=== PATIENT | female | born 1945 | race Caucasian/White ===

== ENCOUNTER → 2016-08-24 | Outpatient (CLI) | payer BC ==
[~2016-08-24] MED LIST: CALC500C70 PO; CDN15 PO; FRS/40 PO; MULT-513 PO; OMEP40CA PO; SPIR50TA3 PO
[2016-08-24 15:38] LABS: URINE APPEARANCE CLEAR (CLEAR); URINE BILIRUBIN NEG (NEG); URINE COLOR YELLOW; URINE NITRITE NEG (NEG); URINE PH 5.5 (4.5-7.5); URINE SPECIFIC GRAVITY 1.011 (1.000-1.030); UROBILINOGEN NEG (NEG)
[2016-08-24 15:39] LABS: MANUAL MICROSCOPIC REQUIRED? NO; REVIEW REQ? NO
== END | disposition home or self-care (01) ==
LOC: C.LAB1850 14:45
PROVIDERS: ATTEND Internal Medicine
DX: R30.0 Dysuria (principal)

== ENCOUNTER → 2016-09-30 | Outpatient (CLI) | payer BC ==
[~2016-09-30] MED LIST changes: +OPTIRAY 320 IV PRN
--- NOTE | 2016-09-30 09:24 | DIAGNOSTIC IMAGING REPORT ---
CT SCAN OF THE CHEST WITH IV CONTRAST CLINICAL HISTORY: Cholangiocarcinoma. COMPARISON STUDY: Chest CT scans dated 06/28/2016 and 12/18/2015. TECHNIQUE: Following the IV administration of 117 cc of Optiray 320, CT scan of the thorax was performed from the thoracic inlet to the upper abdomen. Images are reviewed in the axial, sagittal, and coronal planes. The patient had a mild contrast reaction and was treated in CT. The patient felt better and subsequently went to the cancer center. FINDINGS: Thyroid: Imaged portions of the thyroid gland are normal in size and attenuation. Thoracic aorta: The thoracic aorta is normal in caliber and demonstrates standard 3-vessel arch anatomy. No dissection is seen. A left subclavian central venous infusion port is in place. Pulmonary vasculature: The pulmonary trunk is normal in caliber. There are no filling defects identified in the central pulmonary vessels to indicate pulmonary embolus. Note that this examination was not protocoled for evaluation of the pulmonary arteries. Heart: The heart is normal in size and configuration, and without pericardial effusion. The coronary arteries are calcified. Lungs and pleural spaces there is no airspace consolidation or pleural effusion. The trachea and central airways are clear. Findings are consistent with multifocal pulmonary metastatic disease with greater than 20 lesions present. These nodules appear to have modestly increased in size and number from 06/28/2016. The largest lesions are seen in the right lower lobe on image #129 measuring 10 mm (previously measured 6 mm), and at the right lung base on image #181 measuring 8 mm (previously measuring 6 mm). Mediastinum: There is no mediastinal lymphadenopathy. Taniya: Clear. Axillae: There is no axillary lymphadenopathy. Upper abdomen: Evaluation of the upper abdomen is significantly degraded by motion artifact. The spleen is enlarged, measuring 14.6 cm in length. Intrahepatic or ductal dilatation is noted in the left lobe which demonstrates heterogeneous enhancement. See report of abdominal CT performed concurrently for detailed intra-abdominal findings. Skeletal structures: The skeletal structures are osteopenic. No lytic or blastic bony lesions are seen. IMPRESSION: 1. The patient experienced a mild contrast reaction during the procedure. Premedication will be required for future examinations 2. There is multifocal metastatic pulmonary disease, with greater than 20 lesions identified. There has been modest progression in the size and number of lesions from the 06/28/2016 examination. 3. No airspace consolidation or pleural effusion is seen. 4. No mediastinal, hilar, or axillary lymphadenopathy is seen. 5. Splenomegaly. 6. Intrahepatic biliary ductal dilatation and heterogeneous enhancement is noted in the left hepatic lobe. See report of abdominal CT performed concurrently for detailed intra-abdominal findings. Electronically signed by: Evaristo Kay M.D. 09/30/2016 9:23 AM Dictated Date/Time: 09/30/2016 9:09 AM
--- NOTE | 2016-09-30 09:26 | DIAGNOSTIC IMAGING REPORT ---
ABDOMEN AND PELVIS CT WITH IV AND ORAL CONTRAST CT DOSE: 646.04 mGy.cm HISTORY: There is no CHOLANGIOCARCINOMA TECHNIQUE: Multiaxial CT images of the abdomen and pelvis were performed following the use of intravenous and oral contrast. COMPARISON STUDY: 06/02/2016 FINDINGS: Mildly progressive basilar pulmonary nodularity. There is been a mild increase in size as well as number of parenchymal nodules. Several new nodules measuring up to 3 mm are present. Several pre-existing nodules have increased 1 to 2 mm. Liver continues to demonstrate a component of mild cirrhotic change. Biliary ductal distention of the left hepatic lobe is similar. Gallbladder is somewhat contracted. There again appears be a small gallstone the region of the gallbladder neck. Spleen is mildly enlarged. This is stable. Kidneys enhance appropriately. Bowel pattern is nonobstructive. Fibroid-type uterus is again noted. IMPRESSION: 1. Slightly progressive basilar pulmonary nodularity.. 2. Stable hepatic cirrhotic change is stable distention of the left hepatic lobe biliary ductal system. 3. Gallstone the region of the gallbladder neck unchanged 4. No new or interval process within the abdominal or pelvic regions Electronically signed by: Keo Bruce M.D. 09/30/2016 9:25 AM Dictated Date/Time: 09/30/2016 9:10 AM
== END | disposition home or self-care (01) ==
LOC: C.CTS 08:29
PROVIDERS: ATTEND Internal Medicine Hematology & Oncology
DX: C22.1 Intrahepatic bile duct carcinoma (principal); R16.1 Splenomegaly, not elsewhere classified; K74.60 Unspecified cirrhosis of liver; C78.00 Secondary malignant neoplasm of unspecified lung

== ENCOUNTER → 2016-11-23 | Outpatient (CLI) | payer BC ==
[~2016-11-23] MED LIST changes: +AMOX1TAB43 PO; +CLC100 PO; +CPR500 PO; +CRG/20 PO; +MRLP17X PO; -OPTIRAY 320 IV PRN; +OXYC-609 PO; +POLY1POW2 PO; +POLY335019 PO; +PRLSR20 PO; +ULT50X PO
--- NOTE | 2016-11-23 08:39 | DIAGNOSTIC IMAGING REPORT ---
CT OF THE ABDOMEN WITH ORAL CONTRAST CT DOSE: 205.21 mGy.cm CLINICAL HISTORY: Increasing abdominal pain. Cholangiocarcinoma. TECHNIQUE: Axial images of the abdomen were obtained without IV contrast. Oral contrast was ministered. COMPARISON STUDY: CT of the abdomen and pelvis September 30, 2016. FINDINGS: Visualized portions of the lower chest demonstrate slight increase in size of multiple pulmonary nodules since exam of September 30, 2016. An index right lower lobe nodule shown on image 43 of 301 measures 9 mm on this exam. It previously measured 8 mm. An index left lower lobe nodule shown on image 5 measures 7 mm. It previously measured 6 mm. Evaluation of the abdomen and pelvis is suboptimal given the lack of IV contrast. Marked left hepatic lobe biliary ductal dilatation is unchanged. There is left hepatic lobe atrophy. Abrupt cut off of the left hepatic duct is again noted. The liver is cirrhotic. Splenomegaly is unchanged. There is trace abdominal ascites. Small collaterals are noted. There is no hydronephrosis. A punctate right renal calculus is noted. Gallstones within the gallbladder noted to the gallbladder is nondistended. No suspicious osseous lesions are present. Caliber of visualized small and large bowel are normal. Sensitivity for detection of hepatic lesions is diminished on this unenhanced study. IMPRESSION: 1. No significant change in left hepatic lobe biliary ductal dilatation with abrupt cut off of the left hepatic duct due to known cholangiocarcinoma. 2. Cirrhosis with manifestations of portal hypertension including trace ascites, splenomegaly and varices formation. 3. Cholelithiasis with gallbladder wall thickening. 4. Slight increase in size of multiple pulmonary nodules since CT of September 30, 2016 which favors progression of metastatic disease. 5. Suboptimal evaluation of the abdomen given the lack of IV contrast. Electronically signed by: Panda Peter M.D. 11/23/2016 8:38 AM Dictated Date/Time: 11/23/2016 8:25 AM
== END | disposition home or self-care (01) ==
LOC: C.CTS 07:39
PROVIDERS: ATTEND Internal Medicine
DX: K80.20 Calculus of gallbladder without cholecystitis without obstruction (principal); K76.6 Portal hypertension; K74.69 Other cirrhosis of liver; C22.1 Intrahepatic bile duct carcinoma

== ENCOUNTER → 2017-01-25 | Outpatient (CLI) | payer BC ==
[~2017-01-25] MED LIST changes: -AMOX1TAB43 PO; -CLC100 PO; -CPR500 PO; -CRG/20 PO; -MRLP17X PO; +MethylPREDNISolone HOME PACK 16 MG TAB PO SCH; +OPTIRAY 320 IV PRN; -OXYC-609 PO; -POLY1POW2 PO; -POLY335019 PO; -PRLSR20 PO; -ULT50X PO
--- NOTE | 2017-01-25 14:26 | DIAGNOSTIC IMAGING REPORT ---
(CHEST) THORAX WITH HISTORY:71 yearsFemaleCHOLANGIO CARCINOMA metastatic disease follow-up. COMPARISON: CT abdomen and pelvis of same day, CT chest 09/30/2016. TECHNIQUE: Multiple axial CT images of the chest were obtained following the intravenous administration of 94 mL Optiray 320. FINDINGS: No dominant thyroid nodule is seen. There are a few scattered prominent pretracheal lymph nodes seen which appear unchanged. No new adenopathy identified. The heart is normal in size without pericardial effusion. Coronary arterial calcifications are noted. Left subclavian catheter terminates in the proximal right atrium. There is mild mixed plaquing of the thoracic aorta. There is no pneumothorax or pleural effusion. Multiple scattered pulmonary metastasis are again seen a multilobar distribution bilaterally with predilection for the lower lobes. Several of these nodules are slightly larger from the comparison study dated 09/30/2016. For example index nodule of the superior segment right lower lobe on image 25 of the axial series measures 10 x 9 mm, previously 8 x 8 mm. Index nodule of the lateral basal segment right lower lobe on image 35 of the axial series measures 9 x 8 mm, previously 7 x 6 mm. Index nodule of the left lower lobe seen on image 29 now measures 6 x 5 mm, previously 5 x 4 mm. Central airways are patent. No definite pleural metastasis identified. Intrahepatic biliary ductal dilatation with heterogeneous enhancement and capsular contraction of the left hepatic lobe is again seen. There is circumferential wall thickening of the gallbladder with a moderate amount of perihepatic ascites. Spleen is again enlarged, 14.5 cm. There is moderate pancreatic atrophy. Soft tissues are unremarkable. No suspicious lytic or blastic bony foci identified. IMPRESSION: 1. Multifocal multilobar distribution of pulmonary metastasis redemonstrated with several of the lesions noticeably increased in size from the comparison study dated 09/30/2016 compatible with progression of disease. 2. No new adenopathy identified. 3. Unchanged splenomegaly. 4. Please see abdomen and pelvis study of same day for discussion of the abdominal findings. The above report was generated using voice recognition software. It may contain grammatical, syntax or spelling errors. Electronically signed by: Cuong Garcia M.D. 01/25/2017 2:24 PM Dictated Date/Time: 01/25/2017 2:15 PM
--- NOTE | 2017-01-25 14:33 | DIAGNOSTIC IMAGING REPORT ---
CT SCAN OF THE ABDOMEN AND PELVIS WITH IV CONTRAST CLINICAL HISTORY: Cholangiocarcinoma. COMPARISON STUDY: Prior abdominal CT scans, most recently dated 11/23/2016. TECHNIQUE: Following the IV administration of 94 cc of Optiray 320, CT scan of the abdomen and pelvis is performed from the lung bases to the proximal femora. Images are reviewed in the axial, sagittal, and coronal planes. The patient was premedicated for a reported history of contrast allergy. IV contrast was administered without complication. Automated dose control exposure was utilized. FINDINGS: Lung bases: The tip of a central venous infusion port is noted at the cavoatrial junction. The heart is normal in size and without pericardial effusion. There are coronary artery calcifications. A small hiatal hernia is noted. There is no airspace consolidation or pleural effusion. Pulmonary metastases are again seen at both lung bases. These increased in both size and number from 11/23/2016. The largest lesion is seen in the right lower lobe on image #29 and measures 1.1 cm (previously measured 0.9 cm) there is Liver: The contrast-enhanced liver is cirrhotic in morphology and heterogeneous in attenuation. There is nodularity of the hepatic surface contour. There has been no significant change in the appearance of left hepatic lobe. Ductal dilatation with broad cutoff due to the patient's known history of cholangiocarcinoma. The mass lesion itself was not well delayed needed. There is no right-sided intrahepatic biliary ductal dilatation. The hepatic veins and portal veins are patent. There are paraesophageal and perigastric varices. Gallbladder: Small calcified gallstones are noted. There is nonspecific gallbladder wall thickening, likely related to cirrhosis. Spleen: The spleen is enlarged measuring over 15 cm in length. Pancreas: Unremarkable. Adrenal glands: Unremarkable. Kidneys: The contrast enhanced kidneys are normal in size and without hydronephrosis. The kidneys enhance symmetrically. Abdominal vasculature: The abdominal aorta is normal in course and caliber noting mild to moderate atherosclerotic calcification. Bowel: The small bowel and colon are normal in course and caliber. There is moderate colonic fecal retention. The appendix is well-visualized and normal. Peritoneum: There is trace perihepatic ascites. No intraperitoneal free air is seen. There is a fat-containing umbilical hernia. A midline surgical scar is noted. Numerous subtle peritoneal implants are suggested. A lesion in the central mesentery is seen on image #152 and measures 10 mm. Additional medical claims representative lesions are seen on images #167, #204, #230, #264, Lymphadenopathy: Retroperitoneal lymphadenopathy appears modestly worsened from 11/23/2016. Aortocaval node on image #149 measures 1.1 cm in short axis (producing measuring 0.8 cm) enlarged lymph nodes in the bryson hepatis and gastrohepatic region are similar in appearance to previous. A gastrohepatic node on image #89 measures 1.0 cm in short axis. A portacaval node on image #99 measures 0.9 cm in short axis. Pelvic viscera: The bladder is distended and grossly unremarkable. The uterus is enlarged and infiltrated by numerous fibroids. There is an enlarging low-attenuation lesion along the right aspect of the uterine body seen on image #343. This measures up to 5.0 cm. Skeletal structures: The skeletal structures are osteopenic. There is mild to moderate lumbosacral spondylosis. No lytic or blastic lesions are seen. IMPRESSION: 1. No significant change in the appearance of dilated intrahepatic ducts in the left lobe consistent with the reported history of cholangiocarcinoma when compared to 11/23/2016. 2. Cirrhotic liver morphology with evidence of portal hypertension including trace ascites, splenomegaly, paraesophageal varices, and perisplenic varices. 3. Progression of pulmonary metastatic disease at the lung bases as compared to 11/23/2016. 4. Slight increase in retroperitoneal lymphadenopathy from previous, also likely representing metastatic disease. 5. There are numerous subtle foci of irregular nodularity seen scattered throughout the peritoneum. The appearance is concerning for peritoneal implants and carcinomatosis. 6. Cholelithiasis. Gallbladder wall thickening is nonspecific and likely related to cirrhosis. 7. There is an enlarged fibroid uterus. An enlarging low-attenuation structure seen along the right aspect of the uterus may represent a degenerating fibroid. 8. Additional findings as above. Electronically signed by: Evaristo Kay M.D. 01/25/2017 2:32 PM Dictated Date/Time: 01/25/2017 2:15 PM
== END | disposition home or self-care (01) ==
LOC: C.CTS 13:20
PROVIDERS: ATTEND Internal Medicine Hematology & Oncology
DX: C22.1 Intrahepatic bile duct carcinoma (principal); C78.00 Secondary malignant neoplasm of unspecified lung; K80.20 Calculus of gallbladder without cholecystitis without obstruction; N85.2 Hypertrophy of uterus; R16.0 Hepatomegaly, not elsewhere classified; B18.2 Chronic viral hepatitis C

== ENCOUNTER → 2017-03-28 | Outpatient (CLI) | payer BC ==
[~2017-03-28] MED LIST changes: -MethylPREDNISolone HOME PACK 16 MG TAB PO SCH; -OPTIRAY 320 IV PRN
--- NOTE | 2017-03-28 12:36 | DIAGNOSTIC IMAGING REPORT ---
CHEST 2 VIEWS ROUTINE CLINICAL HISTORY: 71 years-old Female presenting with dyspnea on exertion. TECHNIQUE: PA and lateral views of the chest were obtained. COMPARISON: 02/03/2016. FINDINGS: Left subclavian Mediport terminates in the region of the cavoatrial junction. Cardiomediastinal silhouette normal. Lungs and pleural spaces clear. Osseous structures normal. Upper abdomen normal. IMPRESSION: 1. No acute cardiopulmonary disease. Electronically signed by: Laurent Thornton M.D. 03/28/2017 12:35 PM Dictated Date/Time: 03/28/2017 12:34 PM
[2017-03-28 13:44] LABS: HEMATOCRIT 36.8 % (37-47); MEAN CELL VOLUME 102.8 fL (80-100); MEAN CORPUSCULAR HEMOGLOBIN 34.6 pg (25-34); MEAN CORPUSCULAR HGB CONC 33.7 g/dl (32-36); PLATELET COUNT 36 K/uL (130-400); RED BLOOD COUNT 3.58 M/uL (4.2-5.4); WHITE BLOOD COUNT 6.67 K/uL (4.8-10.8)
[2017-03-28 13:45] LABS: BASO % 0.4 %; BASO ABS # 0.03 K/uL (0-0.2); COMPLETE YES; EOS % 3.3 %; LYMPH % 16.8 %; LYMPH ABS # 1.12 K/uL (1.2-3.4); MONO % 8.5 %; PLT ESTIMATE DECREASED
[2017-03-28 13:52] LABS: ALT/SGPT 143 U/L (12-78); BLOOD UREA NITROGEN 18 mg/dl (7-18); BUN/CREATININE RATIO 18.9 (10-20); CALCIUM 8.8 mg/dl (8.5-10.1); CARBON DIOXIDE 30 mmol/L (21-32); CHLORIDE 100 mmol/L (98-107); CREATININE 0.94 mg/dl (0.60-1.20); GLUCOSE 242 mg/dl (70-99); POTASSIUM 4.5 mmol/L (3.5-5.1); SODIUM 134 mmol/L (136-145)
[2017-03-28 13:56] LABS: ALB/GLOB RATIO 0.5 (0.9-2); ALKALINE PHOSPHATASE 180 U/L (45-117); AST/SGOT 189 U/L (15-37)
== END | disposition home or self-care (01) ==
LOC: C.RAD1850 11:49
PROVIDERS: ATTEND Internal Medicine
DX: R06.09 Other forms of dyspnea (principal)

== ENCOUNTER → 2017-04-22 | Outpatient (CLI) | payer BC ==
--- NOTE | 2017-04-22 16:44 | DIAGNOSTIC IMAGING REPORT ---
(CHEST) THORAX WITHOUT CLINICAL HISTORY: 71 years-old Female presenting with cholangiocarcinoma: Follow. TECHNIQUE: Multidetector CT imaging of the chest was performed without the use of intravenous contrast. IV contrast: None. A dose lowering technique was used consistent with the principles of ALARA (as low as reasonably achievable). COMPARISON: 01/25/2017. CT DOSE (mGy.cm): The estimated cumulative dose is 521.[address] abdomen and pelvis. FINDINGS: [employer] topogram: Left subclavian Mediport in place. On soft tissue windows, left subclavian Mediport terminates in the superior cavoatrial junction. Normal thyroid. Few prominent subcentimeter mediastinal lymph nodes are unchanged from prior, the largest in the precarinal region measuring 9 mm. Evaluation of the markie limited without intravenous contrast. Atherosclerosis of the descending aorta. Normal heart size. Coronary artery calcification. No pericardial or pleural effusion. Diffusely heterogeneous appearance of the left hepatic lobe with marked biliary ductal dilatation, capsular retraction, and a micronodular contour of the liver, unchanged. Small amount of perihepatic ascites unchanged. Cholelithiasis suggested. Decompressed gallbladder. Prominent spleen. Postsurgical changes of the ventral abdominal wall. On lung windows, multifocal solid pulmonary nodules scattered throughout all 5 lobes, the vast majority of which were present on the prior exam although a few are new from prior. The vast majority have also minimally increased in size by 1 to 2 mm. Several lesions have been measured on the images to demonstrate this. Airways patent. On bone windows, degenerative changes of the thoracic spine. IMPRESSION: 1. Slight interval increase in size (1 to 2 mm) of the vast majority of the solid bilateral pulmonary nodules. A few lesions are new from prior. 2. No lymphadenopathy. 3. Probable splenomegaly. Please see separately dictated CT of abdomen pelvis. Electronically signed by: Laurent Thornton M.D. 04/22/2017 4:43 PM Dictated Date/Time: 04/22/2017 4:33 PM
--- NOTE | 2017-04-22 16:51 | DIAGNOSTIC IMAGING REPORT ---
ABDOMEN AND PELVIS CT WITHOUT CONTRAST CT DOSE: 521.11 mGy.cm HISTORY: Cholangiocarcinoma. TECHNIQUE: Multiaxial CT images of the abdomen and pelvis were performed without contrast. A dose lowering technique was utilized adhering to the principles of ALARA. COMPARISON STUDY: Abdomen and pelvis CT 01/25/2017. FINDINGS: Multiple bilateral pulmonary nodules majority of which of increase in size. No pneumoperitoneum. No pneumatosis. No suspicious lytic or blastic osseous lesions. Dilated left intrahepatic bile ducts remain unchanged. This is consistent with the patient's history of cholangiocarcinoma. Of note, evaluation for liver mass is suboptimal due to the lack of intravenous contrast. Punctate gallstone. Small amount perihepatic fluid, unchanged. Nodular contour to the liver consistent with cirrhosis. The spleen remains mildly enlarged. Adrenal glands and unenhanced kidneys are unremarkable. Normal pancreas. Mild periportal lymphadenopathy persists. Abdominal varicosities are again noted. Multiple calcified uterine fibroids. Normal bladder. No bowel wall thickening or obstruction. Single mildly enlarged lymph node adjacent to the right gonadal vein on image 53. This also remains unchanged. Mild fat stranding surrounding the second and third portion of the duodenum with mild fluid within the anterior pararenal space. This is slightly progressed. This could represent a developing acute pancreatitis. Subtle nodularity along the peritoneum persists. IMPRESSION: 1. Increase in size of the pulmonary nodules consistent with progression of metastatic disease. 2. Dilated intrahepatic bile ducts prominent within the left hepatic lobe are consistent with the patient's history of cholangiocarcinoma. This remains unchanged. 3. Cirrhotic liver with splenomegaly and upper abdominal varices. 4. Cholelithiasis. 5. Subtle foci of irregular nodularity seen scattered throughout the peritoneum. This raises the possibility of peritoneal carcinomatosis and is also unchanged. 6. Mild fat stranding surrounding the second and third portion of the duodenum with mild fluid within the anterior pararenal space. This is slightly progressed and could represent a developing acute pancreatitis. Recommend correlation with pancreatic and lines.. 7. Mild lymphadenopathy remains unchanged as described above. Electronically signed by: Ross Kruger M.D. 04/22/2017 4:50 PM Dictated Date/Time: 04/22/2017 4:41 PM
== END | disposition home or self-care (01) ==
LOC: C.CTS 15:57
PROVIDERS: ATTEND Nurse Practitioner Family
DX: C22.1 Intrahepatic bile duct carcinoma (principal); R91.8 Other nonspecific abnormal finding of lung field; K74.60 Unspecified cirrhosis of liver; R16.1 Splenomegaly, not elsewhere classified; K80.20 Calculus of gallbladder without cholecystitis without obstruction

== ENCOUNTER 2017-05-16 14:31 | Observation (INO) | payer BC ==
[~2017-05-16] VITALS: Ht 157.5 cm; Wt 81.2 kg
[2017-05-16] MEDS ORDERED: ONDANSETRON INJ 2 MG/ML 2 ML VIAL IV STA (15:07)
[2017-05-16] MEDS ORDERED: SODIUM CHLORIDE 0.9% 1000ML 1,000 ML IV STA (15:07)
[2017-05-16] MEDS ORDERED: MoRPHine SULFATE 4 MG/ML 1 ML CARP\\VIAL IV PRN (15:15)
--- NOTE | 2017-05-16 15:19 | EMERGENCY ROOM VISIT NOTE ---
History Report prepared by Christian: Delmar Caraballo Under the Supervision of: Dr. Nick Guillen D.O. First contact with patient: 14:58 Chief Complaint: SHORTNESS OF BREATH Stated Complaint: PAIN,SHORT OF BREATH,CONSTIPATED Nursing Triage Summary: triage note: pt ambulatory to triage. pt reports " justyn sent me here." pt reports shortness of breath, constipation, left abd pressure. pt reports having aterial spleenic embolization at [facility] [place] . History of Present Illness The patient is a 72 year old female who presents to the Emergency Room with complaints of constant shortness of breath starting four days ago. The patient states that four days ago she had an arterial splenic embolization and a platelet transfusion, and she states that her symptoms started afterwards. Additionally, the patient notes that she has a history of cholangiocarcinoma and cirrhosis. The patient is also complaining of abdominal pain, constipation, and weakness. She denies any cough, nausea, vomiting, fevers, chills, worse leg swelling, and any recent medication changes. The patient states that she was going to have surgery for her cholangiocarcinoma, however they could not due to her cirrhosis. Source of History: patient Onset: four days ago Position: other (global) Quality: other (shortness of breath) Timing: constant Associated Symptoms: + abdominal pain, + weakness, No fevers, No chills, No cough, No nausea, No vomiting Review of Systems See HPI for pertinent positives & negatives. A total of 10 systems reviewed and were otherwise negative. Past Medical & Surgical Medical Problems: (1) Abdominal pain (2) Ascending cholangitis (3) Hepatitis C (4) Jaundice Family History FHx: cancer Social History Smoking Status: Never Smoker Marital Status: Housing Status: lives with family Occupation Status: employed Current/Historical Medications Scheduled Calcium/Vitamin D (Os-Alexis 500 Plus D), 1 TAB PO BID Furosemide (Lasix), 40 MG PO QAM Multivitamins/Minerals (Mvi With Minerals), 1 TAB PO QAM Nadolol (Corgard), 20 MG PO QPM Omeprazole (Prilosec), 20 MG PO QAM Spironolactone (Aldactone), 50 MG PO BID Scheduled PRN Codeine Sulfate (Codeine), 15 MG PO Q4H PRN for Pain Oxycodone HCl (Oxycodone HCl), 5 MG PO Q4 PRN for Pain Polyethylene (Miralax), 17 GM PO DAILY PRN for Constipation Allergies Coded Allergies: Iodinated Diagnostic Agents (Unverified Allergy, Mild, SNEEZING, ITCHY NOSE, 05/16/17) Physical Exam Vital Signs Date Time Temp Pulse Resp B/P (MAP) Pulse Ox O2 Delivery O2 Flow Rate FiO2 05/16/17 18:06 89 112/53 93 Room Air 05/16/17 18:01 89 19 05/16/17 17:35 106/65 05/16/17 17:31 89 24 05/16/17 16:31 88 25 05/16/17 16:14 88 05/16/17 14:36 36.9 87 22 129/70 96 Room Air Physical Exam GENERAL: Patient is awake, alert, somewhat anxious appearing and uncomfortable EYES: The conjunctivae are clear. The pupils are round and reactive. EARS, NOSE, MOUTH AND THROAT: The nose is without any evidence of any deformity. Mucous membranes are moist tongue is midline NECK: The neck is nontender and supple. RESPIRATORY: Lung sounds diminished at both bases and rales at both bases. CARDIOVASCULAR: Regular rate and rhythm noted there no murmurs rubs or gallops normal S1 normal S2 GASTROINTESTINAL: The abdomen is moderately distended and there is diffuse tenderness. No guarding or rigidity. MUSCULOSKELETAL/EXTREMITIES: There is no evidence of gross deformity full range of motion is noted in the hips and shoulders SKIN: Pedal edema bilaterally. There is no obvious evidence of any rash. There are no petechiae, pallor or cyanosis noted. NEUROLOGIC: Patient is awake alert and oriented x3 Medical Decision & Procedures ER Provider Diagnostic Interpretation: Radiology results as stated below per my review and radiologist interpretation: ABDOMEN 2VIEW W/PA CHEST RTN CLINICAL HISTORY: ABDOMINAL PAIN/GI pain COMPARISON STUDY: 03/28/2017 FINDINGS: Central catheter in the right atrium. A basilar atelectatic change. Small fibrocalcific nodule lateral aspect right upper lung unchanged. Bowel pattern is nonobstructive. Several air-filled loops of small bowel present suggesting a mild nonobstructive ileus. There are degenerative changes of the osseous structures throughout. IMPRESSION: 1. Mild bibasilar atelectatic change. 2. Mild generalized nonobstructive ileus. The above report was generated using voice recognition software. It may contain grammatical, syntax or spelling errors. Electronically signed by: Keo Bruce M.D. 05/16/2017 5:09 PM Dictated Date/Time: 05/16/2017 5:08 PM Laboratory Results 05/16/17 16:00 Red Blood Count 3.33, Mean Corpuscular Volume 101.2, Mean Corpuscular Hemoglobin 34.2, Mean Corpuscular Hemoglobin Concent 33.8, Mean Platelet Volume 11.6, Neutrophils (%) (Auto) 63.5, Lymphocytes (%) (Auto) 13.3, Monocytes (%) ( Auto) 21.8, Eosinophils (%) (Auto) 0.5, Basophils (%) (Auto) 0.1, Neutrophils # (Auto) 4.79, Lymphocytes # (Auto) 1.00, Monocytes # (Auto) 1.64, Eosinophils # ( Auto) 0.04, Basophils # (Auto) 0.01 Test 05/16/17 16:00 05/16/17 18:13 White Blood Count 7.54 K/uL (4.8-10.8) Red Blood Count 3.33 M/uL (4.2-5.4) Hemoglobin 11.4 g/dL (12.0-16.0) Hematocrit 33.7 % (37-47) Mean Corpuscular Volume 101.2 fL (80-100) Mean Corpuscular Hemoglobin 34.2 pg (25-34) Mean Corpuscular Hemoglobin Concent 33.8 g/dl (32-36) Platelet Count 28 K/uL (130-400) Mean Platelet Volume 11.6 fL (7.4-10.4) Neutrophils (%) (Auto) 63.5 % Lymphocytes (%) (Auto) 13.3 % Monocytes (%) (Auto) 21.8 % Eosinophils (%) (Auto) 0.5 % Basophils (%) (Auto) 0.1 % Neutrophils # (Auto) 4.79 K/uL (1.4-6.5) Lymphocytes # (Auto) 1.00 K/uL (1.2-3.4) Monocytes # (Auto) 1.64 K/uL (0.11-0.59) Eosinophils # (Auto) 0.04 K/uL (0-0.5) Basophils # (Auto) 0.01 K/uL (0-0.2) RDW Standard Deviation 53.5 fL (36.4-46.3) RDW Coefficient of Variation 14.5 % (11.5-14.5) Immature Granulocyte % (Auto) 0.8 % Immature Granulocyte # (Auto) 0.06 K/uL (0.00-0.02) Toxic Vacuolation 1+ Platelet Estimate SIGNIFIC DECREASED Total Bilirubin 2.2 mg/dl (0.2-1) Alanine Aminotransferase (ALT/SGPT) 144 U/L (12-78) Alkaline Phosphatase 140 U/L (45-117) Creatine Kinase MB 1.1 ng/ml (0.5-3.6) Creatine Kinase MB Ratio (0-3.0) Troponin I < 0.015 ng/ml (0-0.045) Total Protein 6.1 gm/dl (6.4-8.2) Albumin 2.0 gm/dl (3.4-5.0) Lipase 92 U/L (73-393) Prothrombin Time 13.5 SECONDS (9.0-12.0) Prothromb Time International Ratio 1.3 (0.9-1.1) Activated Partial Thromboplast Time 31.3 SECONDS (21.0-31.0) Partial Thromboplastin Ratio 1.2 Direct Bilirubin 1.0 mg/dl (0-0.2) Aspartate Amino Transf (AST/SGOT) 166 U/L (15-37) Total Creatine Kinase 142 U/L (26-192) Laboratory results per my review. Medications Administered Medications (Trade) Dose Ordered Sig/Tigist Route Start Time Stop Time Status Last Admin Dose Admin Sodium Chloride 1,000 ml @ 125 mls/hr Q8H STAT IV 05/16/17 15:07 05/16/17 20:38 DC 05/16/17 16:26 125 MLS/HR Morphine Sulfate (MoRPHine SULFATE INJ) 4 mg Q15M PRN IV 05/16/17 15:15 05/16/17 20:38 DC 05/16/17 16:27 4 MG Ondansetron HCl (Zofran Inj) 4 mg NOW STAT IV 05/16/17 15:07 05/16/17 15:08 DC 05/16/17 16:26 4 MG ECG Indication: abdominal pain, SOB/dyspnea Rate (beats per minute): 90 Rhythm: normal sinus Findings: no ectopy, other (Poor R wave progression. Low voltage throughout) Comparison ECG Date: no prior available ED Course 1458: The patient was evaluated in room B5. A complete history and physical examination were performed. 1507: Zofran 4mg IV, NSS 1,000 ml @ 125 mls/hr IV 1515: Morphine Sulfate 4mg IV 1611: I reevaluated the patient, and she was doing okay 1718: Soaps Suds Enema NM 1724: I discussed the patient's case with Dr. Yee. The patient will be evaluated for further management. Medical Decision Differential diagnosis: Etiologies such as appendicitis, diverticulitis, PUD, biliary pathology, UTI, pancreatitis, obstruction, mesenteric ischemia, aortic pathology, infections, inflammatory bowel disease, renal colic, as well as others were entertained. Nursing notes reviewed. The patient is a 72-year-old male who sent to the emergency department by her primary care physician for admission for pain control and for severe constipation. The patient has a history of cholangiocarcinoma and had a recent procedure at [facility]. The patient was having significant pain and constipation ever since this procedure. She was evaluated by her primary care physician and sent to the emergency department for further evaluation as well as admission for pain control. The patient was treated with IV fluids IV pain medicine and IV antiemetics. I discussed her case with the on-call [facility] hospitalist group. Her x-rays did not show a definite obstruction so soapsuds enema was also ordered. Medication Reconcilliation Current Medication List: was personally reviewed by me Blood Pressure Screening Patient's blood pressure: Normal blood pressure Consults Time Called: 1722 Consulting Physician: Dr. Yee Returned Call: [phone] I discussed the patient's case with Dr. Yee. The patient will be evaluated for further management. Impression Primary Impression: Abdominal pain Additional Impressions: Constipation Hyponatremia Scribe Attestation The scribe's documentation has been prepared under my direction and personally reviewed by me in its entirety. I confirm that the note above accurately reflects all work, treatment, procedures, and medical decision making performed by me. Departure Information Dispostion Being Evaluated By Hospitalist Prescriptions Polyethylene (Miralax) 17 Gm Pow 17 GM PO DAILY Y for Constipation for 30 Days, #30 DOSE Use if no bowel movement in 2 days Prov: Penelope Rajput PA-C 05/17/17 Referrals Sheng Lopez M.D. (PCP) Patient Instructions My [facility] Problem Qualifiers Primary Impression: Abdominal pain Abdominal location: generalized Qualified Codes: R10.84 - Generalized abdominal pain Additional Impressions: Constipation Constipation type: unspecified constipation type Qualified Codes: K59.00 - Constipation, unspecified
[2017-05-16] MEDS ORDERED: CRG/20 PO (15:26)
[2017-05-16] MEDS ORDERED: PRLSR20 PO (15:26)
[2017-05-16] MEDS ORDERED: OXYC-609 PO (15:27)
[2017-05-16 16:57] LABS: ALKALINE PHOSPHATASE 140 U/L (45-117); ALT/SGPT 144 U/L (12-78); BLOOD UREA NITROGEN 20 mg/dl (7-18); BUN/CREATININE RATIO 22.4 (10-20); CALCIUM 8.4 mg/dl (8.5-10.1); CARBON DIOXIDE 22 mmol/L (21-32); CHLORIDE 100 mmol/L (98-107); CREATININE 0.87 mg/dl (0.60-1.20); GLUCOSE 253 mg/dl (70-99); SODIUM 130 mmol/L (136-145)
[2017-05-16 17:01] LABS: HEMATOCRIT 33.7 % (37-47); MEAN CELL VOLUME 101.2 fL (80-100); MEAN CORPUSCULAR HEMOGLOBIN 34.2 pg (25-34); MEAN CORPUSCULAR HGB CONC 33.8 g/dl (32-36); MEAN PLATELET VOLUME 11.6 fL (7.4-10.4); PLATELET COUNT 28 K/uL (130-400); RED BLOOD COUNT 3.33 M/uL (4.2-5.4); WHITE BLOOD COUNT 7.54 K/uL (4.8-10.8)
[2017-05-16 17:02] LABS: BASO % 0.1 %; BASO ABS # 0.01 K/uL (0-0.2); COMPLETE YES; EOS % 0.5 %; IG% 0.8 %; LYMPH % 13.3 %; MONO % 21.8 %; NEUT % 63.5 %; PLT ESTIMATE SIGNIFIC DECREASED
[2017-05-16 17:03] LABS: VACUOLIZATION 1+
--- NOTE | 2017-05-16 17:11 | DIAGNOSTIC IMAGING REPORT ---
ABDOMEN 2VIEW W/PA CHEST RTN CLINICAL HISTORY: ABDOMINAL PAIN/GI pain COMPARISON STUDY: 03/28/2017 FINDINGS: Central catheter in the right atrium. A basilar atelectatic change. Small fibrocalcific nodule lateral aspect right upper lung unchanged. Bowel pattern is nonobstructive. Several air-filled loops of small bowel present suggesting a mild nonobstructive ileus. There are degenerative changes of the osseous structures throughout. IMPRESSION: 1. Mild bibasilar atelectatic change. 2. Mild generalized nonobstructive ileus. The above report was generated using voice recognition software. It may contain grammatical, syntax or spelling errors. Electronically signed by: Keo Bruce M.D. 05/16/2017 5:09 PM Dictated Date/Time: 05/16/2017 5:08 PM
[2017-05-16] MEDS ORDERED: SOAP SUDS ENEMA PR STA (17:18)
[2017-05-16 18:40] LABS: INR 1.3 (0.9-1.1); PARTIAL THROMBOPLASTIN RATIO 1.2; PROTHROMBIN TIME (PATIENT) 13.5 SECONDS (9.0-12.0)
[2017-05-16 18:41] LABS: POTASSIUM 4.7 mmol/L (3.5-5.1)
[2017-05-16] MEDS ORDERED: MAGNESIUM HYDROXIDE SUSP 30 ML UDC PO PRN (19:00)
[2017-05-16] MEDS ORDERED: POLYETHYLENE (MIRALAX) 17 GM PACK PO PRN (19:00)
[2017-05-16] MEDS ORDERED: ONDANSETRON INJ 2 MG/ML 2 ML VIAL IV PRN (19:00)
[2017-05-16] MEDS ORDERED: ACETAMINOPHEN 325 MG TAB PO PRN (19:00)
[2017-05-16] MEDS ORDERED: ALUMINUM/MAGNESIUM/SIMETH (MAALOX MAX) 30 ML UDC PO PRN (19:00)
[2017-05-16 20:12] VITALS: O2SAT 94; Ht 157.5 cm; Wt 81.2 kg
[2017-05-16 20:42] LABS: URINE APPEARANCE CLEAR (CLEAR); URINE BILIRUBIN NEG (NEG); URINE COLOR DK YELLOW; URINE NITRITE NEG (NEG); URINE PH 5.5 (4.5-7.5); URINE SPECIFIC GRAVITY 1.021 (1.000-1.030); UROBILINOGEN NEG (NEG)
[2017-05-16 20:43] LABS: MANUAL MICROSCOPIC REQUIRED? NO; REVIEW REQ? NO
[2017-05-16] MEDS ORDERED: IV FLUIDS COMPLETED PRN (21:00)
[2017-05-16] MEDS ORDERED: NADOLOL 40 MG TAB PO SCH (21:00)
[2017-05-16] MEDS: POLYETHYLENE (MIRALAX) 17 GM PACK PO SCH (21:00)
[2017-05-16 21:06] VITALS: BP 97/62; PULSE 81; TEMP 37.1; O2SAT 94
[2017-05-16] MEDS ORDERED: SOD PHOSPHATE/SOD BIPHOSPHATE ENEMA 132 ML BTL PR PRN (22:00)
[2017-05-16] MEDS ORDERED: POLYETHYLENE (MIRALAX) 17 GM PACK PO STA (22:03)
--- NOTE | 2017-05-16 22:10 | History and Physical ---
History & Physical Date & Time of Service: May 16, 2017 at 22:10 Chief Complaint: Abdominal Pain Primary Care Physician: Sheng Lopez M.D. Past Medical/Surgical History Medical Problems: (1) Hepatitis C Status: Chronic Family History FHx: cancer Social History Smoking Status: Never Smoker Marital Status: Occupational Status: employed Immunizations History of Influenza Vaccine: Yes Influenza Vaccine Date: May 05, 2015 History of Tetanus Vaccine?: Unknown History of Pneumococcal: Unknown History of Hepatitis B Vaccine: Unknown Multi-Drug Resistant Organisms History of MDRO: No Allergies Coded Allergies: Iodinated Diagnostic Agents (Unverified Allergy, Mild, SNEEZING, ITCHY NOSE, 05/16/17) Home Medications Scheduled Calcium/Vitamin D (Os-Alexis 500 Plus D), 1 TAB PO BID Furosemide (Lasix), 40 MG PO QAM Multivitamins/Minerals (Mvi With Minerals), 1 TAB PO QAM Nadolol (Corgard), 20 MG PO QPM Omeprazole (Prilosec), 20 MG PO QAM Spironolactone (Aldactone), 50 MG PO BID Scheduled PRN Codeine Sulfate (Codeine), 15 MG PO Q4H PRN for Pain Oxycodone HCl (Oxycodone HCl), 5 MG PO Q4 PRN for Pain Physical Exam Vital Signs Date Time Temp Pulse Resp B/P (MAP) Pulse Ox O2 Delivery O2 Flow Rate FiO2 05/16/17 21:06 37.1 81 20 97/62 (74) 94 Room Air 05/16/17 20:12 94 Room Air 05/16/17 20:10 85 100/66 92 05/16/17 18:06 89 112/53 93 Room Air 05/16/17 18:01 89 19 05/16/17 17:35 106/65 05/16/17 17:31 89 24 05/16/17 16:31 88 25 05/16/17 16:14 88 05/16/17 14:36 36.9 87 22 129/70 96 Room Air Diagnostics Laboratory Results Results Past 24 Hours Test 05/16/17 16:00 05/16/17 18:13 05/16/17 20:14 Range/Units White Blood Count 7.54 4.8-10.8 K/uL Red Blood Count 3.33 4.2-5.4 M/uL Hemoglobin 11.4 12.0-16.0 g/dL Hematocrit 33.7 37-47 % Mean Corpuscular Volume 101.2 80-100 fL Mean Corpuscular Hemoglobin 34.2 25-34 pg Mean Corpuscular Hemoglobin Concent 33.8 32-36 g/dl Platelet Count 28 130-400 K/uL Mean Platelet Volume 11.6 7.4-10.4 fL Neutrophils (%) (Auto) 63.5 % Lymphocytes (%) (Auto) 13.3 % Monocytes (%) (Auto) 21.8 % Eosinophils (%) (Auto) 0.5 % Basophils (%) (Auto) 0.1 % Neutrophils # (Auto) 4.79 1.4-6.5 K/uL Lymphocytes # (Auto) 1.00 1.2-3.4 K/uL Monocytes # (Auto) 1.64 0.11-0.59 K/uL Eosinophils # (Auto) 0.04 0-0.5 K/uL Basophils # (Auto) 0.01 0-0.2 K/uL RDW Standard Deviation 53.5 36.4-46.3 fL RDW Coefficient of Variation 14.5 11.5-14.5 % Immature Granulocyte % (Auto) 0.8 % Immature Granulocyte # (Auto) 0.06 0.00-0.02 K/uL Toxic Vacuolation 1+ Platelet Estimate SIGNIFIC DECREASED Sodium Level 130 136-145 mmol/L Potassium Level 4.7 3.5-5.1 mmol/L Chloride Level 100 98-107 mmol/L Carbon Dioxide Level 22 21-32 mmol/L Anion Gap 8.0 3-11 mmol/L Blood Urea Nitrogen 20 7-18 mg/dl Creatinine 0.87 0.60-1.20 mg/dl Est Creatinine Clear Calc Drug Dose 59.4 ml/min Estimated GFR () 78.2 Estimated GFR (Non- 67.5 BUN/Creatinine Ratio 22.4 10-20 Random Glucose 253 70-99 mg/dl Calcium Level 8.4 8.5-10.1 mg/dl Total Bilirubin 2.2 0.2-1 mg/dl Direct Bilirubin 1.0 0-0.2 mg/dl Aspartate Amino Transf (AST/SGOT) 166 15-37 U/L Alanine Aminotransferase (ALT/SGPT) 144 12-78 U/L Alkaline Phosphatase 140 45-117 U/L Total Creatine Kinase 142 26-192 U/L Creatine Kinase MB 1.1 0.5-3.6 ng/ml Creatine Kinase MB Ratio 0-3.0 Troponin I < 0.015 0-0.045 ng/ml Total Protein 6.1 6.4-8.2 gm/dl Albumin 2.0 3.4-5.0 gm/dl Lipase 92 73-393 U/L Prothrombin Time 13.5 9.0-12.0 SECONDS Prothromb Time International Ratio 1.3 0.9-1.1 Activated Partial Thromboplast Time 31.3 21.0-31.0 SECONDS Partial Thromboplastin Ratio 1.2 Urine Color DK YELLOW Urine Appearance CLEAR CLEAR Urine pH 5.5 4.5-7.5 Urine Specific Auberry 1.021 1.000-1.030 Urine Protein NEG NEG Urine Glucose (UA) NEG NEG Urine Ketones NEG NEG Urine Occult Blood NEG NEG Urine Nitrite NEG NEG Urine Bilirubin NEG NEG Urine Urobilinogen NEG NEG Urine Leukocyte Esterase NEG NEG Impression Assessment and Plan obs #[id number] Advanced Directives Existing Living Will: Yes Existing Power of Senior Compliance Officer: Yes VTE Prophylaxis VTE Risk Assessment Done? Y/N: Yes Risk Level: Moderate
[2017-05-16] MEDS: SPIRONOLACTONE 25 MG TAB PO SCH (22:18)
[2017-05-16 22:27] VITALS: BP 97/62; PULSE 93
--- NOTE | 2017-05-16 22:48 | HISTORY & PHYSICAL EXAMINATION ---
DATE OF ADMISSION: 05/16/2017 CHIEF COMPLAINT: Abdominal pain. SECONDARY COMPLAINT: Shortness of breath. HISTORY OF PRESENT ILLNESS: The patient is a very pleasant 72-year-old female who was sent over directly from her PCP, although sent to the ER for complaint of abdominal pain. She notes that she had a splenic artery embolization about 5 days ago at [facility], it was a same-day procedure, things apparently went well. She did take oxycodone on and has been constipated really since last Tuesday she thinks is about when her last bowel movement was. She has taken some [id number] stool softeners but it has not helped. She has not taken the oxycodone since last , has not had much pain. She does note she has had some shortness of breath since the procedure. No fevers, chills or sweats. A little bit of a cough that is nonproductive. It definitely hurts in her belly to cough. She is breathing shallower than normal. She does not, however, have any chest pain or pleuritic type chest pain. The pain is all in her abdomen. She is moving flatus, just has not had stool for at least 5 days. Her PCP saw her in the office and sent her over here for further evaluation and treatment. REVIEW OF SYSTEMS: Negative except for as above. 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 PAST SURGICAL HISTORY: Most recently splenic artery embolization last week at [facility] as an attempt to raise her platelet count and . MEDICATIONS: Include calcium, Lasix, omeprazole, spironolactone, oxycodone, nadolol and multivitamin. Her med rec was reviewed and appears correct. FAMILY HISTORY: Her sister had breast cancer. Although it is not a medical history, her son is getting this fall and is a physician who is finishing up time as a flight surgeon with the [employer] and is going to be doing residency. SOCIAL HISTORY: She was never a smoker, used to be a social drinker but has not at all in 25 years. PHYSICAL EXAMINATION: VITAL SIGNS: Temp 36.9, pulse 87, respiratory rate 22, blood pressure 129/70, 96% on room air. GENERAL: She is awake, alert, oriented x3, pleasant but appears fatigued and mildly uncomfortable. She is breathing a little bit heavily. HEENT: Normocephalic, atraumatic. Mucous membranes are moist. CARDIOVASCULAR: Regular. No rubs, murmurs or gallops. LUNGS: Clear, somewhat shallow, diminished air entry at the bases with rales noted. Good effort. No accessory muscle use. ABDOMEN: Soft but moderately distended. Diffuse tenderness, worse on the left side, but no guarding, rebound or rigidity. EXTREMITIES: Show no cyanosis or clubbing. She has maybe trace edema, it is equal bilaterally. No erythema. No cords. SKIN: Shows no rashes, no pallor or icterus. NEUROLOGIC: Shows cranial nerves II-XII to be grossly intact. Gross motor and sensory are intact. MUSCULOSKELETAL: Shows no gross lesions. MENTAL STATE: Good recent and remote recall. Normal mood and affect. Good judgment and insight. LABORATORIES AND DIAGNOSTICS: Her CBC shows a white count of 7.54, hemoglobin 11.4 with an MCV of 101 and platelet count of 28 which is similar to where she has been running. Complete metabolic panel with sodium 130, potassium 4.7, chloride 100, CO2 of 22, BUN 20, creatinine 0.87, calcium 8.4, glucose 253. Total bilirubin of 2.2 with a direct of 1.0, ALT 144, alkaline phosphatase 140, these two appear to be fairly similar to her prior ranges. CK total of 142 with an MB of 1.1, troponin of less than 0.015. Total protein 6.1, albumin 2, lipase 92. Urinalysis is dark yellow, specific gravity 1.021. PT of 13.5, PTT of 31.3. Chest and abdomen x-rays show central catheter in the right atrium, basilar atelectatic changes, fibrocalcific nodule on the lateral aspect of the right upper lung, unchanged, bowel pattern nonobstructive, air-fluid loops of small-bowel present suggesting mild nonobstructive ileus, degenerative changes throughout, and to my review, there is also a significant amount of stool. EKG is sinus without ischemic changes. ASSESSMENT AND PLAN: 1. Abdominal pain. This appears to be due to acute and fairly severe constipation. She has been given an enema in the ER. We will continue to treat with MiraLax to try to continue to clear her stool. She does not examine like she requires disimpaction at this point in time. Obviously, we will need to continue to follow, and likely after discharge, continue her on a bowel regimen. 2. Shortness of breath. She has a mild degree of relative hypoxia with pulse ox in the mid to low 90s on room air. She does appear to have shallow breathing, the atelectasis noted on chest x-ray and the rales that seem consistent with atelectasis on exam. I discussed with her once her stool is cleared and her abdomen is down, if she is still feeling as short of breath, obviously then we will need to work it up further including possibly a chest CT, but at this point in time the two likely relate together and she does appear stable. So we will follow her breathing after she has cleared her rather significant fecal retention. 3. Hyponatremia, probably relates to poor p.o. intake. We will follow up in the a.m. after p.o. intake. She has also been given some saline in the ER. 4. Thrombocytopenia. This is chronic. Splenic artery embolization was done to try to reduce splenic sequestration of her platelets. Hopefully, it is simply too soon to see any significant results from that. 5. Cholangiocarcinoma. Ongoing outpatient management. 6. Cirrhosis. Ongoing management with her home meds. 7. Deep venous thrombosis prophylaxis. Pharmacologic is contraindicated due to her thrombocytopenia. Mechanical prophylaxis is of dubious benefit and possible harm including skin breakdown. 8. Macrocytic anemia. Outpatient followup.
[2017-05-17 00:11] VITALS: BP 121/80; PULSE 88; TEMP 37.5; O2SAT 92
[2017-05-17 06:16] LABS: BUN/CREATININE RATIO 22.7 (10-20); CALCIUM 7.9 mg/dl (8.5-10.1); CREATININE 0.73 mg/dl (0.60-1.20); POTASSIUM 4.5 mmol/L (3.5-5.1)
[2017-05-17 07:30] VITALS: BP 106/68; PULSE 88; TEMP 37.4; O2SAT 92
[2017-05-17] MEDS ORDERED: CALCIUM 600MG + VIT D 400 IU TAB PO SCH (08:00)
[2017-05-17] MEDS: POLYETHYLENE (MIRALAX) 17 GM PACK PO SCH (08:03)
[2017-05-17] MEDS: SPIRONOLACTONE 25 MG TAB PO SCH (08:04)
[2017-05-17] MEDS ORDERED: CEROVITE ADV FORMULA TAB PO SCH (09:00)
[2017-05-17] MEDS ORDERED: PANTOprazole SOD 40 MG TAB PO SCH (09:00)
[2017-05-17] MEDS ORDERED: FUROSEMIDE 40 MG TAB PO SCH (09:00)
--- NOTE | 2017-05-17 11:19 | Hospitalist Progress Note ---
Hospitalist Progress Note Date of Service May 17, 2017. Subjective Pt evaluation today including: conversation w/ patient, physical exam, chart review, lab review, review of studies Pain: Abd pain LLQ Voiding: no voiding problems The patient was seen and examined this morning. Pt reports feeling uncomfortable in the left lower abdomen, she has not had a BM in 6 days now. A soap suds enema was completed last night, and she had drank some juice with miralax last evening and this morning. She is agreeable to a milk of molasses enema this morning. She denies any fever, sweats or chills. ROS: 6 point ROS reviewed and otherwise negative. Objective Vital Signs Date Time Temp Pulse Resp B/P (MAP) Pulse Ox O2 Delivery O2 Flow Rate FiO2 05/17/17 08:15 Room Air 05/17/17 07:30 37.4 88 20 106/68 (81) 92 Room Air 05/17/17 04:00 Room Air 05/17/17 00:11 37.5 88 20 121/80 (94) 92 Room Air 05/17/17 00:00 Room Air 05/16/17 22:27 93 97/62 (74) 05/16/17 21:06 37.1 81 20 97/62 (74) 94 Room Air 05/16/17 20:12 94 Room Air 05/16/17 20:10 85 100/66 92 05/16/17 18:06 89 112/53 93 Room Air 05/16/17 18:01 89 19 05/16/17 17:35 106/65 05/16/17 17:31 89 24 05/16/17 16:31 88 25 05/16/17 16:14 88 05/16/17 14:36 36.9 87 22 129/70 96 Room Air Physical Exam General Appearance: WD/WN, no apparent distress Eyes: PERRL, EOMI ENT: hearing grossly normal, pharynx normal Neck: supple, no JVD Respiratory/Chest: lungs clear, normal breath sounds, no respiratory distress, no accessory muscle use Cardiovascular: regular rate, rhythm, no JVD, no murmur Abdomen: normal bowel sounds, + distended, + tenderness (in LLQ with palpation) Extremities: non-tender, no calf tenderness, + pedal edema (2+ pitting, worse on the RLE compared to the LLE.) Neurologic/Psychiatric: alert, normal mood/affect, oriented x 3 Skin: normal color, warm/dry Laboratory Results Last 24 Hours Test 05/16/17 16:00 05/16/17 18:13 05/16/17 20:14 05/17/17 05:22 White Blood Count 7.54 K/uL Red Blood Count 3.33 M/uL Hemoglobin 11.4 g/dL Hematocrit 33.7 % Mean Corpuscular Volume 101.2 fL Mean Corpuscular Hemoglobin 34.2 pg Mean Corpuscular Hemoglobin Concent 33.8 g/dl Platelet Count 28 K/uL Mean Platelet Volume 11.6 fL Neutrophils (%) (Auto) 63.5 % Lymphocytes (%) (Auto) 13.3 % Monocytes (%) (Auto) 21.8 % Eosinophils (%) (Auto) 0.5 % Basophils (%) (Auto) 0.1 % Neutrophils # (Auto) 4.79 K/uL Lymphocytes # (Auto) 1.00 K/uL Monocytes # (Auto) 1.64 K/uL Eosinophils # (Auto) 0.04 K/uL Basophils # (Auto) 0.01 K/uL RDW Standard Deviation 53.5 fL RDW Coefficient of Variation 14.5 % Immature Granulocyte % (Auto) 0.8 % Immature Granulocyte # (Auto) 0.06 K/uL Toxic Vacuolation 1+ Platelet Estimate SIGNIFIC DECREASED Sodium Level 130 mmol/L 134 mmol/L Potassium Level mmol/L 4.7 mmol/L 4.5 mmol/L Chloride Level 100 mmol/L 103 mmol/L Carbon Dioxide Level 22 mmol/L 26 mmol/L Anion Gap 8.0 mmol/L 5.0 mmol/L Blood Urea Nitrogen 20 mg/dl 17 mg/dl Creatinine 0.87 mg/dl 0.73 mg/dl Est Creatinine Clear Calc Drug Dose 59.4 ml/min 70.8 ml/min Estimated GFR () 78.2 96.7 Estimated GFR (Non- 67.5 83.4 BUN/Creatinine Ratio 22.4 22.7 Random Glucose 253 mg/dl 158 mg/dl Calcium Level 8.4 mg/dl 7.9 mg/dl Total Bilirubin 2.2 mg/dl Direct Bilirubin mg/dl 1.0 mg/dl Aspartate Amino Transf (AST/SGOT) U/L 166 U/L Alanine Aminotransferase (ALT/SGPT) 144 U/L Alkaline Phosphatase 140 U/L Total Creatine Kinase U/L 142 U/L Creatine Kinase MB 1.1 ng/ml Creatine Kinase MB Ratio Troponin I < 0.015 ng/ml Total Protein 6.1 gm/dl Albumin 2.0 gm/dl Lipase 92 U/L Prothrombin Time 13.5 SECONDS Prothromb Time International Ratio 1.3 Activated Partial Thromboplast Time 31.3 SECONDS Partial Thromboplastin Ratio 1.2 Urine Color DK YELLOW Urine Appearance CLEAR Urine pH 5.5 Urine Specific [place] 1.021 Urine Protein NEG Urine Glucose (UA) NEG Urine Ketones NEG Urine Occult Blood NEG Urine Nitrite NEG Urine Bilirubin NEG Urine Urobilinogen NEG Urine Leukocyte Esterase NEG Assessment and Plan 72 yo F with Hepatitis C 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 Murphy as an oupatient - S/p chemotherapy with gemcitabine and cisplatin from November - January 2016 but was discontinued due to myelodepression. - If thrombocytopenia improves then can reconsider chemotherapy - May benefit from palliative consultation in the near future Constipation: - largely the patients complaint at this time - Soap suds enema and miralax Po has not worked. - will try milk of molasses enema now- administer after lunch. - Encourage bowel regimen when she leaves the hospital. Shortness of breath. - mild degree of relative hypoxia with pulse ox in the mid to low 90s on room air at time of admission - sats are adequate on room air today. - CXR completed showing atelectasis, incentive spirometry ordered. Edema - cont lasix 40 mg PO daily, nadolol 20 mg QPM, spironolactone 50 mg BID Hyponatremia - relates to poor p.o. intake. - received saline in the ER. Thrombocytopenia. - this is chronic - Splenic artery embolization was done to try to reduce splenic sequestration of her platelets last week. Macrocytic anemia - Outpatient followup. Osteopenia - Cont calcium and Vit D supplementation DVT ppx: Pharmacologic is contraindicated due to her thrombocytopenia. Mechanical prophylaxis is of dubious benefit and possible harm including skin breakdown. CODE STATUS: FULL CODE Disposition: From home, lives with .
[2017-05-17 11:28] VITALS: BP 131/79; PULSE 114; TEMP 36.6; O2SAT 93
[2017-05-17] MEDS ORDERED: MILK AND MOLASSES ENEMA PR ONE (11:45)
[2017-05-17] MEDS ORDERED: MRLP17X PO (14:36)
--- NOTE | 2017-05-17 14:42 | Discharge Instructions ---
Discharge Instructions Date of Service May 17, 2017. Admission Reason for Admission: Abdominal Pain Discharge Discharge Diagnosis / Problem: Abdominal pain, constipation Discharge Goals Goal(s): Decrease discomfort, Improve function, Increase independence, Improve disease control Activity Recommendations Activity Limitations: resume your previous activity Lifting Limitations: no more than 25 pounds, gradually increase as tolerated Exercise/Sports Limitations: rest today, gradually increase as tolerated May Resume Sexual Activity: when tolerated Shower/Bathe: no limitations Driving or Machine Use: After being cleared by your PCP . Instructions / Follow-Up Instructions / Follow-Up You were admitted to [facility] with abdominal pain and diagnosed with constipation. During your stay here you were treated with supportive care and bowel regimen including a milk of molasses enema which moved your bowels. Medications: You should take miralax as needed to relieve constipation - use if you have not had a bowel movement within 2 days. You can also use a stool softener, like dulcolax tablets to help to soften your bowels. Both of these medications can be found over the counter. Appointments: Follow up with your Primary Care Provider within 1 week, Dr. Lopez. An appointment has been requested for you. Follow up with [facility] as already scheduled since your splenic artery thromboembolism. Current Hospital Diet Patient's current hospital diet: Regular Diet Discharge Diet Recommended Diet: Regular Diet Pending Studies Studies pending at discharge: no Medical Emergencies . Who to Call and When: Medical Emergencies: If at any time you feel your situation is an emergency, please call 911 immediately. . Non-Emergent Contact Non-Emergency issues call your: Primary Care Provider Call Non-Emergent contact if: you have a fever, your pain is not controlled, your pain is worsening, your pain is unusual for you, your pain is concerning you, you have any medication questions other concerns with your health. Call 911 or go directly to the Emergency Department if you experience any of the following: Chest pain, chest tightness, shortness of breath, abdominal pain , lightheadedness, dizziness, gastrointestinal bleeding, or have any other concerns regarding your health. . Past History Medical & Surgical History: (1) Abdominal pain (2) Constipation (3) Cholangiocarcinoma (4) Hepatitis C . "Provider Documentation" section prepared by Mily Rajput. . VTE Core Measure Inpt VTE Proph given/why not?: Contraindicated
--- NOTE | 2017-05-17 14:48 | Discharge Summary ---
Discharge Summary Date of Service May 17, 2017. 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 Macrocytic anemia Osteopenia Immunizations: Have You Had Influenza Vaccine: Yes Influenza Vaccine Date: May 05, 2015 History of Tetanus Vaccine?: Unknown History of Pneumococcal: Unknown History of Hepatitis B Vaccine: Unknown Procedures: ABDOMEN 2VIEW W/PA CHEST RTN 05/16/17 FINDINGS: Central catheter in the right atrium. A basilar atelectatic change. Small fibrocalcific nodule lateral aspect right upper lung unchanged. Bowel pattern is nonobstructive. Several air-filled loops of small bowel present suggesting a mild nonobstructive ileus. There are degenerative changes of the osseous structures throughout. IMPRESSION: 1. Mild bibasilar atelectatic change. 2. Mild generalized nonobstructive ileus. Medication Reconciliation New Medications: Polyethylene (Miralax) 17 Gm Pow 17 GM PO DAILY PRN for Constipation for 30 Days, #30 DOSE Use if no bowel movement in 2 days Continued Medications: Calcium/Vitamin D (Os-Alexis 500 Plus D) Tab 1 TAB PO BID, TAB Codeine Sulfate (Codeine) 15 Mg Tab 15 MG PO Q4H PRN for Pain, TAB Furosemide (Lasix) 40 Mg Tab 40 MG PO QAM, TAB Multivitamins/Minerals (Mvi With Minerals) Tab 1 TAB PO QAM, TAB Nadolol (Corgard) 20 Mg Tab 20 MG PO QPM Omeprazole (Prilosec) 20 Mg Capcr 20 MG PO QAM, CAP Oxycodone HCl (Oxycodone HCl) 5 Mg Tab 5 MG PO Q4 PRN for Pain Spironolactone (Aldactone) 50 Mg Tab 50 MG PO BID, TAB Discharge Exam Subjective Pt evaluation today including: conversation w/ patient, physical exam, chart review, lab review, review of studies Pain: Abd pain LLQ Voiding: no voiding problems The patient was seen and examined this morning. Pt reports feeling uncomfortable in the left lower abdomen, she has not had a BM in 6 days now. A soap suds enema was completed last night, and she had drank some juice with miralax last evening and this morning. She is agreeable to a milk of molasses enema this morning. She denies any fever, sweats or chills. ROS: 6 point ROS reviewed and otherwise negative. Objective Vital Signs Date Time Temp Pulse Resp B/P (MAP) Pulse Ox O2 Delivery O2 Flow Rate FiO2 05/17/17 08:15 Room Air 05/17/17 07:30 37.4 88 20 106/68 (81) 92 Room Air 05/17/17 04:00 Room Air 05/17/17 00:11 37.5 88 20 121/80 (94) 92 Room Air 05/17/17 00:00 Room Air 05/16/17 22:27 93 97/62 (74) 05/16/17 21:06 37.1 81 20 97/62 (74) 94 Room Air 05/16/17 20:12 94 Room Air 05/16/17 20:10 85 100/66 92 05/16/17 18:06 89 112/53 93 Room Air 05/16/17 18:01 89 19 05/16/17 17:35 106/65 05/16/17 17:31 89 24 05/16/17 16:31 88 25 05/16/17 16:14 88 05/16/17 14:36 36.9 87 22 129/70 96 Room Air Physical Exam General Appearance: WD/WN, no apparent distress Eyes: PERRL, EOMI ENT: hearing grossly normal, pharynx normal Neck: supple, no JVD Respiratory/Chest: lungs clear, normal breath sounds, no respiratory distress, no accessory muscle use Cardiovascular: regular rate, rhythm, no JVD, no murmur Abdomen: normal bowel sounds, + distended, + tenderness (in LLQ with palpation) Extremities: non-tender, no calf tenderness, + pedal edema (2+ pitting, worse on the RLE compared to the LLE.) Neurologic/Psychiatric: alert, normal mood/affect, oriented x 3 Skin: normal color, warm/dry Hospital Course H&P per Dr. Joselito DO. HISTORY OF PRESENT ILLNESS: The patient is a very pleasant 72-year-old female who was sent over directly from her PCP, although sent to the ER for complaint of abdominal pain. She notes that she had a splenic artery embolization about 5 days ago at [facility], it was a same-day procedure, things apparently went well. She did take oxycodone on and has been constipated really since last Tuesday she thinks is about when her last bowel movement was. She has taken some [id number] stool softeners but it has not helped. She has not taken the oxycodone since last , has not had much pain. She does note she has had some shortness of breath since the procedure. No fevers, chills or sweats. A little bit of a cough that is nonproductive. It definitely hurts in her belly to cough. She is breathing shallower than normal. She does not, however, have any chest pain or pleuritic type chest pain. The pain is all in her abdomen. She is moving flatus, just has not had stool for at least 5 days. Her PCP saw her in the office and sent her over here for further evaluation and treatment. PHYSICAL EXAMINATION: VITAL SIGNS: Temp 36.9, pulse 87, respiratory rate 22, blood pressure 129/70, 96% on room air. GENERAL: She is awake, alert, oriented x3, pleasant but appears fatigued and mildly uncomfortable. She is breathing a little bit heavily. HEENT: Normocephalic, atraumatic. Mucous membranes are moist. CARDIOVASCULAR: Regular. No rubs, murmurs or gallops. LUNGS: Clear, somewhat shallow, diminished air entry at the bases with rales noted. Good effort. No accessory muscle use. ABDOMEN: Soft but moderately distended. Diffuse tenderness, worse on the left side, but no guarding, rebound or rigidity. EXTREMITIES: Show no cyanosis or clubbing. She has maybe trace edema, it is equal bilaterally. No erythema. No cords. SKIN: Shows no rashes, no pallor or icterus. NEUROLOGIC: Shows cranial nerves II-XII to be grossly intact. Gross motor and sensory are intact. MUSCULOSKELETAL: Shows no gross lesions. MENTAL STATE: Good recent and remote recall. Normal mood and affect. Good judgment and insight. 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 Galeana as an outpatient - S/p chemotherapy with gemcitabine and cisplatin from November - January 2016 but was discontinued due to myelodepression. - If thrombocytopenia improves then can reconsider chemotherapy - May benefit from palliative consultation in the near future Constipation: - largely the patients complaint at this time- resolved with milk of molasses enema - pt symptoms of abdominal pain largely resolved. She reports mild left abd pain of a 1/10 at this time and would like to go home. - Should continue miralax as an outpatient if no BM in 2 days. Pt was also encouraged to use a stool softener if needed - both available over the counter. Shortness of breath. - mild degree of relative hypoxia with pulse ox in the mid to low 90s on room air at time of admission - sats are adequate on room air today. - CXR completed showing atelectasis, incentive spirometry ordered. Edema - cont lasix 40 mg PO daily, nadolol 20 mg QPM, spironolactone 50 mg BID Hyponatremia - relates to poor p.o. intake - received saline in the ER Thrombocytopenia - this is chronic - Splenic artery embolization was done to try to reduce splenic sequestration of her platelets last week. Macrocytic anemia - Outpatient followup Osteopenia - Cont calcium and Vit D supplementation DVT ppx: Pharmacologic is contraindicated due to her thrombocytopenia. Mechanical prophylaxis is of dubious benefit and possible harm including skin breakdown. CODE STATUS: FULL CODE Disposition: From home, lives with , discharge to home today. Total Time Spent: Greater than 30 minutes This includes examination of the patient, discharge planning, medication reconciliation, and communication with other providers. Discharge Instructions Please refer to the electronic Patient Visit Report (Discharge Instructions) for additional information. Follow-Up Follow up with your Primary Care Provider within 1 week, Dr. Lopez. Follow up with nadege s/p splenic artery thromboembolism as scheduled. Additional Copies To Sheng Lopez M.D.
[2017-05-17 14:52] VITALS: BP 131/79; PULSE 114; TEMP 36.6; O2SAT 93
[2017-05-20] MEDS ORDERED: POLY335019 PO (18:20)
[2017-05-23] MEDS ORDERED: ULT50X PO (09:49)
[2017-05-23] MEDS ORDERED: CPR500 PO (09:49)
[2017-05-23] MEDS ORDERED: CLC100 PO (09:49)
[2017-05-23] MEDS ORDERED: POLY1POW2 PO (09:49)
== END 2017-05-17 15:50 | disposition home or self-care (01) ==
LOC: C.EDB 14:32 → ENRESERV 18:58 → EDBEDREQSVC 18:59 → C.MED 19:02
PROVIDERS: ADMIT Family Medicine; ATTEND Internal Medicine
DX: R10.32 Left lower quadrant pain (principal); K59.00 Constipation, unspecified; R06.02 Shortness of breath; C22.1 Intrahepatic bile duct carcinoma; B19.20 Unspecified viral hepatitis C without hepatic coma; E87.1 Hypo-osmolality and hyponatremia; Z80.3 Family history of malignant neoplasm of breast; D69.6 Thrombocytopenia, unspecified; Z79.899 Other long term (current) drug therapy

== ENCOUNTER 2017-05-26 18:20 | Inpatient (IN) | payer BC, OTHER ==
[~2017-05-26] VITALS: Ht 157.5 cm; Wt 81.1 kg
[~2017-05-26 18:20] MED LIST changes: +CLC100 PO; +CPR500 PO; +CRG/20 PO; -OMEP40CA PO; +OXYC-609 PO; +POLY1POW2 PO; +PRLSR20 PO; +ULT50X PO
--- NOTE | 2017-05-26 19:51 | DIAGNOSTIC IMAGING REPORT ---
CHEST ONE VIEW PORTABLE CLINICAL HISTORY: 72 years-old Female presenting with ABDOMINAL PAIN/GI, bloating, shortness of breath. TECHNIQUE: Portable upright AP view of the chest was obtained. COMPARISON: 05/16/2017. FINDINGS: Left subclavian Mediport terminates in the superior cavoatrial junction. Low lung volumes with hypoventilatory changes as on prior exam. Vague bibasilar opacities, unchanged. No new focal infiltrate. No large pleural effusion or pneumothorax. Degenerative changes of the thoracic spine. Upper abdomen normal. IMPRESSION: 1. Low lung volumes with hypoventilatory changes and bibasilar atelectasis, unchanged. No new focal infiltrate. Electronically signed by: Laurent Thornton M.D. 05/26/2017 7:50 PM Dictated Date/Time: 05/26/2017 7:48 PM
[2017-05-26 20:04] LABS: HEMATOCRIT 32.8 % (37-47); MEAN CELL VOLUME 101.9 fL (80-100); MEAN CORPUSCULAR HEMOGLOBIN 34.5 pg (25-34); MEAN CORPUSCULAR HGB CONC 33.8 g/dl (32-36); MEAN PLATELET VOLUME 9.8 fL (7.4-10.4); PLATELET COUNT 132 K/uL (130-400); RED BLOOD COUNT 3.22 M/uL (4.2-5.4); WHITE BLOOD COUNT 13.58 K/uL (4.8-10.8)
[2017-05-26 20:14] LABS: INR 1.3 (0.9-1.1); PARTIAL THROMBOPLASTIN RATIO 1.2; PROTHROMBIN TIME (PATIENT) 14.6 SECONDS (9.0-12.0)
[2017-05-26 20:19] VITALS: Ht 157.5 cm; Wt 81.1 kg
[2017-05-26 20:29] LABS: BASO ABS # 0.12 K/uL (0-0.2); BASOPHIL % 0.9 %; COMPLETE YES; LYMPH ABS # 0.48 K/uL (1.2-3.4); LYMPHOCYTE % 3.5 %; MYELOCYTE % 1.8 %; NEUTROPHILS % 81.4 %
[2017-05-26 20:32] LABS: BUN/CREATININE RATIO 24.2 (10-20); CALCIUM 8.3 mg/dl (8.5-10.1); CREATININE 0.79 mg/dl (0.60-1.20); POTASSIUM 4.5 mmol/L (3.5-5.1)
--- NOTE | 2017-05-26 20:38 | EMERGENCY ROOM VISIT NOTE ---
History Report prepared by Christian: Nicholas Lagos Under the Supervision of: Dr. Shaheen Choudhury D.O. First contact with patient: 18:55 Chief Complaint: SHORTNESS OF BREATH Stated Complaint: BLOATING, SHORTNESS OF BREATH History of Present Illness The patient is a 72 year old female who presents to the Emergency Room with complaints of shortness of breath that began 2 weeks ago. She follows up with Dr. Lopez who referred her to the ER for her persistent and worsening symptoms. She has a history of abdominal ascites, cholangiole carcinoma, and cirrhosis. She has had increased abdominal bloating, shortness of breath, abdominal discomfort, and leg swelling as well. She denies any fevers or other abnormal symptoms. She states that the redness on her old abdominal incision is not new. Source of History: patient Onset: 2 weeks ago Position: other (Respiratory system) Symptom Intensity: moderate Quality: other (Shortness of breath) Timing: worsening Associated Symptoms: + abdominal pain (discomfort), No fevers Note: She is experiencing abdominal distention and leg swelling. She denies any other abnormal symptoms. Review of Systems See HPI for pertinent positives & negatives. A total of 10 systems reviewed and were otherwise negative. Past Medical & Surgical Medical Problems: (1) Abdominal pain (2) Ascending cholangitis (3) Hepatitis C (4) Jaundice Family History FHx: cancer Social History Smoking Status: Former Smoker Drug Use: none Marital Status: Housing Status: lives with family Occupation Status: employed Current/Historical Medications Scheduled Calcium/Vitamin D (Os-Alexis 500 Plus D), 1 TAB PO BID Docusate Sodium (Docusate Sodium), 100 MG PO BID Furosemide (Lasix), 40 MG PO QAM Multivitamins/Minerals (Mvi With Minerals), 1 TAB PO QAM Nadolol (Corgard), 20 MG PO QPM Omeprazole (Prilosec), 20 MG PO QAM Polyethylene Glycol 3350 (Bulk (Polyethylene Glycol 3350), 17 GM PO BID Spironolactone (Aldactone), 50 MG PO BID Scheduled PRN Codeine Sulfate (Codeine), 15 MG PO Q4H PRN for Pain Oxycodone HCl (Oxycodone HCl), 5 MG PO Q4 PRN for Pain Tramadol HCl (Tramadol HCl), 50 MG PO Q4H PRN for Pain Allergies Coded Allergies: Clam (Verified Allergy, Severe, ANAPHYLAXIS, 05/26/17) Iodinated Diagnostic Agents (Unverified Allergy, Mild, SNEEZING, ITCHY NOSE, 05/26/17) Physical Exam Vital Signs Date Time Temp Pulse Resp B/P (MAP) Pulse Ox O2 Delivery O2 Flow Rate FiO2 05/26/17 20:19 Room Air 05/26/17 19:50 92 05/26/17 19:49 96 Room Air 05/26/17 19:44 105/55 05/26/17 19:30 94 Room Air 05/26/17 18:32 37.2 98 23 102/68 95 Room Air Physical Exam CONSTITUTIONAL/VITAL SIGNS: Reviewed / noted above. GENERAL: Non-toxic in appearance. INTEGUMENTARY: Warm, dry, and [place]. HEAD: Normocephalic. EYES: without scleral icterus or trauma. ENT/OROPHARYNX: clear and moist. LYMPHADENOPATHY/NECK: Is supple without lymphadenopathy or meningismus. RESPIRATORY: Lungs clear and equal. CARDIOVASCULAR: Regular rate and rhythm. GI/ABDOMEN: Soft and nontender. Moderate abdominal distention. Mild erythema in the mid abdominal region that the patient reports as chronic and not new. No organomegaly or pulsatile mass. No rebound or guarding. Normal bowel sounds. EXTREMITIES: Warm and well perfused. BACK: No CVA tenderness. NEUROLOGICAL: Intact without focal deficits. PSYCHIATRIC: normal affect. MUSCULOSKELETAL: Normally developed with good muscle tone. Medical Decision & Procedures ER Provider Diagnostic Interpretation: Radiology results as stated below per my review and radiologist interpretation: CHEST ONE VIEW PORTABLE CLINICAL HISTORY: 72 years-old Female presenting with ABDOMINAL PAIN/GI, bloating, shortness of breath. TECHNIQUE: Portable upright AP view of the chest was obtained. COMPARISON: 05/16/2017. FINDINGS: Left subclavian Mediport terminates in the superior cavoatrial junction. Low lung volumes with hypoventilatory changes as on prior exam. Vague bibasilar opacities, unchanged. No new focal infiltrate. No large pleural effusion or pneumothorax. Degenerative changes of the thoracic spine. Upper abdomen normal. IMPRESSION: 1. Low lung volumes with hypoventilatory changes and bibasilar atelectasis, unchanged. No new focal infiltrate. Electronically signed by: Laurent Thornton M.D. 05/26/2017 7:50 PM Dictated Date/Time: 05/26/2017 7:48 PM Laboratory Results 05/26/17 19:50 Red Blood Count 3.22, Mean Corpuscular Volume 101.9, Mean Corpuscular Hemoglobin 34.5, Mean Corpuscular Hemoglobin Concent 33.8, Mean Platelet Volume 9.8 05/26/17 19:50 Test 05/26/17 19:50 White Blood Count 13.58 K/uL (4.8-10.8) Red Blood Count 3.22 M/uL (4.2-5.4) Hemoglobin 11.1 g/dL (12.0-16.0) Hematocrit 32.8 % (37-47) Mean Corpuscular Volume 101.9 fL (80-100) Mean Corpuscular Hemoglobin 34.5 pg (25-34) Mean Corpuscular Hemoglobin Concent 33.8 g/dl (32-36) Platelet Count 132 K/uL (130-400) Mean Platelet Volume 9.8 fL (7.4-10.4) RDW Standard Deviation 53.4 fL (36.4-46.3) RDW Coefficient of Variation 14.5 % (11.5-14.5) Neutrophils % (Manual) 81.4 % Lymphocytes % (Manual) 3.5 % Monocytes % (Manual) 12.4 % Basophils % (Manual) 0.9 % Myelocytes % 1.8 % Neutrophils # (Manual) 11.05 K/uL (1.4-6.5) Total Absolute Neutrophils 11.05 K/uL (1.4-6.5) Lymphocytes # (Manual) 0.48 K/uL (1.2-3.4) Total Absolute Lymphocytes 0.48 K/uL (1.2-3.4) Monocytes # (Manual) 1.68 K/uL (0.11-0.59) Basophils # (Manual) 0.12 K/uL (0-0.2) Myelocytes # 0.24 K/uL (0-0) Prothrombin Time 14.6 SECONDS (9.0-12.0) Prothromb Time International Ratio 1.3 (0.9-1.1) Activated Partial Thromboplast Time 32.4 SECONDS (21.0-31.0) Partial Thromboplastin Ratio 1.2 Anion Gap 5.0 mmol/L (3-11) Est Creatinine Clear Calc Drug Dose 66.3 ml/min Estimated GFR () 87.9 Estimated GFR (Non- 75.8 BUN/Creatinine Ratio 24.2 (10-20) Calcium Level 8.3 mg/dl (8.5-10.1) Total Bilirubin 1.8 mg/dl (0.2-1) Direct Bilirubin 1.1 mg/dl (0-0.2) Aspartate Amino Transf (AST/SGOT) 172 U/L (15-37) Alanine Aminotransferase (ALT/SGPT) 94 U/L (12-78) Alkaline Phosphatase 152 U/L (45-117) Total Protein 5.7 gm/dl (6.4-8.2) Albumin 1.8 gm/dl (3.4-5.0) Lipase 186 U/L (73-393) Laboratory results as stated above per my review. ED Course 1854: Previous medical records were reviewed. The patient was evaluated in room B9. A complete history and physical examination was performed. 1907: I performed a bedside ultrasound at this time. It showed abdominal ascites. 1924: On reevaluation, the patient is resting. I discussed the results and findings with her. She verbalized agreement of the treatment plan. I spoke with Dr. Ruvalcaba of the [facility]. The patient will be evaluated for further management and care. Medical Decision Differential considered: pancreatitis, hepatitis, or acute cholecystitis, AAA, UTI, pyelonephritis, kidney stones, appendicitis, diverticulitis, shingles, bowel obstruction mesenteric ischemia, intussusception, hernia, ovarian torsion , ruptured ovarian cyst. This is a 72-year-old female who presents to the ED with a chief complaint of bloating abdominal discomfort and shortness of breath for the past couple of weeks. The patient had a previous CT scan that showed a portal vein thrombosis. The patient is known to have ascites due to liver issues as well as some cancer issues. The patient was sent to the emergency department by Dr. Lopez for admission, for treatment for the portal vein thrombosis as well as for the patient's ascites. Laboratory studies reveal some abnormalities with regards to the liver function test. There is mild anemia. Chest x-ray did not show acute process. The patient was told the results. I spoke with the hospitalist as did Dr. Lopez. The patient will be seen and admitted. Medication Reconcilliation Current Medication List: was personally reviewed by me Blood Pressure Screening Patient's blood pressure: Normal blood pressure Blood pressure disposition: Did not require urgent referral Consults Time Called: 1919 Consulting Physician: Dr. Peg JIANG Returned Call: 1924 Discussed the patient's case. The patient will be evaluated for further treatment and disposition. Impression Primary Impression: Portal vein thrombosis Additional Impressions: Ascites Abdominal discomfort Scribe Attestation The scribe's documentation has been prepared under my direction and personally reviewed by me in its entirety. I confirm that the note above accurately reflects all work, treatment, procedures, and medical decision making performed by me. Departure Information Dispostion Being Evaluated By Hospitalist Referrals No Doctor, Assigned (PCP) Patient Instructions My [facility] Problem Qualifiers
[2017-05-26] MEDS ORDERED: ONDANSETRON INJ 2 MG/ML 2 ML VIAL IV PRN (20:45)
[2017-05-26] MEDS: POLYETHYLENE (MIRALAX) 17 GM PACK PO SCH (21:00)
[2017-05-26] MEDS ORDERED: PNEUMOCOCCAL POLYSACCHARIDES 25 MCG/0.5 ML VIAL/SYR IM. ONE (21:15)
[2017-05-26] MEDS ORDERED: IV FLUIDS COMPLETED PRN (21:15)
[2017-05-26] MEDS ORDERED: PNEUMOCOCCAL ADMINISTRATION CHARGE ONE (21:15)
--- NOTE | 2017-05-26 21:30 | History and Physical ---
History & Physical Date & Time of Service: May 26, 2017 at 21:30 Chief Complaint: Bloating, Shortness Of Breath Primary Care Physician: Sheng Lopez M.D. History of Present Illness Source: patient, clinic records, hospital records Mrs. Crespo is a 72 year old female with a metastatic cholangiocarcinoma, hepatitis C and liver cirrhosis who presents to the ER with worsening shortness of breath and abdominal distension. This has been a slow progression since he splenic embolization. She was seen by her PCP today and advised to come to the ER for consideration of therapeutic paracentesis. It was also noted on her recent CT A/P that she had a portal vein thrombosis however she had not been placed on anticoagulation. She has a history of chronic hepatitis C treated with interferon in the past. Diagnosed with cholangiocarcinoma in 2015 previously treated with chemotherapy ( November-January 2016) but discontinued due to pancytopenia. Treated with radiation (Feb -Apr 2016). Now has metastatic disease to lungs and peritoneum. She has known malignant ascites. She underwent splenic embolization on 05/12/17 at [facility] [place]. She was admitted to [facility] with abdominal pain twice recently (discharged on 05/17/17 and 05/20/17) on both occasions her pain improved with laxatives and enema. She was also diagnosed with a UTI treated with ciprofloxacin. CT A/P showed progressive pulmonary metastatic disease, cirrhotic liver with increasing ascites and upper abdominal varices, portal vein thrombus, splenomegaly with extensive splenic infarction, mild retroperitoneal adenopathy and slight peritoneal nodularity, cannot exclude peritoneal tumor implants. She denies any chest pain, constipation, diarrhea, nausea, vomiting, fevers or chills. Past Medical/Surgical History Cholangiocarcinoma Hep C GERD Liver cirrhosis Osteopenia Hypersplenism Family History FHx: cancer Social History Smoking Status: Former Smoker Drug Use: none Marital Status: Occupational Status: employed Immunizations History of Influenza Vaccine: Yes Influenza Vaccine Date: May 05, 2015 History of Tetanus Vaccine?: Yes History of Pneumococcal: Unknown History of Hepatitis B Vaccine: Unknown Multi-Drug Resistant Organisms History of MDRO: No Allergies Coded Allergies: Clam (Verified Allergy, Severe, ANAPHYLAXIS, 05/26/17) Iodinated Diagnostic Agents (Verified Allergy, Mild, SNEEZING, ITCHY NOSE , 05/26/17) Home Medications Scheduled Calcium/Vitamin D (Os-Alexis 500 Plus D), 1 TAB PO BID Docusate Sodium (Docusate Sodium), 100 MG PO BID Furosemide (Lasix), 40 MG PO QAM Multivitamins/Minerals (Mvi With Minerals), 1 TAB PO QAM Nadolol (Corgard), 20 MG PO QPM Omeprazole (Prilosec), 20 MG PO QAM Polyethylene Glycol 3350 (Bulk (Polyethylene Glycol 3350), 17 GM PO BID Spironolactone (Aldactone), 50 MG PO BID Scheduled PRN Codeine Sulfate (Codeine), 15 MG PO Q4H PRN for Pain Oxycodone HCl (Oxycodone HCl), 5 MG PO Q4 PRN for Pain Tramadol HCl (Tramadol HCl), 50 MG PO Q4H PRN for Pain Review of Systems Constitutional: No fever, No chills Eyes: No worsening of vision ENT: No hearing loss Respiratory: + shortness of breath, + dyspnea at rest, No cough, No sputum, No wheezing Cardiovascular: No chest pain Abdomen: + pain, No nausea, No vomiting, No diarrhea, No constipation, No GI bleeding Musculoskeletal: No joint pain, No muscle pain Genitourinary - Female: No dysuria, No urinary frequency, No urinary urgency, No urinary incontinence Neurologic: No memory loss, No numbness/tingling, No vertigo, No balance problems Endocrine: No fatigue Hematologic / Lymphatic: No abnormal bleeding/bruising Integumentary: No rash, No itch Physical Exam Vital Signs Date Time Temp Pulse Resp B/P (MAP) Pulse Ox O2 Delivery O2 Flow Rate FiO2 05/26/17 21:19 100 16 92 05/26/17 21:01 122/73 05/26/17 20:49 84 21 05/26/17 20:19 Room Air 05/26/17 20:19 108 22 05/26/17 20:17 103/59 05/26/17 19:50 92 05/26/17 19:49 96 Room Air 05/26/17 19:49 99 18 95 05/26/17 19:44 105/55 05/26/17 19:30 94 Room Air 05/26/17 18:32 37.2 98 23 102/68 95 Room Air General Appearance: WD/WN, + mild distress (respiratory) Eyes: normal inspection Neck: supple, no JVD, trachea midline Respiratory/Chest: no accessory muscle use, + respiratory distress (mild), + decreased breath sounds (bilateral bases) Cardiovascular: regular rate, rhythm, no murmur, normal peripheral pulses Abdomen/GI: normal bowel sounds, + tenderness (mild generalized, no rebound or guarding), + distended (firm) Extremities/Musculoskelatal: + pedal edema (3+ generalized anasarca) Neurologic/Psych: consulting property manager II-XII nml as tested (no facial droop), no motor/sensory deficits (grossly intact), alert, oriented x 3 Diagnostics Laboratory Results Results Past 24 Hours Test 05/26/17 19:50 Range/Units White Blood Count 13.58 4.8-10.8 K/uL Red Blood Count 3.22 4.2-5.4 M/uL Hemoglobin 11.1 12.0-16.0 g/dL Hematocrit 32.8 37-47 % Mean Corpuscular Volume 101.9 80-100 fL Mean Corpuscular Hemoglobin 34.5 25-34 pg Mean Corpuscular Hemoglobin Concent 33.8 32-36 g/dl Platelet Count 132 130-400 K/uL Mean Platelet Volume 9.8 7.4-10.4 fL RDW Standard Deviation 53.4 36.4-46.3 fL RDW Coefficient of Variation 14.5 11.5-14.5 % Neutrophils % (Manual) 81.4 % Lymphocytes % (Manual) 3.5 % Monocytes % (Manual) 12.4 % Basophils % (Manual) 0.9 % Myelocytes % 1.8 % Neutrophils # (Manual) 11.05 1.4-6.5 K/uL Total Absolute Neutrophils 11.05 1.4-6.5 K/uL Lymphocytes # (Manual) 0.48 1.2-3.4 K/uL Total Absolute Lymphocytes 0.48 1.2-3.4 K/uL Monocytes # (Manual) 1.68 0.11-0.59 K/uL Basophils # (Manual) 0.12 0-0.2 K/uL Myelocytes # 0.24 0-0 K/uL Prothrombin Time 14.6 9.0-12.0 SECONDS Prothromb Time International Ratio 1.3 0.9-1.1 Activated Partial Thromboplast Time 32.4 21.0-31.0 SECONDS Partial Thromboplastin Ratio 1.2 Sodium Level 131 136-145 mmol/L Potassium Level 4.5 3.5-5.1 mmol/L Chloride Level 99 98-107 mmol/L Carbon Dioxide Level 27 21-32 mmol/L Anion Gap 5.0 3-11 mmol/L Blood Urea Nitrogen 19 7-18 mg/dl Creatinine 0.79 0.60-1.20 mg/dl Est Creatinine Clear Calc Drug Dose 66.3 ml/min Estimated GFR () 87.9 Estimated GFR (Non- 75.8 BUN/Creatinine Ratio 24.2 10-20 Random Glucose 130 70-99 mg/dl Calcium Level 8.3 8.5-10.1 mg/dl Total Bilirubin 1.8 0.2-1 mg/dl Direct Bilirubin 1.1 0-0.2 mg/dl Aspartate Amino Transf (AST/SGOT) 172 15-37 U/L Alanine Aminotransferase (ALT/SGPT) 94 12-78 U/L Alkaline Phosphatase 152 45-117 U/L Total Protein 5.7 6.4-8.2 gm/dl Albumin 1.8 3.4-5.0 gm/dl Lipase 186 73-393 U/L Diagnostic Radiology CHEST ONE VIEW PORTABLE CLINICAL HISTORY: 72 years-old Female presenting with ABDOMINAL PAIN/GI, bloating, shortness of breath. TECHNIQUE: Portable upright AP view of the chest was obtained. COMPARISON: 05/16/2017. FINDINGS: Left subclavian Mediport terminates in the superior cavoatrial junction. Low lung volumes with hypoventilatory changes as on prior exam. Vague bibasilar opacities, unchanged. No new focal infiltrate. No large pleural effusion or pneumothorax. Degenerative changes of the thoracic spine. Upper abdomen normal. IMPRESSION: 1. Low lung volumes with hypoventilatory changes and bibasilar atelectasis, unchanged. No new focal infiltrate. Electronically signed by: Laurent Thornton M.D. 05/26/2017 7:50 PM Dictated Date/Time: 05/26/2017 7:48 PM Impression Assessment and Plan 72 year old female with cholangiocarcinoma presents with progressive shortness of breath and abdominal distension Malignant Ascites - US guided Therapeutic paracentesis in the morning, will also send for routine labs and cultures. Portal vein thrombosis - heparin IV overnight, switch to oral/SQ anticoagulation after paracentesis. GERD - pantoprazole 40mg PO daily. Liver cirrhosis - Lasix 40mg IV daily. Resident Physician Supervision Note: I was present with Dr. Guerrero during the history and exam. I discussed the case with the resident and agree with the findings and plan as documented in the note. Any exceptions or clarifications are listed here: 72 y/o F Hx cholangiocarcinoma, malignant ascites, portal thrombosis - presents at the behest of her primary MD for abdominal distention and resultant SOB and recent, as yet untreated portal vein thrombosis OE AAO x 3 S1.2 R CTAB Distended, NT, BS+ No CCE P: Pt placed on a Heparin GTT overnight - will be turned off AM for therapeutic paracentesis Will likely need long-term anticoagulation with Coumadin Long-term management to be discussed with primary Documented By: Rahul Ruvalcaba Level of Care Med/Surg Advanced Directives Existing Living Will: Yes Existing Power of Warehouse Traffic Supervisor: Yes Resuscitation Status DO NOT RESUSCITATE VTE Prophylaxis VTE Risk Assessment Done? Y/N: Yes Risk Level: High Given or contraindicated: Other Anticoagulation, T.E.D. Stockings, SCD's Additional Copies To Sheng Lopez M.D. Resident Tracking Resident Involvement: Resident Care Provided Care Provided: Adult Hospital Medicine
[2017-05-26] MEDS ORDERED: HEPARIN 25000 UNIT/500 ML D5W ONE (21:34)
[2017-05-26] MEDS ORDERED: HEPARIN 25000 UNIT/ D5W 500 ML (PHARMACY PREPARED) IV PRN ×2 (21:45)
[2017-05-26 21:50] VITALS: BP 127/73; PULSE 101; TEMP 36.8; O2SAT 93
[2017-05-26] MEDS: NADOLOL 40 MG TAB PO SCH (23:49)
[2017-05-26] MEDS: DOCUSATE SODIUM 100 MG CAP PO SCH (23:50)
[2017-05-26] MEDS: CALCIUM 600MG + VIT D 400 IU TAB PO SCH (23:50)
[2017-05-26] MEDS: SPIRONOLACTONE 100 MG TAB PO SCH (23:50)
[2017-05-27 03:06] LABS: PARTIAL THROMBOPLASTIN RATIO 6.8
[2017-05-27] MEDS: TRAMADOL HCL 50 MG TAB PO PRN (03:26)
[2017-05-27 04:14] VITALS: BP 99/66; PULSE 89; TEMP 37; O2SAT 91
[2017-05-27 04:32] LABS: BASO % 0.4 %; BASO ABS # 0.05 K/uL (0-0.2); COMPLETE YES; EOS % 1.3 %; HEMATOCRIT 31.6 % (37-47); IG% 1.6 %; LYMPH % 14.1 %; MEAN CORPUSCULAR HEMOGLOBIN 33.5 pg (25-34); MEAN CORPUSCULAR HGB CONC 33.2 g/dl (32-36); MEAN PLATELET VOLUME 9.4 fL (7.4-10.4); MONO % 20.3 %; NEUT % 62.3 %; PLATELET COUNT 144 K/uL (130-400); RED BLOOD COUNT 3.13 M/uL (4.2-5.4); WHITE BLOOD COUNT 12.73 K/uL (4.8-10.8)
[2017-05-27 04:51] LABS: INR 1.4 (0.9-1.1); PARTIAL THROMBOPLASTIN RATIO 2.7; PROTHROMBIN TIME (PATIENT) 14.9 SECONDS (9.0-12.0)
[2017-05-27 04:56] LABS: ALB/GLOB RATIO 0.5 (0.9-2); ALKALINE PHOSPHATASE 120 U/L (45-117); ALT/SGPT 90 U/L (12-78); BLOOD UREA NITROGEN 17 mg/dl (7-18); BUN/CREATININE RATIO 22.6 (10-20); CALCIUM 7.8 mg/dl (8.5-10.1); CARBON DIOXIDE 24 mmol/L (21-32); CHLORIDE 102 mmol/L (98-107); CREATININE 0.76 mg/dl (0.60-1.20); GLUCOSE 118 mg/dl (70-99); SODIUM 131 mmol/L (136-145)
[2017-05-27 05:04] LABS: URINE APPEARANCE CLEAR (CLEAR); URINE BILIRUBIN NEG (NEG); URINE COLOR DK YELLOW; URINE EPITHELIAL CELL AUTO 20-30 /lpf (0-5); URINE NITRITE NEG (NEG); URINE PH 5.5 (4.5-7.5); URINE SPECIFIC GRAVITY 1.016 (1.000-1.030); UROBILINOGEN NEG (NEG); ZZUR CULT IF INDIC CLEAN CATCH NO
[2017-05-27 05:10] LABS: MANUAL MICROSCOPIC REQUIRED? NO; REVIEW REQ? NO
[2017-05-27 06:17] LABS: POTASSIUM 4.6 mmol/L (3.5-5.1)
[2017-05-27 07:57] VITALS: BP 94/60; PULSE 89; TEMP 36.7; O2SAT 92
[2017-05-27 08:00] VITALS: O2SAT 92
[2017-05-27] MEDS: PANTOprazole SOD 40 MG TAB PO SCH (08:09)
[2017-05-27] MEDS: SPIRONOLACTONE 100 MG TAB PO SCH ×2 (08:09→17:01)
--- NOTE | 2017-05-27 08:12 | Family Medicine Progress Note ---
Progress Note Date of Service May 27, 2017. Subjective Pt evaluation today including: conversation w/ patient, physical exam, chart review, lab review, review of studies pt describes abdominal distension and discomfort, GERD and nausea. Constitutional: No fever, No chills, No sweats Respiratory: No cough, No sputum, No wheezing, No shortness of breath Cardiovascular: No chest pain, No orthopnea, No edema, No palpitations Abdomen: + pain, + nausea, No vomiting, No diarrhea Medications Current Inpatient Medications Medications (Trade) Dose Ordered Sig/Tigist Route Start Time Stop Time Status Last Admin Dose Admin Ondansetron HCl (Zofran Inj) 4 mg Q6H PRN IV 05/26/17 20:45 06/25/17 20:44 Calcium/Vitamin D (Caltrate Plus Tab) 1 tab BID PO 05/26/17 21:00 06/25/17 20:59 05/27/17 11:38 1 TAB Docusate Sodium (coLACE CAP) 100 mg BID PO 05/26/17 21:00 06/25/17 20:59 05/27/17 11:38 100 MG Furosemide (Lasix Tab) 40 mg QAM PO 05/27/17 08:00 06/26/17 08:59 05/27/17 08:13 40 MG Multivitamins/ Minerals (Multivitamin W/ Minerals Tab) 1 tab QAM PO 05/27/17 08:00 06/26/17 08:59 05/27/17 11:38 1 TAB Nadolol (Corgard Tab) 20 mg QPM PO 05/26/17 21:00 06/25/17 20:59 05/26/17 23:49 20 MG Tramadol HCl (Ultram Tab) 50 mg Q4H PRN PO 05/26/17 20:45 06/25/17 20:44 05/27/17 03:26 50 MG Pantoprazole Sodium (Protonix Tab) 40 mg QAM PO 05/27/17 08:00 06/26/17 08:59 05/27/17 08:09 40 MG Polyethylene (Miralax Powder Packet) 17 gm BID PO 05/26/17 21:00 06/25/17 20:59 05/27/17 11:38 17 GM Spironolactone (Aldactone Tab) 50 mg BID17 PO 05/26/17 21:00 06/25/17 20:59 05/27/17 17:01 50 MG Miscellaneous (Iv Fluids Completed) 1 ea PRN PRN N/A 05/26/17 21:15 05/26/18 21:14 Ceftriaxone Sodium 2000 mg/ Dextrose 70 ml @ 100 mls/hr DAILY@1800 IV 05/27/17 18:00 06/06/17 17:59 Heparin Sodium (Porcine) (Heparin 100 Unit/ml 5ml Flush) 5 ml PRN PRN IV 05/27/17 17:00 06/26/17 16:59 Objective Vital Signs Date Time Temp Pulse Resp B/P (MAP) Pulse Ox O2 Delivery O2 Flow Rate FiO2 05/27/17 16:07 36.8 86 18 108/71 (83) 92 Room Air 05/27/17 16:00 Room Air 05/27/17 11:51 36.6 83 18 93/53 (66) 94 Room Air 05/27/17 08:00 92 Room Air 05/27/17 07:57 36.7 89 18 94/60 (71) 92 Room Air 05/27/17 04:14 37.0 89 20 99/66 (77) 91 Room Air 05/27/17 00:00 Room Air 05/26/17 21:50 36.8 101 18 127/73 (91) 93 Room Air 05/26/17 21:36 97 18 120/75 93 Room Air 05/26/17 21:19 100 16 92 05/26/17 21:01 122/73 05/26/17 20:49 84 21 05/26/17 20:19 Room Air 05/26/17 20:19 108 22 05/26/17 20:17 103/59 05/26/17 19:50 92 05/26/17 19:49 96 Room Air 05/26/17 19:49 99 18 95 05/26/17 19:44 105/55 05/26/17 19:30 94 Room Air 05/26/17 18:32 37.2 98 23 102/68 95 Room Air Physical Exam General Appearance: WD/WN, no apparent distress Respiratory/Chest: chest non-tender, lungs clear, normal breath sounds, no respiratory distress, no accessory muscle use Cardiovascular: regular rate, rhythm, no edema, no gallop, no JVD, no murmur Abdomen: normal bowel sounds, + distended, + tenderness Neurologic/Psychiatric: alert, normal mood/affect, oriented x 3 Skin: normal color, warm/dry, no rash Laboratory Results 05/27/17 04:22 Red Blood Count 3.13, Mean Corpuscular Volume 101.0, Mean Corpuscular Hemoglobin 33.5, Mean Corpuscular Hemoglobin Concent 33.2, Mean Platelet Volume 9.4, Neutrophils (%) (Auto) 62.3, Lymphocytes (%) (Auto) 14.1, Monocytes (%) ( Auto) 20.3, Eosinophils (%) (Auto) 1.3, Basophils (%) (Auto) 0.4, Neutrophils # (Auto) 7.93, Lymphocytes # (Auto) 1.80, Monocytes # (Auto) 2.58, Eosinophils # ( Auto) 0.17, Basophils # (Auto) 0.05 05/27/17 04:22 05/27/17 05:49 Test 05/26/17 19:50 05/27/17 00:00 05/27/17 04:22 05/27/17 05:49 Neutrophils % (Manual) 81.4 % Lymphocytes % (Manual) 3.5 % Monocytes % (Manual) 12.4 % Basophils % (Manual) 0.9 % Myelocytes % 1.8 % Neutrophils # (Manual) 11.05 K/uL (1.4-6.5) Total Absolute Neutrophils 11.05 K/uL (1.4-6.5) Lymphocytes # (Manual) 0.48 K/uL (1.2-3.4) Total Absolute Lymphocytes 0.48 K/uL (1.2-3.4) Monocytes # (Manual) 1.68 K/uL (0.11-0.59) Basophils # (Manual) 0.12 K/uL (0-0.2) Myelocytes # 0.24 K/uL (0-0) Direct Bilirubin 1.1 mg/dl (0-0.2) Lipase 186 U/L (73-393) Urine Color DK YELLOW Urine Appearance CLEAR (CLEAR) Urine pH 5.5 (4.5-7.5) Urine Specific [place] 1.016 (1.000-1.030) Urine Protein NEG (NEG) Urine Glucose (UA) NEG (NEG) Urine Ketones NEG (NEG) Urine Occult Blood NEG (NEG) Urine Nitrite NEG (NEG) Urine Bilirubin NEG (NEG) Urine Urobilinogen NEG (NEG) Urine Leukocyte Esterase NEG (NEG) Urine WBC (Auto) 1-5 /hpf (0-5) Urine RBC (Auto) 0-4 /hpf (0-4) Urine Hyaline Casts (Auto) 1-5 /lpf (0-5) Urine Epithelial Cells (Auto) 20-30 /lpf (0-5) Urine Bacteria (Auto) NEG (NEG) Peritoneal Fluid Color STRAW Peritoneal Fluid Appearance CLOUDY Peritoneal Fluid WBC 1281 /uL (0-300) Peritoneal Fluid RBC 3000 /uL Peritoneal Fld Mononuclear WBCs (%) 36.4 % Peritoneal Fld Polynuclear WBCs (%) 63.6 % Peritoneal Fluid Total Protein 1.1 g/dl Peritoneal Fluid Albumin < 0.6 g/dl Peritoneal Fluid LDH 262 IU Peritoneal Fluid Glucose 126 mg/dl White Blood Count 12.73 K/uL (4.8-10.8) Red Blood Count 3.13 M/uL (4.2-5.4) Hemoglobin 10.5 g/dL (12.0-16.0) Hematocrit 31.6 % (37-47) Mean Corpuscular Volume 101.0 fL (80-100) Mean Corpuscular Hemoglobin 33.5 pg (25-34) Mean Corpuscular Hemoglobin Concent 33.2 g/dl (32-36) Platelet Count 144 K/uL (130-400) Mean Platelet Volume 9.4 fL (7.4-10.4) Neutrophils (%) (Auto) 62.3 % Lymphocytes (%) (Auto) 14.1 % Monocytes (%) (Auto) 20.3 % Eosinophils (%) (Auto) 1.3 % Basophils (%) (Auto) 0.4 % Neutrophils # (Auto) 7.93 K/uL (1.4-6.5) Lymphocytes # (Auto) 1.80 K/uL (1.2-3.4) Monocytes # (Auto) 2.58 K/uL (0.11-0.59) Eosinophils # (Auto) 0.17 K/uL (0-0.5) Basophils # (Auto) 0.05 K/uL (0-0.2) RDW Standard Deviation 53.3 fL (36.4-46.3) RDW Coefficient of Variation 14.6 % (11.5-14.5) Immature Granulocyte % (Auto) 1.6 % Immature Granulocyte # (Auto) 0.20 K/uL (0.00-0.02) Prothrombin Time 14.9 SECONDS (9.0-12.0) Prothromb Time International Ratio 1.4 (0.9-1.1) Anion Gap 5.0 mmol/L (3-11) Est Creatinine Clear Calc Drug Dose 68.9 ml/min Estimated GFR () 92.1 Estimated GFR (Non- 79.5 BUN/Creatinine Ratio 22.6 (10-20) Calcium Level 7.8 mg/dl (8.5-10.1) Total Bilirubin 2.3 mg/dl (0.2-1) Alanine Aminotransferase (ALT/SGPT) 90 U/L (12-78) Alkaline Phosphatase 120 U/L (45-117) Total Protein 5.4 gm/dl (6.4-8.2) Albumin 1.7 gm/dl (3.4-5.0) Globulin 3.7 gm/dl (2.5-4.0) Albumin/Globulin Ratio 0.5 (0.9-2) Aspartate Amino Transf (AST/SGOT) 165 U/L (15-37) Test 05/27/17 11:03 Activated Partial Thromboplast Time 36.4 SECONDS (21.0-31.0) Partial Thromboplastin Ratio 1.4 Assessment and Plan 72 year old female with cholangiocarcinoma presents with progressive shortness of breath and abdominal distension 05/27 Pt was taken for paracentesis, which yielded only 100 cc of fluid. Gram stain showed numerous WBC and patient was started on IV ceftriaxone. Had a discussion with the patient regarding inevitable course of her disease and plans for if symptomatic treatments fail. Pt dismissed the topic at this time because she says she is focused on making it to her sons wedding in 2 weeks. -IV ceftriaxone for 48 -Holding anticoagulation Malignant Ascites - US guided Therapeutic paracentesis in this morning, set for culture. - Paracentesis yield only 100 cc of fluid, patient still uncomfortable, abdomen distended - Fluid gram stain showed, many WBC, no organisms seen - Fluid culture is pending - Appreciating gastro recommendation; pt started on IV ceftriaxone for 48hrs. - worsening ascites could be 2/2 to portal vein thrombosis, SBP and or malignancy Portal vein thrombosis - Currently holding anticoagulation Chronic Hep C - Pt not a candidate for treatment GERD - pantoprazole 40mg PO daily. Liver cirrhosis 2/2 to metastatic disease - Lasix 40mg IV daily. Assessment/Plan Resident Physician Supervision Note: I was present with Dr. Barker during the history and exam. I discussed the case with the resident and agree with the findings and plan as documented in the note. Any exceptions or clarifications are listed here. 72 y/o female h/o metastatic cholangiocarcinoma w/ worsening SOB and abdominal distention concerning for malignant ascites s/p paracentesis. Presently, pt is disappointed only partial relief was found in fluid removal, though abd discomfort is mildly improved. She is considering restarting chemotherapy per Dr. 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 I reviewed palliative options with her without intent to execute them on present admission. Per Jessica, oncology is aware of pt. On examination, abd is distended w/ fluid wave and still diffusely TTP, S1/S2 nl RRR no MCG, CTAB. Ascites - blood noted on tap, numerous WBC - Ceftriaxone as noted. Holding heparin at this time, GI consultation placed. Gentle diuresis w/ lasix 40mg IV. Follow fluid labs/culture PVT - holding heparin 2/2 blood on tap, await GI recommendation Chronic hepatitis C GERD - continue PPI
[2017-05-27] MEDS: FUROSEMIDE 40 MG TAB PO SCH (08:13)
--- NOTE | 2017-05-27 11:13 | DIAGNOSTIC IMAGING REPORT ---
ULTRASOUND-GUIDED DIAGNOSTIC AND THERAPEUTIC PARACENTESIS: HISTORY: Ascites. Metastatic cholangiocarcinoma. Procedure: The procedure and its risks, benefits and alternatives were discussed with the patient and written informed consent was obtained. Preliminary ultrasound of the abdomen was performed to determine a safe needle entry site. The right upper quadrant was prepped and draped in the usual sterile fashion. 1% Lidocaine was used for local anesthesia. Only a small pocket of fluid was identified within the right upper quadrant. This was accessed by a 20-gauge spinal needle under ultrasound guidance. A total of 100 cc of ascites was removed. The patient tolerated the procedure well and there were no immediate complications. IMPRESSION: Ultrasound-guided therapeutic and diagnostic paracentesis with aspiration of 100 cc of ascites. No additional fluid was obtained due to the small pocket of fluid. The fluid was sent to the laboratory for further evaluation. Electronically signed by: Ross Kruger M.D. 05/27/2017 11:12 AM Dictated Date/Time: 05/27/2017 11:08 AM
[2017-05-27] MEDS: POLYETHYLENE (MIRALAX) 17 GM PACK PO SCH ×2 (11:38→20:00)
[2017-05-27] MEDS: CEROVITE ADV FORMULA TAB PO SCH (11:38)
[2017-05-27] MEDS: CALCIUM 600MG + VIT D 400 IU TAB PO SCH ×2 (11:38→20:27)
[2017-05-27] MEDS: DOCUSATE SODIUM 100 MG CAP PO SCH ×2 (11:38→20:27)
[2017-05-27 11:40] LABS: PARTIAL THROMBOPLASTIN RATIO 1.4
[2017-05-27 11:51] VITALS: BP 93/53; PULSE 83; TEMP 36.6; O2SAT 94
[2017-05-27 13:17] LABS: PERIT FL WBC 1281 /uL (0-300); PERITONEAL FLUID RBC 3000 /uL
[2017-05-27 16:07] VITALS: BP 108/71; PULSE 86; TEMP 36.8; O2SAT 92
--- NOTE | 2017-05-27 17:06 | Gastrointestinal Consultation ---
Gastrointestinal Consultation Date of Consultation: May 27, 2017 Attending Physician: DR Anurag Damico Consulting Physician: Dr Basilio Rodriguez Reason for Consultation: metastatic cholangiocarcinoma, ascites, portal vein thrombosis History of Present Illness Patient is a 72 year old female who presented with shortness of breath and increased abdominal girth. HPI Reviewed [facility] EMR as well as data in this EMR. Pt with cholangioarcinoma diagnosed 2016 s/p XRT,chemo. Has mets to liver and lung. Most recent intervention is splenic artery embolizatin 05/12/17 at [place]. She has hep C and cirrhosis and failed interferon treatment. DR Mendoza on 03/31/17 appt at [place] stated she is not a candidate for Hep C treatment with the cancer. She has had problems with constipation and admitted couple times to [facility] and responded to laxatives. She thinks since splenic artery embolization she has had shortness of breath and increased abd girth. Today she had paracentesis showing 1281 WBC with 63% neurtrophills or 807 neutrophils which is well over the 250 threshold which is cutoff for SBP. She had CT A/P 05/20/17 showing new PV thrombosis. She has known grade 2 varies document on an EGD 06/14/2016. Her weight has been increasing. No n/v, no fever, struggles with constiation, No bloody nor black stools. She has pain in LUQ she attributes to spleen manipulation and overall pressure pain in abdomen. Past Medical/Surgical History Medical Problems: (1) Abdominal discomfort Status: Acute (2) Ascites Status: Acute (3) Atelectasis of left lung Status: Acute (4) Constipation Status: Acute (5) Elevated troponin I level Status: Acute (6) Hyponatremia Status: Acute (7) Intractable abdominal pain Status: Acute (8) Portal vein thrombosis Status: Acute Family History FHx: cancer Social History Smoking Status: Former Smoker Drug Use: none Marital Status: Housing Status: lives with family Occupation Status: employed Allergies Coded Allergies: Clam (Verified Allergy, Severe, ANAPHYLAXIS, 05/26/17) Iodinated Diagnostic Agents (Verified Allergy, Mild, SNEEZING, ITCHY NOSE , 05/26/17) Current Medications Home Meds and Scripts Medications Dose Route/Sig Max Daily Dose Days Date Category Docusate Sodium 100 Mg Cap 100 Mg PO BID 30 05/23/17 Rx Tramadol HCl 50 Mg Tab 50 Mg PO Q4H PRN 3 05/23/17 Rx Polyethylene Glycol 3350 (Polyethylene Glycol 3350 (Bulk) 1 Pow Pow 17 Gm PO BID 30 05/23/17 Rx Oxycodone HCl 5 Mg Tab 5 Mg PO Q4 PRN 05/16/17 Reported Prilosec (Omeprazole) 20 Mg Capcr 20 Mg PO QAM 05/16/17 Reported Corgard (Nadolol) 20 Mg Tab 20 Mg PO QPM 05/16/17 Reported Codeine (Codeine Sulfate) 15 Mg Tab 15 Mg PO Q4H PRN 06/01/16 Reported Lasix (Furosemide) 40 Mg Tab 40 Mg PO QAM 06/01/16 Reported Aldactone (Spironolactone) 50 Mg Tab 50 Mg PO BID 06/01/16 Reported Mvi With Minerals (Multivitamins/Minerals) Tab 1 Tab PO QAM 09/21/15 Reported Os-Alexis 500 Plus D (Calcium/Vitamin D) Tab 1 Tab PO BID 09/21/15 Reported Review of Systems see HPI. Otherwise 10 ROS negative. Physical Exam Date Time Temp Pulse Resp B/P (MAP) Pulse Ox O2 Delivery O2 Flow Rate FiO2 05/27/17 16:07 36.8 86 18 108/71 (83) 92 Room Air 05/27/17 11:51 36.6 83 18 93/53 (66) 94 Room Air 05/27/17 08:00 92 Room Air 05/27/17 07:57 36.7 89 18 94/60 (71) 92 Room Air 05/27/17 04:14 37.0 89 20 99/66 (77) 91 Room Air 05/27/17 00:00 Room Air 05/26/17 21:50 36.8 101 18 127/73 (91) 93 Room Air 05/26/17 21:36 97 18 120/75 93 Room Air 05/26/17 21:19 100 16 92 05/26/17 21:01 122/73 05/26/17 20:49 84 21 05/26/17 20:19 Room Air 05/26/17 20:19 108 22 05/26/17 20:17 103/59 05/26/17 19:50 92 05/26/17 19:49 96 Room Air 05/26/17 19:49 99 18 95 05/26/17 19:44 105/55 05/26/17 19:30 94 Room Air 05/26/17 18:32 37.2 98 23 102/68 95 Room Air General Appearance: WD/WN, no apparent distress Eyes: normal inspection ENT: hearing grossly normal, pharynx normal Neck: supple, trachea midline Respiratory/Chest: lungs clear, no respiratory distress Cardiovascular: no murmur, + pertinent finding (lower extremity edema) Abdomen: normal bowel sounds, non tender, soft, no organomegaly, no pulsatile mass Extremities: non-tender, normal inspection 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, normal mood/affect, oriented x 3 Skin: normal color, warm/dry Laboratory Results Last 24 Hours Test 05/26/17 19:50 05/27/17 00:00 05/27/17 02:32 05/27/17 04:22 White Blood Count 13.58 K/uL 12.73 K/uL Red Blood Count 3.22 M/uL 3.13 M/uL Hemoglobin 11.1 g/dL 10.5 g/dL Hematocrit 32.8 % 31.6 % Mean Corpuscular Volume 101.9 fL 101.0 fL Mean Corpuscular Hemoglobin 34.5 pg 33.5 pg Mean Corpuscular Hemoglobin Concent 33.8 g/dl 33.2 g/dl Platelet Count 132 K/uL 144 K/uL Mean Platelet Volume 9.8 fL 9.4 fL RDW Standard Deviation 53.4 fL 53.3 fL RDW Coefficient of Variation 14.5 % 14.6 % Neutrophils % (Manual) 81.4 % Lymphocytes % (Manual) 3.5 % Monocytes % (Manual) 12.4 % Basophils % (Manual) 0.9 % Myelocytes % 1.8 % Neutrophils # (Manual) 11.05 K/uL Total Absolute Neutrophils 11.05 K/uL Lymphocytes # (Manual) 0.48 K/uL Total Absolute Lymphocytes 0.48 K/uL Monocytes # (Manual) 1.68 K/uL Basophils # (Manual) 0.12 K/uL Myelocytes # 0.24 K/uL Prothrombin Time 14.6 SECONDS 14.9 SECONDS Prothromb Time International Ratio 1.3 1.4 Activated Partial Thromboplast Time 32.4 SECONDS 176.7 SECONDS 71.4 SECONDS Partial Thromboplastin Ratio 1.2 6.8 2.7 Sodium Level 131 mmol/L 131 mmol/L Potassium Level 4.5 mmol/L mmol/L Chloride Level 99 mmol/L 102 mmol/L Carbon Dioxide Level 27 mmol/L 24 mmol/L Anion Gap 5.0 mmol/L 5.0 mmol/L Blood Urea Nitrogen 19 mg/dl 17 mg/dl Creatinine 0.79 mg/dl 0.76 mg/dl Est Creatinine Clear Calc Drug Dose 66.3 ml/min 68.9 ml/min Estimated GFR () 87.9 92.1 Estimated GFR (Non- 75.8 79.5 BUN/Creatinine Ratio 24.2 22.6 Random Glucose 130 mg/dl 118 mg/dl Calcium Level 8.3 mg/dl 7.8 mg/dl Total Bilirubin 1.8 mg/dl 2.3 mg/dl Direct Bilirubin 1.1 mg/dl Aspartate Amino Transf (AST/SGOT) 172 U/L U/L Alanine Aminotransferase (ALT/SGPT) 94 U/L 90 U/L Alkaline Phosphatase 152 U/L 120 U/L Total Protein 5.7 gm/dl 5.4 gm/dl Albumin 1.8 gm/dl 1.7 gm/dl Lipase 186 U/L Urine Color DK YELLOW Urine Appearance CLEAR Urine pH 5.5 Urine Specific [place] 1.016 Urine Protein NEG Urine Glucose (UA) NEG Urine Ketones NEG Urine Occult Blood NEG Urine Nitrite NEG Urine Bilirubin NEG Urine Urobilinogen NEG Urine Leukocyte Esterase NEG Urine WBC (Auto) 1-5 /hpf Urine RBC (Auto) 0-4 /hpf Urine Hyaline Casts (Auto) 1-5 /lpf Urine Epithelial Cells (Auto) 20-30 /lpf Urine Bacteria (Auto) NEG Peritoneal Fluid Color STRAW Peritoneal Fluid Appearance CLOUDY Peritoneal Fluid WBC 1281 /uL Peritoneal Fluid RBC 3000 /uL Peritoneal Fld Mononuclear WBCs (%) 36.4 % Peritoneal Fld Polynuclear WBCs (%) 63.6 % Peritoneal Fluid Total Protein 1.1 g/dl Peritoneal Fluid Albumin < 0.6 g/dl Peritoneal Fluid LDH 262 IU Peritoneal Fluid Glucose 126 mg/dl Neutrophils (%) (Auto) 62.3 % Lymphocytes (%) (Auto) 14.1 % Monocytes (%) (Auto) 20.3 % Eosinophils (%) (Auto) 1.3 % Basophils (%) (Auto) 0.4 % Neutrophils # (Auto) 7.93 K/uL Lymphocytes # (Auto) 1.80 K/uL Monocytes # (Auto) 2.58 K/uL Eosinophils # (Auto) 0.17 K/uL Basophils # (Auto) 0.05 K/uL Immature Granulocyte % (Auto) 1.6 % Immature Granulocyte # (Auto) 0.20 K/uL Globulin 3.7 gm/dl Albumin/Globulin Ratio 0.5 Test 05/27/17 05:49 05/27/17 11:03 Potassium Level 4.6 mmol/L Aspartate Amino Transf (AST/SGOT) 165 U/L Activated Partial Thromboplast Time 36.4 SECONDS Partial Thromboplastin Ratio 1.4 Impression SBP--ordered ceftriaxone daily which can be changed if necessary when culture back. Would treat at least 48 hours IV with total of 14 days of abx. PV thrombosis--could be additional source of worsening ascites. agree with anticoagulation--Lovenox or coumadin could be used usp but warned patient of bleeding risk as well given the varices ascites--worsening could be SBP, PV thrombosis, and tumor hep C not a candidate for treatment per hepatology at [place] elev LfTs---at baseline metastatic cholangiiocarcinoma--nothing acute to do
[2017-05-27] MEDS: CEFTRIAXONE SOD INJ 2,000 MG in DEXTROSE 5% 50ML 50 ML IV SCH (18:26)
[2017-05-27 19:51] VITALS: BP 100/65; PULSE 93; TEMP 36.9; O2SAT 94
[2017-05-27] MEDS: NADOLOL 40 MG TAB PO SCH (20:27)
[2017-05-28] VITALS (11 sets, daily range): BP systolic 83–112; BP diastolic 54–78; PULSE 84–99; TEMP 36.7–37.2; O2SAT 91–95
[2017-05-28 07:05] LABS: BASO % 0.3 %; BASO ABS # 0.04 K/uL (0-0.2); COMPLETE YES; EOS % 1.1 %; HEMATOCRIT 32.4 % (37-47); LYMPH % 9.5 %; MEAN CELL VOLUME 101.6 fL (80-100); MEAN CORPUSCULAR HEMOGLOBIN 33.9 pg (25-34); MEAN CORPUSCULAR HGB CONC 33.3 g/dl (32-36); MEAN PLATELET VOLUME 9.6 fL (7.4-10.4); MONO % 21.1 %; PLATELET COUNT 142 K/uL (130-400); RED BLOOD COUNT 3.19 M/uL (4.2-5.4); WHITE BLOOD COUNT 12.57 K/uL (4.8-10.8)
[2017-05-28 07:29] LABS: INR 1.3 (0.9-1.1); PARTIAL THROMBOPLASTIN RATIO 1.2; PROTHROMBIN TIME (PATIENT) 14.4 SECONDS (9.0-12.0)
[2017-05-28 07:42] LABS: BUN/CREATININE RATIO 20.9 (10-20); CALCIUM 7.7 mg/dl (8.5-10.1); CREATININE 0.81 mg/dl (0.60-1.20); POTASSIUM 4.6 mmol/L (3.5-5.1)
[2017-05-28 07:54] LABS: ALB/GLOB RATIO 0.4 (0.9-2)
[2017-05-28] MEDS: CEROVITE ADV FORMULA TAB PO SCH (08:00)
[2017-05-28] MEDS: PANTOprazole SOD 40 MG TAB PO SCH (08:00)
[2017-05-28] MEDS: DOCUSATE SODIUM 100 MG CAP PO SCH ×2 (08:00→19:49)
[2017-05-28] MEDS: FUROSEMIDE 40 MG TAB PO SCH (08:01)
[2017-05-28] MEDS: POLYETHYLENE (MIRALAX) 17 GM PACK PO SCH ×2 (08:08→19:51)
[2017-05-28] MEDS: SPIRONOLACTONE 100 MG TAB PO SCH ×2 (08:08→18:11)
[2017-05-28] MEDS: CALCIUM 600MG + VIT D 400 IU TAB PO SCH ×2 (08:09→19:49)
--- NOTE | 2017-05-28 08:27 | Family Medicine Progress Note ---
Progress Note Date of Service May 28, 2017. Subjective Pt evaluation today including: conversation w/ patient, physical exam, chart review, lab review Pain: Patient reports discomfort in abdomen Voiding: no voiding problems Patient is in good spirits, is eager to hear about plan for the next few days. She is eager to go home but is frustrated that she has had to return to the hospital so many times recently Constitutional: No fever, No chills, No sweats ENT: No nasal symptoms, No sore throat, No trouble swallowing Respiratory: + dyspnea on exertion, No cough, No sputum, No wheezing Cardiovascular: + edema, No chest pain, No orthopnea Abdomen: + see HPI, + pain, + nausea Medications Current Inpatient Medications Medications (Trade) Dose Ordered Sig/Tigist Route Start Time Stop Time Status Last Admin Dose Admin Ondansetron HCl (Zofran Inj) 4 mg Q6H PRN IV 05/26/17 20:45 06/25/17 20:44 Calcium/Vitamin D (Caltrate Plus Tab) 1 tab BID PO 05/26/17 21:00 06/25/17 20:59 05/28/17 19:49 1 TAB Docusate Sodium (coLACE CAP) 100 mg BID PO 05/26/17 21:00 06/25/17 20:59 05/28/17 19:49 100 MG Furosemide (Lasix Tab) 40 mg QAM PO 05/27/17 08:00 06/26/17 08:59 05/28/17 08:01 40 MG Multivitamins/ Minerals (Multivitamin W/ Minerals Tab) 1 tab QAM PO 05/27/17 08:00 06/26/17 08:59 05/28/17 08:00 1 TAB Nadolol (Corgard Tab) 20 mg QPM PO 05/26/17 21:00 06/25/17 20:59 05/28/17 19:50 20 MG Tramadol HCl (Ultram Tab) 50 mg Q4H PRN PO 05/26/17 20:45 06/25/17 20:44 05/28/17 19:49 50 MG Pantoprazole Sodium (Protonix Tab) 40 mg QAM PO 05/27/17 08:00 06/26/17 08:59 05/28/17 08:00 40 MG Polyethylene (Miralax Powder Packet) 17 gm BID PO 05/26/17 21:00 06/25/17 20:59 05/28/17 08:08 17 GM Spironolactone (Aldactone Tab) 50 mg BID17 PO 05/26/17 21:00 06/25/17 20:59 05/28/17 18:11 50 MG Miscellaneous (Iv Fluids Completed) 1 ea PRN PRN N/A 05/26/17 21:15 05/26/18 21:14 Ceftriaxone Sodium 2000 mg/ Dextrose 70 ml @ 100 mls/hr DAILY@1800 IV 05/27/17 18:00 06/06/17 17:59 05/28/17 18:18 100 MLS/HR Heparin Sodium (Porcine) (Heparin 100 Unit/ml 5ml Flush) 5 ml PRN PRN IV 05/27/17 17:00 06/26/17 16:59 05/27/17 18:59 5 ML Heparin Sodium/ Dextrose 500 ml @ 22 mls/hr [id number] PRN IV 05/28/17 15:15 06/27/17 15:14 05/28/17 15:59 22 MLS/HR Objective Vital Signs Date Time Temp Pulse Resp B/P (MAP) Pulse Ox O2 Delivery O2 Flow Rate FiO2 05/28/17 20:00 94 Room Air 05/28/17 19:15 37.1 96 18 107/75 (86) 91 Room Air 05/28/17 16:00 94 Room Air 05/28/17 15:43 36.7 98 16 112/78 (89) 95 Nasal Cannula 05/28/17 11:54 37.1 91 18 90/63 (72) 93 Room Air 05/28/17 08:00 94 Room Air 05/28/17 07:13 36.7 88 20 100/65 (77) 92 05/28/17 03:45 36.9 84 18 105/67 (80) 92 Room Air 05/28/17 00:22 37.2 99 18 93/58 (70) 92 Room Air 05/28/17 00:00 92 Room Air Physical Exam General Appearance: WD/WN, no apparent distress Eyes: normal inspection, PERRL, EOMI ENT: hearing grossly normal Respiratory/Chest: chest non-tender, lungs clear, normal breath sounds, no respiratory distress, no accessory muscle use Cardiovascular: regular rate, rhythm, no murmur, + pertinent finding ( peripheral edema) Abdomen: normal bowel sounds, + distended, + tenderness Extremities: non-tender, no calf tenderness, + pedal edema Neurologic/Psychiatric: ip attorney II-XII nml as tested, no motor/sensory deficits, alert, normal mood/affect, oriented x 3 Skin: normal color, no rash Laboratory Results Last Resulted 05/28/17 14:38 Red Blood Count 3.41, Mean Corpuscular Volume 102.6, Mean Corpuscular Hemoglobin 34.6, Mean Corpuscular Hemoglobin Concent 33.7, Mean Platelet Volume 9.5, Neutrophils (%) (Auto) 69.6, Lymphocytes (%) (Auto) 6.6, Monocytes (%) ( Auto) 21.7, Eosinophils (%) (Auto) 0.9, Basophils (%) (Auto) 0.3, Neutrophils # (Auto) 8.19, Lymphocytes # (Auto) 0.77, Monocytes # (Auto) 2.55, Eosinophils # ( Auto) 0.10, Basophils # (Auto) 0.03 Last Resulted 05/28/17 06:36 Past 24 Hours Test 05/28/17 06:36 05/28/17 14:38 Range/Units Prothromb Time International Ratio 1.3 H 1.3 H 0.9-1.1 Prothrombin Time 14.4 H 14.4 H 9.0-12.0 SECONDS Assessment and Plan 72 year old female with cholangiocarcinoma presents with progressive shortness of breath and abdominal distension 05/[address] Rodriguez, will treat for presumed SBP. EGD planned for Tuesday. Had a discussion with the patient regarding inevitable course of her disease and plans for if symptomatic treatments fail. Pt dismissed the topic at this time because she says she is focused on making it to her sons wedding in 2 weeks. -IV ceftriaxone continued per GI Rx of SBP -IV Heparin started Malignant Ascites - Awaiting paracentesis culture. - Paracentesis yield only 100 cc of fluid, patient still uncomfortable, abdomen distended - Fluid gram stain showed, many WBC, no organisms seen - worsening ascites could be 2/2 to portal vein thrombosis, SBP and or malignancy Portal vein thrombosis - Restarted IV heparin Chronic Hep C - Pt not a candidate for treatment GERD - pantoprazole 40mg PO daily. Liver cirrhosis 2/2 to metastatic disease - Lasix 40mg IV daily. Code: DNR DVT: IV Heparin Dispo: Remains on med/surg; will need to be admitted at least until EGD tuesday Assessment/Plan Resident Physician Supervision Note: I was present with Dr. Dover during the history and exam. I discussed the case with the resident and agree with the findings and plan as documented in the note. Any exceptions or clarifications are listed here. 72 y/o female h/o metastatic cholangiocarcinoma w/ worsening SOB and abdominal distention concerning for malignant ascites s/p paracentesis. Pt reports breathing and abdominal distention/discomfort roughly at baseline. We briefly discussed the overall course of her disease, I will ask Dr. Khan to reach out to Dr. Murphy on her behalf. Abd distended w/ fluid wave and still diffusely TTP but less so than previous, S1/S2 nl RRR no MCG, CTAB. Spontaneous bacterial peritonitis - numerous WBC - Ceftriaxone as noted. Initiate heparin today. Gentle diuresis w/ lasix 40mg IV. Follow fluid labs/ culture PVT - GI consulted, will need EGD on Tuesday for evaluation of varices to determine course of care and AC. 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
--- NOTE | 2017-05-28 13:18 | Gastroenterology Progress Note ---
Progress Note Date of Service: May 28, 2017 Subjective Pt evaluation today including: conversation w/ patient, physical exam, chart review, lab review, review of studies, review of inpatient medication list CC f/u SBP HPI Pt experiencing abdominal pressure as before. Continuing SOB with exertion , no change. Review of Systems Respiratory: + shortness of breath (with exertion no change) Cardiac: No chest pain Medications Current Inpatient Medications Medications (Trade) Dose Ordered Sig/Tigist Route Start Time Stop Time Status Last Admin Dose Admin Ondansetron HCl (Zofran Inj) 4 mg Q6H PRN IV 05/26/17 20:45 06/25/17 20:44 Calcium/Vitamin D (Caltrate Plus Tab) 1 tab BID PO 05/26/17 21:00 06/25/17 20:59 05/28/17 08:09 1 TAB Docusate Sodium (coLACE CAP) 100 mg BID PO 05/26/17 21:00 06/25/17 20:59 05/28/17 08:00 100 MG Furosemide (Lasix Tab) 40 mg QAM PO 05/27/17 08:00 06/26/17 08:59 05/28/17 08:01 40 MG Multivitamins/ Minerals (Multivitamin W/ Minerals Tab) 1 tab QAM PO 05/27/17 08:00 06/26/17 08:59 05/28/17 08:00 1 TAB Nadolol (Corgard Tab) 20 mg QPM PO 05/26/17 21:00 06/25/17 20:59 05/27/17 20:27 20 MG Tramadol HCl (Ultram Tab) 50 mg Q4H PRN PO 05/26/17 20:45 06/25/17 20:44 05/27/17 03:26 50 MG Pantoprazole Sodium (Protonix Tab) 40 mg QAM PO 05/27/17 08:00 06/26/17 08:59 05/28/17 08:00 40 MG Polyethylene (Miralax Powder Packet) 17 gm BID PO 05/26/17 21:00 06/25/17 20:59 05/28/17 08:08 17 GM Spironolactone (Aldactone Tab) 50 mg BID17 PO 05/26/17 21:00 06/25/17 20:59 05/28/17 08:08 50 MG Miscellaneous (Iv Fluids Completed) 1 ea PRN PRN N/A 05/26/17 21:15 05/26/18 21:14 Ceftriaxone Sodium 2000 mg/ Dextrose 70 ml @ 100 mls/hr DAILY@1800 IV 05/27/17 18:00 06/06/17 17:59 05/27/17 18:26 100 MLS/HR Heparin Sodium (Porcine) (Heparin 100 Unit/ml 5ml Flush) 5 ml PRN PRN IV 05/27/17 17:00 06/26/17 16:59 05/27/17 18:59 5 ML Objective Vital Signs Date Time Temp Pulse Resp B/P (MAP) Pulse Ox O2 Delivery O2 Flow Rate FiO2 05/28/17 11:54 37.1 91 18 90/63 (72) 93 Room Air 05/28/17 07:13 36.7 88 20 100/65 (77) 92 05/28/17 03:45 36.9 84 18 105/67 (80) 92 Room Air 05/28/17 00:22 37.2 99 18 93/58 (70) 92 Room Air 05/28/17 00:00 92 Room Air 05/27/17 19:51 36.9 93 20 100/65 (77) 94 Room Air 05/27/17 16:07 36.8 86 18 108/71 (83) 92 Room Air 05/27/17 16:00 Room Air Physical Exam General Appearance: WD/WN, no apparent distress Respiratory/Chest: lungs clear, normal breath sounds Cardiovascular: no murmur Abdomen: normal bowel sounds, soft, no organomegaly, + pertinent finding ( protuberant but soft, no guarding nor rebound) Neurologic/Psych: alert, oriented x 3 Laboratory Results Last 24 Hours Test 05/28/17 06:36 White Blood Count 12.57 K/uL Red Blood Count 3.19 M/uL Hemoglobin 10.8 g/dL Hematocrit 32.4 % Mean Corpuscular Volume 101.6 fL Mean Corpuscular Hemoglobin 33.9 pg Mean Corpuscular Hemoglobin Concent 33.3 g/dl Platelet Count 142 K/uL Mean Platelet Volume 9.6 fL Neutrophils (%) (Auto) 67.0 % Lymphocytes (%) (Auto) 9.5 % Monocytes (%) (Auto) 21.1 % Eosinophils (%) (Auto) 1.1 % Basophils (%) (Auto) 0.3 % Neutrophils # (Auto) 8.41 K/uL Lymphocytes # (Auto) 1.20 K/uL Monocytes # (Auto) 2.65 K/uL Eosinophils # (Auto) 0.14 K/uL Basophils # (Auto) 0.04 K/uL RDW Standard Deviation 54.3 fL RDW Coefficient of Variation 14.7 % Immature Granulocyte % (Auto) 1.0 % Immature Granulocyte # (Auto) 0.13 K/uL Prothrombin Time 14.4 SECONDS Prothromb Time International Ratio 1.3 Activated Partial Thromboplast Time 32.1 SECONDS Partial Thromboplastin Ratio 1.2 Sodium Level 132 mmol/L Potassium Level 4.6 mmol/L Chloride Level 102 mmol/L Carbon Dioxide Level 25 mmol/L Anion Gap 5.0 mmol/L Blood Urea Nitrogen 17 mg/dl Creatinine 0.81 mg/dl Est Creatinine Clear Calc Drug Dose 63.9 ml/min Estimated GFR () 85.3 Estimated GFR (Non- 73.6 BUN/Creatinine Ratio 20.9 Random Glucose 123 mg/dl Calcium Level 7.7 mg/dl Total Bilirubin 2.0 mg/dl Aspartate Amino Transf (AST/SGOT) 164 U/L Alanine Aminotransferase (ALT/SGPT) 83 U/L Alkaline Phosphatase 118 U/L Total Protein 5.2 gm/dl Albumin 1.6 gm/dl Globulin 3.6 gm/dl Albumin/Globulin Ratio 0.4 Assessment and Plan SBP--ordered ceftriaxone daily which can be changed if necessary when culture back. Would treat at least 48 hours IV with total of 14 days of abx. PV thrombosis--could be additional source of worsening ascites. 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 She Agrees to EGD tuesday. Could use IV heparin in the meantime. esophageal varices--EGD with possible banding tuesday. Proc and risks explained which include but not limited to medication reaction, bleeding, perforation, and aspiration. ascites--recent worsening could be SBP, PV thrombosis, and tumor hep C not a candidate for treatment per hepatology at [facility]---at baseline metastatic cholangiiocarcinoma--nothing acute to do
[2017-05-28 14:45] LABS: BASO % 0.3 %; BASO ABS # 0.03 K/uL (0-0.2); EOS % 0.9 %; IG% 0.9 %; LYMPH % 6.6 %; LYMPH ABS # 0.77 K/uL (1.2-3.4); MEAN CELL VOLUME 102.6 fL (80-100); MEAN CORPUSCULAR HEMOGLOBIN 34.6 pg (25-34); MEAN PLATELET VOLUME 9.5 fL (7.4-10.4); MONO % 21.7 %; NEUT % 69.6 %; PLATELET COUNT 157 K/uL (130-400); RED BLOOD COUNT 3.41 M/uL (4.2-5.4); WHITE BLOOD COUNT 11.75 K/uL (4.8-10.8)
[2017-05-28 14:53] LABS: COMPLETE YES; MEAN CORPUSCULAR HGB CONC 33.7 g/dl (32-36)
[2017-05-28 15:00] LABS: INR 1.3 (0.9-1.1); PARTIAL THROMBOPLASTIN RATIO 1.2; PROTHROMBIN TIME (PATIENT) 14.4 SECONDS (9.0-12.0)
[2017-05-28] MEDS ORDERED: HEPARIN 25,000 UNIT/500ML D5W 500 ML IV PRN (15:15)
[2017-05-28] MEDS: CEFTRIAXONE SOD INJ 2,000 MG in DEXTROSE 5% 50ML 50 ML IV SCH (18:18)
[2017-05-28] MEDS: TRAMADOL HCL 50 MG TAB PO PRN (19:49)
[2017-05-28] MEDS: NADOLOL 40 MG TAB PO SCH (19:50)
[2017-05-28 22:47] LABS: PARTIAL THROMBOPLASTIN RATIO 4.9
[2017-05-29] VITALS (12 sets, daily range): BP systolic 88–133; BP diastolic 55–85; PULSE 80–98; TEMP 36.7–37.3; O2SAT 90–96
[2017-05-29 05:48] LABS: MEAN CELL VOLUME 100.6 fL (80-100); MEAN CORPUSCULAR HEMOGLOBIN 34.3 pg (25-34); MEAN CORPUSCULAR HGB CONC 34.1 g/dl (32-36); MEAN PLATELET VOLUME 9.5 fL (7.4-10.4); PLATELET COUNT 146 K/uL (130-400); RED BLOOD COUNT 3.18 M/uL (4.2-5.4); WHITE BLOOD COUNT 13.23 K/uL (4.8-10.8)
[2017-05-29 06:15] LABS: PARTIAL THROMBOPLASTIN RATIO 5.6
[2017-05-29 08:09] LABS: PARTIAL THROMBOPLASTIN RATIO 3.1
[2017-05-29] MEDS: SPIRONOLACTONE 100 MG TAB PO SCH ×2 (08:20→17:23)
[2017-05-29] MEDS: PANTOprazole SOD 40 MG TAB PO SCH (08:21)
[2017-05-29] MEDS: POLYETHYLENE (MIRALAX) 17 GM PACK PO SCH ×2 (08:21→20:00)
[2017-05-29] MEDS: FUROSEMIDE 40 MG TAB PO SCH (08:21)
[2017-05-29] MEDS: CALCIUM 600MG + VIT D 400 IU TAB PO SCH ×2 (08:21→20:15)
[2017-05-29] MEDS: DOCUSATE SODIUM 100 MG CAP PO SCH ×2 (08:21→20:15)
[2017-05-29] MEDS: CEROVITE ADV FORMULA TAB PO SCH (08:21)
--- NOTE | 2017-05-29 13:00 | Gastroenterology Progress Note ---
Progress Note Date of Service: May 29, 2017 Subjective Pt evaluation today including: conversation w/ patient, physical exam, chart review, lab review, review of studies, review of inpatient medication list CC f/u ascites, SBP HPI Ongoing abdominal pressure possibly slightly better today. Review of Systems Respiratory: + shortness of breath (secondary to ascites) Cardiac: No chest pain Medications Current Inpatient Medications Medications (Trade) Dose Ordered Sig/Tigist Route Start Time Stop Time Status Last Admin Dose Admin Ondansetron HCl (Zofran Inj) 4 mg Q6H PRN IV 05/26/17 20:45 06/25/17 20:44 Calcium/Vitamin D (Caltrate Plus Tab) 1 tab BID PO 05/26/17 21:00 06/25/17 20:59 05/29/17 08:21 1 TAB Docusate Sodium (coLACE CAP) 100 mg BID PO 05/26/17 21:00 06/25/17 20:59 05/29/17 08:21 100 MG Furosemide (Lasix Tab) 40 mg QAM PO 05/27/17 08:00 06/26/17 08:59 05/29/17 08:21 40 MG Multivitamins/ Minerals (Multivitamin W/ Minerals Tab) 1 tab QAM PO 05/27/17 08:00 06/26/17 08:59 05/29/17 08:21 1 TAB Nadolol (Corgard Tab) 20 mg QPM PO 05/26/17 21:00 06/25/17 20:59 05/28/17 19:50 20 MG Tramadol HCl (Ultram Tab) 50 mg Q4H PRN PO 05/26/17 20:45 06/25/17 20:44 05/28/17 19:49 50 MG Pantoprazole Sodium (Protonix Tab) 40 mg QAM PO 05/27/17 08:00 06/26/17 08:59 05/29/17 08:21 40 MG Polyethylene (Miralax Powder Packet) 17 gm BID PO 05/26/17 21:00 06/25/17 20:59 05/29/17 08:21 17 GM Spironolactone (Aldactone Tab) 50 mg BID17 PO 05/26/17 21:00 06/25/17 20:59 05/29/17 08:20 50 MG Miscellaneous (Iv Fluids Completed) 1 ea PRN PRN N/A 05/26/17 21:15 05/26/18 21:14 Ceftriaxone Sodium 2000 mg/ Dextrose 70 ml @ 100 mls/hr DAILY@1800 IV 05/27/17 18:00 06/06/17 17:59 05/28/17 18:18 100 MLS/HR Heparin Sodium (Porcine) (Heparin 100 Unit/ml 5ml Flush) 5 ml PRN PRN IV 05/27/17 17:00 06/26/17 16:59 05/27/17 18:59 5 ML Heparin Sodium/ Dextrose 500 ml @ 18 mls/hr Q24H PRN IV 05/28/17 15:15 06/27/17 15:14 05/28/17 15:59 22 MLS/HR Objective Vital Signs Date Time Temp Pulse Resp B/P (MAP) Pulse Ox O2 Delivery O2 Flow Rate FiO2 05/29/17 11:18 36.7 87 16 98/65 (76) 93 Room Air 05/29/17 08:00 96 Room Air 05/29/17 07:44 36.7 80 16 133/85 (101) 90 05/29/17 04:19 36.7 82 20 88/59 (69) 92 Room Air 05/29/17 00:08 94 Room Air 05/29/17 00:00 87 89/55 (66) 05/28/17 23:05 36.9 85 20 83/54 (64) 91 Room Air 05/28/17 20:00 94 Room Air 05/28/17 19:15 37.1 96 18 107/75 (86) 91 Room Air 05/28/17 16:00 94 Room Air 05/28/17 15:43 36.7 98 16 112/78 (89) 95 Nasal Cannula Physical Exam General Appearance: WD/WN, no apparent distress Respiratory/Chest: lungs clear, no respiratory distress Cardiovascular: no murmur Abdomen: normal bowel sounds, no organomegaly, + pertinent finding ( protuberant but not tense, no guarding nor rebound, ) Laboratory Results Last 24 Hours Test 05/28/17 14:38 05/28/17 22:04 05/29/17 05:34 05/29/17 07:05 White Blood Count 11.75 K/uL 13.23 K/uL Red Blood Count 3.41 M/uL 3.18 M/uL Hemoglobin 11.8 g/dL 10.9 g/dL Hematocrit 35.0 % 32.0 % Mean Corpuscular Volume 102.6 fL 100.6 fL Mean Corpuscular Hemoglobin 34.6 pg 34.3 pg Mean Corpuscular Hemoglobin Concent 33.7 g/dl 34.1 g/dl Platelet Count 157 K/uL 146 K/uL Mean Platelet Volume 9.5 fL 9.5 fL Neutrophils (%) (Auto) 69.6 % Lymphocytes (%) (Auto) 6.6 % Monocytes (%) (Auto) 21.7 % Eosinophils (%) (Auto) 0.9 % Basophils (%) (Auto) 0.3 % Neutrophils # (Auto) 8.19 K/uL Lymphocytes # (Auto) 0.77 K/uL Monocytes # (Auto) 2.55 K/uL Eosinophils # (Auto) 0.10 K/uL Basophils # (Auto) 0.03 K/uL RDW Standard Deviation 54.3 fL 52.6 fL RDW Coefficient of Variation 14.5 % 14.5 % Immature Granulocyte % (Auto) 0.9 % Immature Granulocyte # (Auto) 0.11 K/uL Prothrombin Time 14.4 SECONDS Prothromb Time International Ratio 1.3 Activated Partial Thromboplast Time 31.0 SECONDS 128.0 SECONDS 145.2 SECONDS 80.1 SECONDS Partial Thromboplastin Ratio 1.2 4.9 5.6 3.1 Assessment and Plan SBP- ceftriaxone daily which can be changed if necessary when culture back-- culture neg so far, WBC worse today. No fever, If WBC continues to worsen and cx still neg would get ID consult elev WBC--as above. PV thrombosis--could be additional source of worsening ascites. agree with anticoagulation--Lovenox or coumadin could be used long-term but warned patient of bleeding risk as well given the varices, To guage the risk of continuous churn buttermaker anticoagulation I think patient should have and EGD to assess varices again since with this thombus they may be larger. She Agrees to EGD tuesday. Could use IV heparin in the meantime. esophageal varices--EGD with possible banding tuesday. Proc and risks explained which include but not limited to medication reaction, bleeding, perforation, and aspiration. ascites--recent worsening could be SBP, PV thrombosis, and tumor hep C not a candidate for treatment per hepatology at [facility]---at baseline metastatic cholangiiocarcinoma--nothing acute to do Pt asking about whether she should be tranaferred to [facility] or not. . I told her if she wants that then she should have primary team arrange. In the meantime will plan EGD tomorrow and other plans as above.
[2017-05-29 15:30] LABS: INR 1.3 (0.9-1.1); PARTIAL THROMBOPLASTIN RATIO 1.2
[2017-05-29] MEDS ORDERED: HEPARIN IV BOLUS 4,000 UNIT in SYRINGE 0 ML IV ONE (15:30)
--- NOTE | 2017-05-29 16:33 | DIAGNOSTIC IMAGING REPORT ---
CHEST 2 VIEWS ROUTINE HISTORY: 72 years-old Female Decreased breath sounds at bases with increased WBC leukocytosis with decreased breath sounds at the left lung base COMPARISON: Chest radiograph 05/26/2017, CT 05/20/2017 TECHNIQUE: PA and lateral views of the chest FINDINGS: Cardiac silhouette is mildly enlarged, unchanged. Left subclavian [id number] catheter is again seen with distal tip terminating in the region of the right atrium. No pneumothorax. Lungs are hypoinflated. Small left pleural effusion redemonstrated with hypoinflation and bronchovascular crowding. Subsegmental hazy bibasilar opacities suggest atelectasis. The bones of the chest are grossly intact. IMPRESSION: 1. Hypoinflated lungs with bronchovascular crowding. 2. Persistent small left pleural effusion with bibasilar opacities suggesting atelectasis. The above report was generated using voice recognition software. It may contain grammatical, syntax or spelling errors. Electronically signed by: Cuong Garcia M.D. 05/29/2017 4:32 PM Dictated Date/Time: 05/29/2017 4:30 PM
[2017-05-29] MEDS: CEFTRIAXONE SOD INJ 2,000 MG in DEXTROSE 5% 50ML 50 ML IV SCH (17:24)
[2017-05-29] MEDS: TRAMADOL HCL 50 MG TAB PO PRN (18:05)
--- NOTE | 2017-05-29 19:09 | Family Medicine Progress Note ---
Progress Note Date of Service May 29, 2017. Subjective Pt evaluation today including: conversation w/ patient, physical exam, chart review, lab review Pain: moderate discomfort compared to yesterday PO Intake: Tolerating PO diet well Voiding: no voiding problems Patient c/o increasing abdominal discomfort and restlessness. Some dyspnea on exertion, weakness also reported Constitutional: + weakness, No fever, No chills, No sweats, No weight loss, No problem reported Respiratory: + dyspnea on exertion Cardiovascular: + edema Abdomen: + pain, + nausea All Other Systems: Reviewed and Negative Medications Current Inpatient Medications Medications (Trade) Dose Ordered Sig/Tigist Route Start Time Stop Time Status Last Admin Dose Admin Ondansetron HCl (Zofran Inj) 4 mg Q6H PRN IV 05/26/17 20:45 06/25/17 20:44 Calcium/Vitamin D (Caltrate Plus Tab) 1 tab BID PO 05/26/17 21:00 06/25/17 20:59 05/29/17 20:15 1 TAB Docusate Sodium (coLACE CAP) 100 mg BID PO 05/26/17 21:00 06/25/17 20:59 05/29/17 20:15 100 MG Furosemide (Lasix Tab) 40 mg QAM PO 05/27/17 08:00 06/26/17 08:59 05/29/17 08:21 40 MG Multivitamins/ Minerals (Multivitamin W/ Minerals Tab) 1 tab QAM PO 05/27/17 08:00 06/26/17 08:59 05/29/17 08:21 1 TAB Nadolol (Corgard Tab) 20 mg QPM PO 05/26/17 21:00 06/25/17 20:59 05/29/17 20:16 20 MG Tramadol HCl (Ultram Tab) 50 mg Q4H PRN PO 05/26/17 20:45 06/25/17 20:44 05/29/17 18:05 50 MG Pantoprazole Sodium (Protonix Tab) 40 mg QAM PO 05/27/17 08:00 06/26/17 08:59 05/29/17 08:21 40 MG Polyethylene (Miralax Powder Packet) 17 gm BID PO 05/26/17 21:00 06/25/17 20:59 05/29/17 08:21 17 GM Spironolactone (Aldactone Tab) 50 mg BID17 PO 05/26/17 21:00 06/25/17 20:59 05/29/17 17:23 50 MG Miscellaneous (Iv Fluids Completed) 1 ea PRN PRN N/A 05/26/17 21:15 05/26/18 21:14 Ceftriaxone Sodium 2000 mg/ Dextrose 70 ml @ 100 mls/hr DAILY@1800 IV 05/27/17 18:00 06/06/17 17:59 05/29/17 17:24 100 MLS/HR Heparin Sodium (Porcine) (Heparin 100 Unit/ml 5ml Flush) 5 ml PRN PRN IV 05/27/17 17:00 06/26/17 16:59 05/27/17 18:59 5 ML Heparin Sodium/ Dextrose 500 ml @ 14 mls/hr Q24H PRN IV 05/28/17 15:15 06/27/17 15:14 05/28/17 15:59 22 MLS/HR Objective Vital Signs Date Time Temp Pulse Resp B/P (MAP) Pulse Ox O2 Delivery O2 Flow Rate FiO2 05/29/17 21:15 37.3 98 20 107/65 94 Room Air 05/29/17 20:28 94 Room Air 05/29/17 20:02 37.3 98 20 107/65 (79) 94 Room Air 05/29/17 16:00 96 Room Air 05/29/17 15:44 36.8 91 18 113/71 (85) 95 Room Air 05/29/17 11:18 36.7 87 16 98/65 (76) 93 Room Air 05/29/17 08:00 96 Room Air 05/29/17 07:44 36.7 80 16 133/85 (101) 90 05/29/17 04:19 36.7 82 20 88/59 (69) 92 Room Air 05/29/17 00:08 94 Room Air 05/29/17 00:00 87 89/55 (66) 05/28/17 23:05 36.9 85 20 83/54 (64) 91 Room Air Physical Exam General Appearance: WD/WN, no apparent distress Eyes: normal inspection, PERRL ENT: hearing grossly normal Neck: supple, no adenopathy Respiratory/Chest: chest non-tender, normal breath sounds, no respiratory distress, no accessory muscle use, + crackles Cardiovascular: regular rate, rhythm, no murmur Abdomen: normal bowel sounds, + distended, + tenderness Extremities: + pedal edema Neurologic/Psychiatric: talent advisor II-XII nml as tested, no motor/sensory deficits, alert, normal mood/affect, oriented x 3 Skin: + jaundice Laboratory Results 05/29/17 05:34 Test 05/29/17 05:34 05/29/17 15:08 05/29/17 22:27 Red Blood Count 3.18 M/uL (4.2-5.4) Mean Corpuscular Volume 100.6 fL (80-100) Mean Corpuscular Hemoglobin 34.3 pg (25-34) Mean Corpuscular Hemoglobin Concent 34.1 g/dl (32-36) RDW Standard Deviation 52.6 fL (36.4-46.3) RDW Coefficient of Variation 14.5 % (11.5-14.5) Mean Platelet Volume 9.5 fL (7.4-10.4) Prothrombin Time 14.0 SECONDS (9.0-12.0) Prothromb Time International Ratio 1.3 (0.9-1.1) Assessment and Plan 72 year old female with cholangiocarcinoma presents with progressive shortness of breath and abdominal distension 05/29 -EGD planned for Tuesday. -IV ceftriaxone continued, november stepdown to oral augmentin tomorrow as no growth returned on ascites culture -IV Heparin started and dose adjusted -CXR repeated to follow up on minimal crackles at lung bases Malignant Ascites - No growth on paracentesis culture, november step down to augmentin or other agent tomorrow - Paracentesis yielded only 100 cc of fluid, patient still uncomfortable, abdomen distended - worsening ascites could be 2/2 to portal vein thrombosis, SBP and or malignancy Portal vein thrombosis - Restarted IV heparin Chronic Hep C - Pt not a candidate for treatment GERD - pantoprazole 40mg PO daily. Liver cirrhosis 2/2 to metastatic disease - Lasix 40mg IV daily. Code: DNR DVT: IV Heparin Dispo: Remains on med/surg; will need to be admitted at least until EGD tuesday Resident Involvement: Resident Care Provided Care Provided: Adult [facility] Assessment/Plan Resident Physician Supervision Note: I was present with Dr. Dover during the history and exam. I discussed the case with the resident and agree with the findings and plan as documented in the note. Any exceptions or clarifications are listed here. 72 y/o female h/o metastatic cholangiocarcinoma w/ worsening SOB and abdominal distention concerning for malignant ascites s/p paracentesis. Pt reports breathing and abdominal distention/discomfort roughly at baseline. Abd distended w/ fluid wave and still diffusely TTP but less so than previous, S1/ S2 nl RRR no MCG, CTAB. Spontaneous bacterial peritonitis - numerousPMN w/ neg Cx - Ceftriaxone. Gentle diuresis w/ lasix 40mg IV. Follow fluid labs/culture. PVT - GI consulted, will need EGD on Tuesday for evaluation of varices to determine course of care and AC. Continue heparin by protocol. 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
[2017-05-29] MEDS: NADOLOL 40 MG TAB PO SCH (20:16)
[2017-05-29 23:31] LABS: PARTIAL THROMBOPLASTIN RATIO 3.7
[2017-05-30] VITALS: O2SAT 94
[2017-05-30 03:58] VITALS: BP 98/64; PULSE 88; TEMP 36.9; O2SAT 91
[2017-05-30 07:08] LABS: HEMATOCRIT 32.7 % (37-47); MEAN CELL VOLUME 100.9 fL (80-100); MEAN CORPUSCULAR HEMOGLOBIN 34.3 pg (25-34); MEAN CORPUSCULAR HGB CONC 33.9 g/dl (32-36); MEAN PLATELET VOLUME 9.5 fL (7.4-10.4); PLATELET COUNT 170 K/uL (130-400); RED BLOOD COUNT 3.24 M/uL (4.2-5.4); WHITE BLOOD COUNT 12.33 K/uL (4.8-10.8)
[2017-05-30 07:24] VITALS: BP 95/52; PULSE 86; TEMP 36.7; O2SAT 92
[2017-05-30 07:29] LABS: PARTIAL THROMBOPLASTIN RATIO 2.5
[2017-05-30 07:33] LABS: BUN/CREATININE RATIO 18.9 (10-20); CALCIUM 7.6 mg/dl (8.5-10.1); CREATININE 0.68 mg/dl (0.60-1.20); POTASSIUM 4.5 mmol/L (3.5-5.1)
[2017-05-30 07:38] LABS: ALB/GLOB RATIO 0.4 (0.9-2)
[2017-05-30 07:49] LABS: BASO % 0.6 %; BASO ABS # 0.07 K/uL (0-0.2); COMPLETE YES; ECHINOCYTES 1+; EOS % 2.1 %; IG% 1.2 %; LYMPH % 13.5 %; LYMPH ABS # 1.66 K/uL (1.2-3.4); MONO % 18.4 %; NEUT % 64.2 %; POIKILOCYTOSIS PRESENT
[2017-05-30 08:00] VITALS: O2SAT 96
[2017-05-30] MEDS: POLYETHYLENE (MIRALAX) 17 GM PACK PO SCH ×2 (08:00→19:35)
[2017-05-30] MEDS: SPIRONOLACTONE 100 MG TAB PO SCH ×2 (08:44→18:04)
[2017-05-30] MEDS: CALCIUM 600MG + VIT D 400 IU TAB PO SCH ×2 (08:45→19:35)
[2017-05-30] MEDS: FUROSEMIDE 40 MG TAB PO SCH (08:45)
[2017-05-30] MEDS: CEROVITE ADV FORMULA TAB PO SCH (08:45)
[2017-05-30] MEDS: DOCUSATE SODIUM 100 MG CAP PO SCH ×2 (08:46→19:35)
[2017-05-30] MEDS: PANTOprazole SOD 40 MG TAB PO SCH (08:46)
--- NOTE | 2017-05-30 15:32 | Family Medicine Progress Note ---
Progress Note Date of Service May 30, 2017. Subjective Pt evaluation today including: conversation w/ patient, conversation w/ family , physical exam, chart review, lab review Constitutional: No fever, No chills, No sweats Respiratory: + shortness of breath, No cough, No sputum, No dyspnea on exertion Cardiovascular: + edema, No chest pain, No orthopnea, No palpitations Abdomen: + pain, + nausea, No vomiting Medications Current Inpatient Medications Medications (Trade) Dose Ordered Sig/Tigist Route Start Time Stop Time Status Last Admin Dose Admin Ondansetron HCl (Zofran Inj) 4 mg Q6H PRN IV 05/26/17 20:45 06/25/17 20:44 Calcium/Vitamin D (Caltrate Plus Tab) 1 tab BID PO 05/26/17 21:00 06/25/17 20:59 05/30/17 08:45 1 TAB Docusate Sodium (coLACE CAP) 100 mg BID PO 05/26/17 21:00 06/25/17 20:59 05/30/17 08:46 100 MG Furosemide (Lasix Tab) 40 mg QAM PO 05/27/17 08:00 06/26/17 08:59 05/30/17 08:45 40 MG Multivitamins/ Minerals (Multivitamin W/ Minerals Tab) 1 tab QAM PO 05/27/17 08:00 06/26/17 08:59 05/30/17 08:45 1 TAB Nadolol (Corgard Tab) 20 mg QPM PO 05/26/17 21:00 06/25/17 20:59 05/29/17 20:16 20 MG Tramadol HCl (Ultram Tab) 50 mg Q4H PRN PO 05/26/17 20:45 06/25/17 20:44 05/29/17 18:05 50 MG Pantoprazole Sodium (Protonix Tab) 40 mg QAM PO 05/27/17 08:00 06/26/17 08:59 05/30/17 08:46 40 MG Polyethylene (Miralax Powder Packet) 17 gm BID PO 05/26/17 21:00 06/25/17 20:59 05/29/17 08:21 17 GM Spironolactone (Aldactone Tab) 50 mg BID17 PO 05/26/17 21:00 06/25/17 20:59 05/30/17 08:44 50 MG Miscellaneous (Iv Fluids Completed) 1 ea PRN PRN N/A 05/26/17 21:15 05/26/18 21:14 Ceftriaxone Sodium 2000 mg/ Dextrose 70 ml @ 100 mls/hr DAILY@1800 IV 05/27/17 18:00 06/06/17 17:59 05/29/17 17:24 100 MLS/HR Heparin Sodium (Porcine) (Heparin 100 Unit/ml 5ml Flush) 5 ml PRN PRN IV 05/27/17 17:00 06/26/17 16:59 05/27/17 18:59 5 ML Heparin Sodium/ Dextrose 500 ml @ 12 mls/hr Q24H PRN IV 05/28/17 15:15 06/27/17 15:14 05/28/17 15:59 22 MLS/HR Objective Vital Signs Date Time Temp Pulse Resp B/P (MAP) Pulse Ox O2 Delivery O2 Flow Rate FiO2 05/30/17 08:00 96 Room Air 05/30/17 07:24 36.7 86 18 95/52 (66) 92 Room Air 05/30/17 03:58 36.9 88 20 98/64 (75) 91 Room Air 05/30/17 00:00 94 Room Air 05/29/17 23:01 36.9 98 20 107/72 (84) 93 Room Air 05/29/17 21:15 37.3 98 20 107/65 94 Room Air 05/29/17 20:28 94 Room Air 05/29/17 20:02 37.3 98 20 107/65 (79) 94 Room Air 05/29/17 16:00 96 Room Air 05/29/17 15:44 36.8 91 18 113/71 (85) 95 Room Air Physical Exam General Appearance: WD/WN, no apparent distress Neck: supple, no adenopathy, thyroid normal Respiratory/Chest: chest non-tender, lungs clear, normal breath sounds, no respiratory distress, no accessory muscle use Cardiovascular: regular rate, rhythm, no edema, no gallop, no JVD, no murmur Abdomen: + abnormal bowel sounds (hypoactive ), + distended, + tenderness Extremities: + pedal edema, + swelling Neurologic/Psychiatric: alert, normal mood/affect, oriented x 3 Skin: normal color, warm/dry, no rash Laboratory Results 05/30/17 06:34 Red Blood Count 3.24, Mean Corpuscular Volume 100.9, Mean Corpuscular Hemoglobin 34.3, Mean Corpuscular Hemoglobin Concent 33.9, Mean Platelet Volume 9.5, Neutrophils (%) (Auto) 64.2, Lymphocytes (%) (Auto) 13.5, Monocytes (%) ( Auto) 18.4, Eosinophils (%) (Auto) 2.1, Basophils (%) (Auto) 0.6, Neutrophils # (Auto) 7.92, Lymphocytes # (Auto) 1.66, Monocytes # (Auto) 2.27, Eosinophils # ( Auto) 0.26, Basophils # (Auto) 0.07 05/30/17 06:34 Test 05/30/17 06:34 White Blood Count 12.33 K/uL (4.8-10.8) Red Blood Count 3.24 M/uL (4.2-5.4) Hemoglobin 11.1 g/dL (12.0-16.0) Hematocrit 32.7 % (37-47) Mean Corpuscular Volume 100.9 fL (80-100) Mean Corpuscular Hemoglobin 34.3 pg (25-34) Mean Corpuscular Hemoglobin Concent 33.9 g/dl (32-36) Platelet Count 170 K/uL (130-400) Mean Platelet Volume 9.5 fL (7.4-10.4) Neutrophils (%) (Auto) 64.2 % Lymphocytes (%) (Auto) 13.5 % Monocytes (%) (Auto) 18.4 % Eosinophils (%) (Auto) 2.1 % Basophils (%) (Auto) 0.6 % Neutrophils # (Auto) 7.92 K/uL (1.4-6.5) Lymphocytes # (Auto) 1.66 K/uL (1.2-3.4) Monocytes # (Auto) 2.27 K/uL (0.11-0.59) Eosinophils # (Auto) 0.26 K/uL (0-0.5) Basophils # (Auto) 0.07 K/uL (0-0.2) RDW Standard Deviation 53.0 fL (36.4-46.3) RDW Coefficient of Variation 14.4 % (11.5-14.5) Immature Granulocyte % (Auto) 1.2 % Immature Granulocyte # (Auto) 0.15 K/uL (0.00-0.02) Poikilocytosis PRESENT Echinocytes 1+ Activated Partial Thromboplast Time 64.1 SECONDS (21.0-31.0) Partial Thromboplastin Ratio 2.5 Anion Gap 7.0 mmol/L (3-11) Est Creatinine Clear Calc Drug Dose 76.2 ml/min Estimated GFR () 102.7 Estimated GFR (Non- 88.6 BUN/Creatinine Ratio 18.9 (10-20) Calcium Level 7.6 mg/dl (8.5-10.1) Total Bilirubin 1.9 mg/dl (0.2-1) Aspartate Amino Transf (AST/SGOT) 156 U/L (15-37) Alanine Aminotransferase (ALT/SGPT) 79 U/L (12-78) Alkaline Phosphatase 118 U/L (45-117) Total Protein 5.2 gm/dl (6.4-8.2) Albumin 1.6 gm/dl (3.4-5.0) Globulin 3.6 gm/dl (2.5-4.0) Albumin/Globulin Ratio 0.4 (0.9-2) Assessment and Plan 72 year old female with cholangiocarcinoma presents with progressive shortness of breath and abdominal distension Spontaneous Bacterial peritonitis - No growth on paracentesis culture - WBC 1200 in ascitic fluid - Dcing IV Rocephin (administer for 3 days); switching patient to PO Augmentin ( day 1) - Paracentesis yielded only 100 cc of fluid, patient still uncomfortable, abdomen distended - worsening ascites could be 2/2 to portal vein thrombosis, SBP and or malignancy -EGD today - noted varices and pylorus polyp on EGD; varices were banded. Puts patient at significant bleeding risk. May forgo outpatient anticoagulation. Continue to hold Heparin. Liver cirrhosis 2/2 Hep C -Elevated LFT's, bilirubin -Continue nadolol, Lasix, Aldactone Portal vein thrombosis - stop anticoagulation due to concern of variceal bleeding Chronic Hep C - Pt not a candidate for treatment GERD - pantoprazole 40mg PO daily. Reviewed: Pt Seen/Exam by Me History no concerns walking in the hallway Constitutional: denies: fever Respiratory: negative: short of breath Cardiovascular: denies chest pain Gastrointestinal/Abdominal: negative: abdominal pain General Appearance: no apparent distress Respiratory: lungs clear, no respiratory distress Cardiovascular: regular rate, rhythm Gastrointestinal: normal bowel sounds, non tender, soft Neurologic/Psychiatric: alert, oriented x 3 Skin Characteristics: warm/dry Assessment/Plan Resident Physician Supervision Note: I independently interviewed and examined the patient and verified the diaz history and physical, reviewed labs and image studies, discussed the case with the resident Dr. Barker and agree with the findings and care plan.
--- NOTE | 2017-05-30 15:53 | History & Physical Bridge Note ---
H&P Re-Evaluation Bridge Note: I have examined the patient, reviewed the History & Physical and in the interval since the performance of the History & Physical I have noted the following changes of clinical significance: No changes noted EGD to assess for portal HTN
[2017-05-30] MEDS ORDERED: LIDOCAINE HCL 2% 2 ML VIAL (20MG/ML) ONE (16:36)
[2017-05-30] MEDS ORDERED: PROPOFOL IV EMULSION 10 MG/ML 20 ML VIAL IV ONE (16:36)
--- NOTE | 2017-05-30 17:04 | Anesthesiology Progress Note ---
Anesthesia Post Op Note Date & Time May 30, 2017 at 17:04 Vital Signs Pain Intensity: 4.0 Vital Signs Past 12 Hours Date Time Temp Pulse Resp B/P (MAP) Pulse Ox O2 Delivery O2 Flow Rate FiO2 05/30/17 16:51 76 16 84/54 (64) 96 Room Air 05/30/17 16:36 37 78 16 82/61 (68) 96 Room Air 05/30/17 15:41 37 82 16 86/56 (66) 95 Room Air 05/30/17 08:00 96 Room Air 05/30/17 07:24 36.7 86 18 95/52 (66) 92 Room Air Notes Mental Status: alert / awake / arousable, participated in evaluation Pt Amnestic to Procedure: Yes Nausea / Vomiting: adequately controlled Pain: adequately controlled Airway Patency, RR, SpO2: stable & adequate BP & HR: stable & adequate Hydration State: stable & adequate Anesthetic Complications: no major complications apparent
--- NOTE | 2017-05-30 17:15 | GI REPORT ---
Procedure Date: 05/30/2017 4:02 PM Procedure: Upper GI endoscopy Indications: Anemia Medicines: Propofol per Anesthesia Complications: No immediate complications. Estimated blood loss: None. Estimated Blood Loss: Estimated blood loss: none. Procedure: Pre-Anesthesia Assessment: - Prior to the procedure, a History and Physical was performed, and patient medications and allergies were reviewed. The patient's tolerance of previous anesthesia was also reviewed. The risks and benefits of the procedure and the sedation options and risks were discussed with the patient. All questions were answered, and informed consent was obtained. Prior Anticoagulants: The patient has taken no previous anticoagulant or antiplatelet agents. ASA Grade Assessment: III - A patient with severe systemic disease. After reviewing the risks and benefits, the patient was deemed in satisfactory condition to undergo the procedure. After obtaining informed consent, the endoscope was passed under direct vision. Throughout the procedure, the patient's blood pressure, pulse, and oxygen saturations were monitored continuously. The scope was introduced through the mouth, and advanced to the second part of duodenum. The upper GI endoscopy was accomplished without difficulty. The patient tolerated the procedure well. Findings: Two columns of non-bleeding grade II varices were found in the middle third of the esophagus, in the lower third of the esophagus and at the lower esophageal sphincter,. They were 4 mm in largest diameter. Stigmata of recent bleeding were evident and red matthew signs were present. Two bands were successfully placed with incomplete eradication of varices. There was no bleeding during, and at the end, of the procedure. Moderate portal hypertensive gastropathy was found in the entire examined stomach. A single 20 mm pedunculated polyp with no bleeding and no stigmata of recent bleeding was found in the prepyloric region of the stomach. The examined duodenum was normal. The cardia and gastric fundus were normal on retroflexion. Retained gastric contents are not identified on this exam. Impression: - Recently bleeding grade II esophageal varices. Incompletely eradicated. Banded. - Portal hypertensive gastropathy. - A single gastric polyp. - Normal examined duodenum. - No specimens collected. Recommendation: - Return patient to hospital [facility] for ongoing care. - Repeat the upper endoscopy in 4 weeks per protocol. - Will plan for extended time to remove polyp in stomach and additional banding as needed. MD Renaldo Chung MD 05/30/2017 5:14:50 PM This report has been signed electronically. Note Initiated On: 05/30/2017 4:02 PM I attest to the content of the Intraoperative Record and orders documented therein, exceptions below
[2017-05-30] MEDS: AMOXICILLIN/CLAVULANATE TAB 875 MG TAB PO SCH (18:06)
[2017-05-30 18:12] VITALS: BP 97/65; PULSE 83; TEMP 36.4; O2SAT 94
[2017-05-30] MEDS ORDERED: NURSING VERBAL MED ORDER ONE ×2 (19:30→20:30)
[2017-05-30] MEDS: TRAMADOL HCL 50 MG TAB PO PRN (19:36)
[2017-05-30 20:29] LABS: PARTIAL THROMBOPLASTIN RATIO 3.1
[2017-05-30 20:45] VITALS: BP 97/66; PULSE 85
[2017-05-30] MEDS: NADOLOL 40 MG TAB PO SCH (20:46)
[2017-05-31] VITALS (8 sets, daily range): BP systolic 97–113; BP diastolic 60–73; PULSE 79–88; TEMP 36.7–37.1; O2SAT 92–96
--- NOTE | 2017-05-31 07:35 | Family Medicine Progress Note ---
Progress Note Date of Service May 31, 2017. Assessment and Plan 72 year old female with cholangiocarcinoma presents with progressive shortness of breath and abdominal distension 05/31 -EGD yesterday afternoon to access varices -Dcing IV Rocephin (administer for 3 days); switching patient to PO Augmentin ( day 1) -IV Heparin stopped for EGD, Continue to hold Heparin. -Pt found to have varices and pylorus polyp on EGD; varices were banded. Puts patient at significant bleeding risk. May forgo outpatient anticoagulation. Malignant Ascites - No growth on paracentesis culture - Paracentesis yielded only 100 cc of fluid, patient still uncomfortable, abdomen distended - worsening ascites could be 2/2 to portal vein thrombosis, SBP and or malignancy Liver cirrhosis 2/2 Hep C -Elevated LFT's, bilirubin -Continue nadolol, Lasix, Aldactone Portal vein thrombosis - Restarted IV heparin Chronic Hep C - Pt not a candidate for treatment GERD - pantoprazole 40mg PO daily.
[2017-05-31 07:49] LABS: BUN/CREATININE RATIO 24.3 (10-20); CALCIUM 7.5 mg/dl (8.5-10.1); CREATININE 0.55 mg/dl (0.60-1.20); POTASSIUM 4.4 mmol/L (3.5-5.1)
[2017-05-31 07:51] LABS: ALB/GLOB RATIO 0.4 (0.9-2)
[2017-05-31] MEDS: POLYETHYLENE (MIRALAX) 17 GM PACK PO SCH (08:00)
[2017-05-31] MEDS: AMOXICILLIN/CLAVULANATE TAB 875 MG TAB PO SCH (08:03)
[2017-05-31] MEDS: CEROVITE ADV FORMULA TAB PO SCH (08:03)
[2017-05-31] MEDS: SPIRONOLACTONE 100 MG TAB PO SCH (08:03)
[2017-05-31] MEDS: PANTOprazole SOD 40 MG TAB PO SCH (08:03)
[2017-05-31] MEDS: CALCIUM 600MG + VIT D 400 IU TAB PO SCH (08:03)
[2017-05-31] MEDS: FUROSEMIDE 40 MG TAB PO SCH (08:03)
[2017-05-31] MEDS: DOCUSATE SODIUM 100 MG CAP PO SCH (08:04)
[2017-05-31] MEDS ORDERED: AMOX1TAB43 PO (15:22)
--- NOTE | 2017-05-31 15:32 | Discharge Instructions ---
Discharge Instructions Date of Service May 31, 2017. Admission Reason for Admission: Abdominal Discomfort, Ascites, Cholangiocarcinoma Discharge Discharge Diagnosis / Problem: Ascites (abdominal swelling) Discharge Goals Goal(s): Improve function, Improve disease control Activity Recommendations Activity Limitations: resume your previous activity . Instructions / Follow-Up Instructions / Follow-Up Elie Rapp came into the hospital with worsening ascites (fluid in your abdomen). When we tested the fluid, it was suggestive of infection and we started you on antibiotics. We are continuing on oral antibiotics in the outpatient setting. Please take Augmentin 2 pills for 5 more days. During your stay, GI also wanted to access the flow of the blood in your liver. You were found to have a clot in the portal vein and started on IV heparin. With this, GI also wanted to access your bleeding risk to determine if you are eligible for parts counterman anticoagulation to prevent future events. This was accessed by doing a EGD to look at your "varices" which are budging veins in your esophagus. EGD helped us determine that you are not a candidate for anticoagulation at this time. I discussed this with Kesha Michele and Dr. Lopez and they agree Please follow up with them in the outpatient setting. It was a pleasure to take care of you and pleasure to get to know you. Dr. Barker Current Hospital Diet Patient's current hospital diet: Regular Diet Discharge Diet Recommended Diet: Regular Diet Diet Texture: Mechanical Soft (ground) Procedures Procedures Performed: EGD with banding Pending Studies Studies pending at discharge: no Medical Emergencies . Who to Call and When: Medical Emergencies: If at any time you feel your situation is an emergency, please call 911 immediately. . Non-Emergent Contact Non-Emergency issues call your: Primary Care Provider, [employer] . . "Provider Documentation" section prepared by Anand Barker. . VTE Core Measure Inpt VTE Proph given/why not?: Other Anticoagulation, T.E.D. Stockings, SCD's
--- NOTE | 2017-05-31 15:48 | PROGRESS NOTE ---
DATE: 05/31/2017 HISTORY OF PRESENT ILLNESS: The patient has a little bit of a sore throat following her EGD yesterday for banding of varices, except grade 2 varices with a red spot that required [address] Srinivasan. She has had no bleeding. She does have what appears to be maybe a chronic portal vein thrombosis and was treated with IV heparin, but this was stopped and will not be continued as an outpatient, especially given her varices and a large antral polyp that is prolapsing that may need to be resected. As her spontaneous bacterial peritonitis, she was treated with IV ceftriaxone and then switched to oral Augmentin, which will be continued as an outpatient for 5 more days. She does have an appointment to see me in early June in the office. At that point, we may consider re-scoping her to reassess the varices and also consider removing that gastric polyp.
--- NOTE | 2017-05-31 17:11 | Discharge Summary ---
Discharge Summary Date of Service May 31, 2017. (Anand Barker M.D.) Discharge Summary Admission Date: May 31, 2017 at 09:46 Discharge Date: May 31, 2017 Discharge Disposition: Home Principal Diagnosis: Acites Problems/Secondary Diagnoses: SBP 2/2 to metastatic cholangiocarcinoma Immunizations: Have You Had Influenza Vaccine: Yes Influenza Vaccine Date: May 05, 2015 History of Tetanus Vaccine?: Yes History of Pneumococcal: Unknown History of Hepatitis B Vaccine: Unknown (Anand Barker M.D.) Medication Reconciliation New Medications: Amoxicillin & Pot Clavulanate (Amoxicillin/Clavulanate P) 1 Tab Tab 875 MG PO BIDM for 5 Days, #10 TAB Continued Medications: Calcium/Vitamin D (Os-Alexis 500 Plus D) Tab 1 TAB PO BID, TAB Codeine Sulfate (Codeine) 15 Mg Tab 15 MG PO Q4H PRN for Pain, TAB Docusate Sodium (Docusate Sodium) 100 Mg Cap 100 MG PO BID for 30 Days, #60 CAP Furosemide (Lasix) 40 Mg Tab 40 MG PO QAM, TAB Multivitamins/Minerals (Mvi With Minerals) Tab 1 TAB PO QAM, TAB Nadolol (Corgard) 20 Mg Tab 20 MG PO QPM Omeprazole (Prilosec) 20 Mg Capcr 20 MG PO QAM, CAP Oxycodone HCl (Oxycodone HCl) 5 Mg Tab 5 MG PO Q4 PRN for Pain Polyethylene Glycol 3350 (Bulk (Polyethylene Glycol 3350) 1 Pow Pow 17 GM PO BID for 30 Days, #527 GM 11 Refills Spironolactone (Aldactone) 50 Mg Tab 50 MG PO BID, TAB Tramadol HCl (Tramadol HCl) 50 Mg Tab 50 MG PO Q4H PRN for Pain for 3 Days, #12 TAB Discharge Exam Review of Systems: Constitutional: No fever, No chills, No sweats Respiratory: No cough, No sputum, No shortness of breath Cardiovascular: No chest pain, No orthopnea, No palpitations Abdomen: No pain, No nausea, No vomiting, No diarrhea Physical Exam: General Appearance: WD/WN, no apparent distress Neck: supple, no adenopathy Respiratory/Chest: chest non-tender, lungs clear, normal breath sounds, no respiratory distress, no accessory muscle use Cardiovascular: regular rate, rhythm, no edema, no gallop, no JVD, no murmur , normal peripheral pulses Abdomen / GI: + tenderness, + abnormal bowel sounds (hypoactive ), + distended Neurologic/Psychiatric: alert, normal mood/affect, oriented x 3 Skin: normal color, warm/dry, no rash (Anand Barker M.D.) Review of Systems: Constitutional: No fever Respiratory: No shortness of breath Cardiovascular: No chest pain Physical Exam: General Appearance: no apparent distress Respiratory/Chest: lungs clear, no respiratory distress Cardiovascular: regular rate, rhythm Abdomen / GI: normal bowel sounds, non tender, soft Neurologic/Psychiatric: alert, oriented x 3 Skin: warm/dry (Margarita Sanchez M.D.) Hospital Course 72 female was a direct admit from Dr. Lopez's office. Pt came in with worsening Ascites Pt has a PMH of metastatic cholangiocarcinoma and Chronic Hep C. Pt was scheduled for paracentesis, which yield very poor results. IR were only able to withdraw 100 cc of fluid. Fluid showed numerous polys, but no growth on culture. Pt was started on IV ceftriaxone and eventually transitioned to PO Augmentin. On a previous visit patient was seen the patient was seen to have a PV thrombosis. In light of this, pt was briefly started on IV Heparin. GI also preformed a EGD during hospitalization to access for esophageal varices. Pt was seen to have varices and were banded. Of concern, patient was also seen to have a pyloric polyp. In light of the EGD finding, anticoagulation was contraindicated due to bleeding risk. Dr. Rebolledo and Dr. Lopez were consulted and agreed with holding anticoagulation. No changes were made to the patients medications at this time Pt did discuss disappointment regarding paracentesis results and reports being very distended and uncomfortable. Throughout the hospital course briefly discussed hospice and palliative care with the patient. Patient remarked that she can only focus on making it to her her sons wedding which is in two weeks. Discussed with patient that hospice would be a good next option for comfort care. Pt instructed to follow up with Dr. Lopez and Kesha Michele in the outpatient setting. Pt instructed to take 5 more days of Augmentin. 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 Puts patient at significant bleeding risk. May forgo outpatient anticoagulation. Continue to hold Heparin. Liver cirrhosis 2/2 Hep C -Elevated LFT's, bilirubin -Continue nadolol, Lasix, Aldactone Portal vein thrombosis - stop anticoagulation due to concern of variceal bleeding Chronic Hep C - Pt not a candidate for treatment GERD - pantoprazole 40mg PO daily. Total Time Spent: Less than 30 minutes This includes examination of the patient, discharge planning, medication reconciliation, and communication with other providers. (Anand Barker M.D.) Resident Physician Supervision Note: I independently interviewed and examined the patient and verified the diaz history and physical, reviewed labs and image studies, discussed the case with the resident Dr. Barker and agree with the findings and care plan. Total Time Spent: Greater than 30 minutes (35) (Margarita Sanchez M.D.) Discharge Instructions Please refer to the electronic Patient Visit Report (Discharge Instructions) for additional information. (Anand Barker M.D.) Additional Copies To Sheng Lopez M.D.; Gautam Rebolledo M.D.
== END 2017-05-31 17:04 | disposition home or self-care (01) | DRG 435 ==
LOC: C.EDB 18:21 → C.4E 20:47 → ENRESERV 20:55 → OBSVTOIN 05-31 09:46
PROVIDERS: ADMIT Internal Medicine; ATTEND Family Medicine
PROC: 0DJ08ZZ Inspection of Upper Intestinal Tract, Via Natural or Artificial Opening Endoscopic (ICD-10-PCS; principal; 2017-05-30 15:36)
DX: C22.1 Intrahepatic bile duct carcinoma (principal); K65.2 Spontaneous bacterial peritonitis; I81 Portal vein thrombosis; C78.00 Secondary malignant neoplasm of unspecified lung; R18.8 Other ascites; B19.20 Unspecified viral hepatitis C without hepatic coma; K74.60 Unspecified cirrhosis of liver; K21.9 Gastro-esophageal reflux disease without esophagitis; Z87.891 Personal history of nicotine dependence; Z80.9 Family history of malignant neoplasm, unspecified

== ENCOUNTER → 2017-06-03 | Outpatient (CLI) | payer BC ==
[~2017-06-03] MED LIST changes: +AMOX1TAB43 PO; -CPR500 PO
[2017-06-03 12:17] LABS: BASO % 0.4 %; BASO ABS # 0.03 K/uL (0-0.2); COMPLETE YES; HEMATOCRIT 35.3 % (37-47); IG% 0.8 %; LYMPH % 8.1 %; LYMPH ABS # 0.68 K/uL (1.2-3.4); MEAN CELL VOLUME 102.9 fL (80-100); MEAN CORPUSCULAR HEMOGLOBIN 32.9 pg (25-34); MEAN PLATELET VOLUME 9.9 fL (7.4-10.4); MONO % 15.2 %; NEUT % 74.5 %; PLATELET COUNT 112 K/uL (130-400); RED BLOOD COUNT 3.43 M/uL (4.2-5.4); WHITE BLOOD COUNT 8.36 K/uL (4.8-10.8)
[2017-06-03 12:46] LABS: ALT/SGPT 82 U/L (12-78); AST/SGOT 178 U/L (15-37); BLOOD UREA NITROGEN 15 mg/dl (7-18); BUN/CREATININE RATIO 20.7 (10-20); CALCIUM 7.9 mg/dl (8.5-10.1); CARBON DIOXIDE 26 mmol/L (21-32); CHLORIDE 99 mmol/L (98-107); CREATININE 0.71 mg/dl (0.60-1.20); GLUCOSE 227 mg/dl (70-99); POTASSIUM 4.5 mmol/L (3.5-5.1); SODIUM 131 mmol/L (136-145)
[2017-06-03 12:49] LABS: ALB/GLOB RATIO 0.4 (0.9-2); ALKALINE PHOSPHATASE 121 U/L (45-117)
== END | disposition home or self-care (01) ==
LOC: C.LAB1850 11:53
PROVIDERS: ATTEND Physician Assistant
DX: C22.1 Intrahepatic bile duct carcinoma (principal)

== ENCOUNTER → 2017-06-06 | Outpatient (CLI) | payer BC ==
--- NOTE | 2017-06-06 14:04 | DIAGNOSTIC IMAGING REPORT ---
CHEST 2 VIEWS ROUTINE CLINICAL HISTORY: CHOLANGLOCARCINOMA C22.1,SHORTNESS OF BREATH COMPARISON STUDY: 05/29/2017 FINDINGS: The cardiac and mediastinal contours remain stable. There is a left-sided A-Port catheter unchanged in position. Small bilateral pleural effusions are suspected left greater than right. There is associated left basilar atelectasis/consolidation.[ IMPRESSION: 1. No significant change from the prior study 2. Small bilateral pleural effusions left greater than right 3. Left basilar atelectasis/consolidation. Electronically signed by: Venancio Carbone M.D. 06/06/2017 2:02 PM Dictated Date/Time: 06/06/2017 2:01 PM
== END | disposition home or self-care (01) ==
LOC: C.RAD 12:49
PROVIDERS: ATTEND Internal Medicine Hematology & Oncology
DX: C22.1 Intrahepatic bile duct carcinoma (principal); R06.02 Shortness of breath; J90 Pleural effusion, not elsewhere classified; R91.8 Other nonspecific abnormal finding of lung field

== ENCOUNTER 2017-06-22 12:02 | Day surgery (SDC) | payer BC ==
[~2017-06-22] VITALS: Ht 157.5 cm; Wt 81.7 kg
[2017-06-22 12:18] VITALS: BP 102/67; PULSE 87; TEMP 36.5; O2SAT 95; Ht 157.5 cm; Wt 81.7 kg
[2017-06-22 12:55] LABS: PLATELET COUNT 126 K/uL (130-400)
--- NOTE | 2017-06-22 14:40 | Discharge Instructions ---
Discharge Instructions Procedure Procedure Date: Jun 22, 2017. Reason for visit: Intrahepatic Bile Duct Carcinoma, Ascites. Discharge Discharge Date: Jun 22, 2017. Discharge Diagnosis: s/p paracentesis Instructions Activity Recommendations: 1 Day-May resume regular activity Return to School/Work: no limitations Recommended Home Diet: No Limitations Provider Instructions: ACTIVITY RECOMMENDATIONS: * Rest today. * Resume regular activity in one day. MEDICATIONS: * May take Tylenol or Ibuprofen as needed for pain. DIET: * Resume previous diet. SPECIAL CARE INSTRUCTIONS: Call your doctor if: * Temperature above 101 degrees F. * Pain not relieved by pain medicine ordered. * Increased drainage or redness from incision. * Notify your doctor with any questions or concerns. Call your doctor or go to the nearest Emergency Department if you experience: * Increased chest pain or shortness of breath. FOLLOW UP VISIT: Follow-up with Referring Physician as scheduled. Allergies Coded Allergies: Clam (Verified Allergy, Severe, ANAPHYLAXIS, 05/26/17) Iodinated Diagnostic Agents (Verified Allergy, Mild, SNEEZING, ITCHY NOSE , 05/26/17) Zulema Oro Recommendations: Call your doctor if: * Temperature above 101 degrees * Pain not relieved by pain medicine ordered * There is increased drainage or redness from any incision * You have any unanswered questions or concerns. Your Doctors Instructions noted above were prepared by provider Panda Peter. Patient Signature Section: Patient Instructions Signature Page Charly Crespo Patient (or Guardian) Signature/Date: I have read and understand the instructions given to me by my caregivers. Caregiver/RN/Doctor Signature/Date: The above-named patient and/or guardian has received patient instructions on this date. + Original Patient Signature Page (only) stays with chart. Please make copy for patient.
[2017-06-22 15:00] VITALS: BP 102/67; PULSE 87; TEMP 36.5; O2SAT 95
--- NOTE | 2017-06-22 15:00 | DIAGNOSTIC IMAGING REPORT ---
ULTRASOUND GUIDED THERAPEUTIC PARACENTESIS CLINICAL HISTORY: Ascites. Bile duct carcinoma. PROCEDURE: The risks, benefits, and alternatives to the procedure were discussed with the patient including the risk of bleeding, infection and injury to adjacent structures. The patient agreed to the procedure and informed written consent was obtained. Following real-time ultrasound localization, the skin of the right lower quadrant was prepped and draped. Following local anesthesia with Xylocaine, the sheath paracentesis needle was inserted and approximately 2 liters of straw-colored fluid was removed by vacuum suction. The patient tolerated the procedure well and no immediate complications were evident. IMPRESSION: Ultrasound-guided paracentesis with removal of 2 liters of ascites. Electronically signed by: Panda Peter M.D. 06/22/2017 2:59 PM Dictated Date/Time: 06/22/2017 2:58 PM
[2017-06-22 15:30] VITALS: BP 93/58; PULSE 83; TEMP 36.5; O2SAT 95
== END 2017-06-22 15:48 | disposition home or self-care (01) ==
LOC: C.ACU 12:02
PROVIDERS: ATTEND Internal Medicine Gastroenterology
DX: C22.1 Intrahepatic bile duct carcinoma (principal); R18.8 Other ascites

== ENCOUNTER → 2017-07-01 | Outpatient (CLI) | payer BC ==
[~2017-07-01] MED LIST changes: +DOCU100C31 PO; +POLY335019 PO; +TRAM-10 PO
[2017-07-01 17:05] LABS: INR 1.3 (0.9-1.1)
[2017-07-01 17:12] LABS: BASO % 0.4 %; BASO ABS # 0.04 K/uL (0-0.2); COMPLETE YES; EOS % 1.6 %; HEMATOCRIT 38.6 % (37-47); IG% 0.4 %; LYMPH % 14.7 %; LYMPH ABS # 1.33 K/uL (1.2-3.4); MEAN CELL VOLUME 98.5 fL (80-100); MEAN CORPUSCULAR HEMOGLOBIN 32.7 pg (25-34); MEAN CORPUSCULAR HGB CONC 33.2 g/dl (32-36); MEAN PLATELET VOLUME 10.3 fL (7.4-10.4); MONO % 17.3 %; NEUT % 65.6 %; PLATELET COUNT 115 K/uL (130-400); RED BLOOD COUNT 3.92 M/uL (4.2-5.4); WHITE BLOOD COUNT 9.02 K/uL (4.8-10.8)
== END | disposition home or self-care (01) ==
LOC: C.LAB 16:26
PROVIDERS: ATTEND Internal Medicine
DX: K74.60 Unspecified cirrhosis of liver (principal)

== ENCOUNTER 2017-07-02 21:42 | Inpatient (IN) | payer BC, OTHER ==
[~2017-07-02] VITALS: Ht 157.5 cm; Wt 77.9 kg
[~2017-07-02 21:42] MED LIST changes: -DOCU100C31 PO; -POLY335019 PO; -TRAM-10 PO
[2017-07-02] MEDS ORDERED: ONDANSETRON INJ 2 MG/ML 2 ML VIAL IV STA (21:55)
[2017-07-02] MEDS ORDERED: SODIUM CHLORIDE 0.9% 1000ML 1,000 ML IV ONE (22:00)
[2017-07-02] MEDS ORDERED: MoRPHine SULFATE 4 MG/ML 1 ML CARP\\VIAL IV ONE (22:00)
[2017-07-02] MEDS ORDERED: DOCU100C31 PO ×2 (22:12)
[2017-07-02] MEDS ORDERED: TRAM-10 PO ×2 (22:15)
[2017-07-02] MEDS ORDERED: POLY335019 PO ×2 (22:16)
[2017-07-02 22:28] LABS: BASO % 0.4 %; BASO ABS # 0.05 K/uL (0-0.2); COMPLETE YES; EOS % 1.1 %; HEMATOCRIT 42.2 % (37-47); IG% 0.8 %; LYMPH % 9.7 %; LYMPH ABS # 1.23 K/uL (1.2-3.4); MEAN CELL VOLUME 96.8 fL (80-100); MEAN CORPUSCULAR HEMOGLOBIN 32.3 pg (25-34); MEAN CORPUSCULAR HGB CONC 33.4 g/dl (32-36); MEAN PLATELET VOLUME 10.1 fL (7.4-10.4); PLATELET COUNT 116 K/uL (130-400); RED BLOOD COUNT 4.36 M/uL (4.2-5.4); WHITE BLOOD COUNT 12.71 K/uL (4.8-10.8)
[2017-07-02 22:49] LABS: BUN/CREATININE RATIO 24.9 (10-20); CALCIUM 8.6 mg/dl (8.5-10.1); CREATININE 0.69 mg/dl (0.60-1.20); POTASSIUM 4.7 mmol/L (3.5-5.1)
[2017-07-02 22:52] LABS: ALB/GLOB RATIO 0.3 (0.9-2)
[2017-07-02] MEDS ORDERED: HYDROmorphone INJ 0.5 MG/0.5 ML SYR IV STA (22:53)
--- NOTE | 2017-07-02 22:55 | DIAGNOSTIC IMAGING REPORT ---
ABDOMEN AND PELVIS CT WITHOUT CONTRAST CT DOSE: 462.57 mGy.cm HISTORY: Generalized abdominal pain. Nausea. Vomiting. TECHNIQUE: Multiaxial CT images of the abdomen and pelvis were performed without contrast. A dose lowering technique was utilized adhering to the principles of ALARA. COMPARISON STUDY: Abdomen and pelvis CT 05/20/2017. FINDINGS: Small left pleural effusion has increased in size. Left lower lobe consolidation has also progressed. Left basilar patchy densities likely represent atelectasis from the pleural fluid. A pneumonia could also have a similar appearance. Again noted are multiple bilateral pulmonary nodules. Dominant nodule within the right lower lobe measures 1.6 cm. These are similar to the prior study. No pneumoperitoneum. No pneumatosis. No suspicious lytic or blastic osseous lesions. Near diffuse hypodensity within the spleen persists and is consistent with a large splenic infarct. The spleen has slightly decreased in size. Cirrhotic liver with intrahepatic bile duct dilatation most pronounced on the left. Portal vein thrombosis is not well visualized due to the lack of intravenous contrast. Mild distended gallbladder. The unenhanced pancreas and kidneys are unremarkable. There appears to be increase in diameter of the superior mesenteric vein which measures 2 cm. This suggests progressive thrombosis. There is progressive edema along the mesenteric veins within the left side the abdomen. The mesenteric veins at this location also demonstrate slight increased density. This is also suggests extensive thrombus within the branches of the mesenteric veins. There is also a long segment of bowel wall thickening of small bowel within the left side the abdomen best seen on images 244 through 327. This favors a jejunal loop. This could be due to ischemia given the suggestive progressive venous thrombosis. There is also slight progression of the moderate ascites. The bladder is unremarkable. Calcified uterine masses are again noted. No evidence for bowel obstruction. Moderate well-formed stool seen throughout the colon. Multiple venous collaterals seen within the abdomen. No retroperitoneal lymphadenopathy. IMPRESSION: 1. There is suggestion of progressive thrombosis of the majority of the superior mesenteric vein and its branches. 2. There is moderate to severe bowel wall thickening involving a long segment of small bowel within the left side the abdomen consistent with a nonspecific enteritis. However, given the suspected findings of progressive superior mesenteric vein thrombosis at this location, this favors ischemia as the underlying etiology. An infectious or inflammatory process could also have a similar appearance. 3. The small left pleural effusion and ascites have slightly progressed. 4. Pulmonary metastatic disease is again noted. 5. 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 The spleen has decreased in size. 6. Additional findings as described above. Electronically signed by: Ross Kruger M.D. 07/02/2017 10:54 PM Dictated Date/Time: 07/02/2017 10:37 PM
--- NOTE | 2017-07-03 03:36 | History and Physical ---
History & Physical Date & Time of Service: Jul 03, 2017 at 03:20 Chief Complaint: Pain In Abd Primary Care Physician: Sheng Lopez M.D. History of Present Illness Source: patient, family, clinic records, hospital records 72F with a PMHx of metastatic cholangiocarcinoma with portal vein thrombosis and esophageal varices, liver cirrhosis 2/2 chronic Hep C and splenic artery embolization p/w a half day history of severe abdominal pain - the worst pain of her life. Her last BM was two days ago and she has been intermittently vomiting. The patient describes the pain as constant and goes across her abdomen. Patient is somnolent during exam, son who is a physician was visiting from [place] for the holidays, helped with the history. He describes his mother's baseline as walking, taking care of her and doing regular activities of daily living. Patient and son are aware of the terminal condition of the patient and would like a DNR code status (confirmed separately with patient). Hospice care was broached with the patient and family at the last admission for abdominal pain however the pt wanted to see her son get which he did. From chart review there are several recent admissions for similar abdominal pain and the patient has received therapeutic paracentesis. Pt does not like to take PO pain medication because it constipates her. Patient has had thoracocentesis in the past most recently in early May that drained only 100cc of fluid. PMHx: Spontaneous Bacterial Peritonitis, Portal vein thrombosis, splenic artery embolization [facility] [place] on 05/12/17 Past Medical/Surgical History Medical Problems: (1) Hepatitis C Status: Chronic Family History FHx: cancer Social History Smoking Status: Never Smoker Smokeless Tobacco Use: No Alcohol Use: none Drug Use: none Marital Status: Housing status: lives with family Occupational Status: employed Immunizations History of Influenza Vaccine: Yes Influenza Vaccine Date: May 05, 2015 History of Tetanus Vaccine?: Yes History of Pneumococcal: Unknown History of Hepatitis B Vaccine: Unknown Multi-Drug Resistant Organisms History of MDRO: No Allergies Coded Allergies: Clam (Verified Allergy, Severe, ANAPHYLAXIS, 05/26/17) Iodinated Diagnostic Agents (Verified Allergy, Mild, SNEEZING, ITCHY NOSE , 05/26/17) Home Medications Scheduled Calcium/Vitamin D (Os-Alexis 500 Plus D), 1 TAB PO BID Docusate Sodium (Docusate Sodium), 100 MG PO BID Furosemide (Lasix), 40 MG PO QAM Multivitamins/Minerals (Mvi With Minerals), 1 TAB PO QAM Nadolol (Corgard), 20 MG PO QPM Omeprazole (Prilosec), 20 MG PO QAM Spironolactone (Aldactone), 50 MG PO BID Scheduled PRN Polyethylene Glycol 3350 (Miralax), 17 GM PO DAILY PRN for Constipation Tramadol (Ultram), 50 MG PO Q4H PRN for Pain Review of Systems Constitutional: No fever, No chills, No sweats, No weight loss Respiratory: + shortness of breath, + dyspnea on exertion, No cough, No sputum Abdomen: + pain, + vomiting, + constipation, No nausea, No diarrhea Genitourinary - Female: No dysuria Neurologic: No memory loss Integumentary: No rash Physical Exam Vital Signs Date Time Temp Pulse Resp B/P (MAP) Pulse Ox O2 Delivery O2 Flow Rate FiO2 07/03/17 03:08 94 20 112/64 93 Room Air 07/03/17 02:02 87 07/03/17 01:48 89 18 108/67 91 Room Air 07/03/17 01:27 78 18 125/70 98 Room Air 07/02/17 23:44 87 18 105/61 96 Room Air 07/02/17 22:05 83 07/02/17 22:02 95 Room Air 07/02/17 21:44 36.7 68 18 99/63 100 Room Air General Appearance: + moderate distress Eyes: PERRL, EOMI Cardiovascular: regular rate, rhythm Abdomen/GI: + pertinent finding (patient has a diffusely tender and distended abdomen, the abdomen was hard and firm, no rebound appreciated. ) Extremities/Musculoskelatal: + pedal edema (2+ pitting edema in the LE bilaterally) Neurologic/Psych: alert, + pertinent finding (patient is drowsy and often doesn 't finish her sentences because she falls asleep. ) Diagnostics Laboratory Results Results Past 24 Hours Test 07/02/17 22:05 07/02/17 22:08 07/02/17 23:29 Range/Units White Blood Count 12.71 4.8-10.8 K/uL Red Blood Count 4.36 4.2-5.4 M/uL Hemoglobin 14.1 12.0-16.0 g/dL Hematocrit 42.2 37-47 % Mean Corpuscular Volume 96.8 80-100 fL Mean Corpuscular Hemoglobin 32.3 25-34 pg Mean Corpuscular Hemoglobin Concent 33.4 32-36 g/dl Platelet Count 116 130-400 K/uL Mean Platelet Volume 10.1 7.4-10.4 fL Neutrophils (%) (Auto) 70.0 % Lymphocytes (%) (Auto) 9.7 % Monocytes (%) (Auto) 18.0 % Eosinophils (%) (Auto) 1.1 % Basophils (%) (Auto) 0.4 % Neutrophils # (Auto) 8.90 1.4-6.5 K/uL Lymphocytes # (Auto) 1.23 1.2-3.4 K/uL Monocytes # (Auto) 2.29 0.11-0.59 K/uL Eosinophils # (Auto) 0.14 0-0.5 K/uL Basophils # (Auto) 0.05 0-0.2 K/uL RDW Standard Deviation 53.7 36.4-46.3 fL RDW Coefficient of Variation 15.4 11.5-14.5 % Immature Granulocyte % (Auto) 0.8 % Immature Granulocyte # (Auto) 0.10 0.00-0.02 K/uL Sodium Level 130 136-145 mmol/L Potassium Level 4.7 3.5-5.1 mmol/L Chloride Level 97 98-107 mmol/L Carbon Dioxide Level 28 21-32 mmol/L Anion Gap 5.0 3-11 mmol/L Blood Urea Nitrogen 17 7-18 mg/dl Creatinine 0.69 0.60-1.20 mg/dl Est Creatinine Clear Calc Drug Dose 73.1 ml/min Estimated GFR () 102.2 Estimated GFR (Non- 88.2 BUN/Creatinine Ratio 24.9 10-20 Random Glucose 125 70-99 mg/dl Calcium Level 8.6 8.5-10.1 mg/dl Total Bilirubin 2.3 0.2-1 mg/dl Aspartate Amino Transf (AST/SGOT) 150 15-37 U/L Alanine Aminotransferase (ALT/SGPT) 87 12-78 U/L Alkaline Phosphatase 126 45-117 U/L Total Protein 7.4 6.4-8.2 gm/dl Albumin 1.9 3.4-5.0 gm/dl Globulin 5.5 2.5-4.0 gm/dl Albumin/Globulin Ratio 0.3 0.9-2 Lipase 134 73-393 U/L Bedside Troponin I 0.050 0-0.045 ng/ml Lactic Acid Level 1.6 0.4-2.0 mmol/L Microbiology Results 07/02/17 Blood Culture, Received Pending 07/02/17 Blood Culture, Received Pending Diagnostic Radiology ABDOMEN AND PELVIS CT WITHOUT CONTRAST CT DOSE: 462.57 mGy.cm HISTORY: Generalized abdominal pain. Nausea. Vomiting. TECHNIQUE: Multiaxial CT images of the abdomen and pelvis were performed without contrast. A dose lowering technique was utilized adhering to the principles of ALARA. COMPARISON STUDY: Abdomen and pelvis CT 05/20/2017. FINDINGS: Small left pleural effusion has increased in size. Left lower lobe consolidation has also progressed. Left basilar patchy densities likely represent atelectasis from the pleural fluid. A pneumonia could also have a similar appearance. Again noted are multiple bilateral pulmonary nodules. Dominant nodule within the right lower lobe measures 1.6 cm. These are similar to the prior study. No pneumoperitoneum. No pneumatosis. No suspicious lytic or blastic osseous lesions. Near diffuse hypodensity within the spleen persists and is consistent with a large splenic infarct. The spleen has slightly decreased in size. Cirrhotic liver with intrahepatic bile duct dilatation most pronounced on the left. Portal vein thrombosis is not well visualized due to the lack of intravenous contrast. Mild distended gallbladder. The unenhanced pancreas and kidneys are unremarkable. There appears to be increase in diameter of the superior mesenteric vein which measures 2 cm. This suggests progressive thrombosis. There is progressive edema along the mesenteric veins within the left side the abdomen. The mesenteric veins at this location also demonstrate slight increased density. This is also suggests extensive thrombus within the branches of the mesenteric veins. There is also a long segment of bowel wall thickening of small bowel within the left side the abdomen best seen on images 244 through 327. This favors a jejunal loop. This could be due to ischemia given the suggestive progressive venous thrombosis. There is also slight progression of the moderate ascites. The bladder is unremarkable. Calcified uterine masses are again noted. No evidence for bowel obstruction. Moderate well-formed stool seen throughout the colon. Multiple venous collaterals seen within the abdomen. No retroperitoneal lymphadenopathy. IMPRESSION: 1. There is suggestion of progressive thrombosis of the majority of the superior mesenteric vein and its branches. 2. There is moderate to severe bowel wall thickening involving a long segment of small bowel within the left side the abdomen consistent with a nonspecific enteritis. However, given the suspected findings of progressive superior mesenteric vein thrombosis at this location, this favors ischemia as the underlying etiology. An infectious or inflammatory process could also have a similar appearance. 3. The small left pleural effusion and ascites have slightly progressed. 4. Pulmonary metastatic disease is again noted. 5. 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 The spleen has decreased in size. 6. Additional findings as described above. Impression Assessment and Plan 72F with a PMHx of metastatic cholangiocarcinoma with esophageal varices and liver cirrhosis 2/2 chronic Hep C p/w a half day history of severe abdominal pain - the worst pain of her life. CT favored bowel ischemia as a cause of the pain but a STAT RAD read of an US of the mesenteric arteries revealed that they were all patent. Abdominal Pain Unclear Etiology, Constipation vs Ascites vs Pain from recent splenic artery embolism. Third admission for abdominal pain, appears that the pain has resolved with bowel movements and paracentesis. GI in board (Dr. Rebolledo sees as outpatient) - appreciate input on source of pain. Heme / Onc Consulted (Dr. Amaya seen as outpatient) - chemotherapy was stopped due to myelosuppression. Ordered a Paracentesis with fluid cytology, fluid gram stain and culture. (Per Radiology this does not get done on Tuesday unless the hospitalist speaks withe the radiologist) Pain control with Ultram 50mg Q4H PRN + Dilaudid 0.5mg Q2H PRN. Miralax + Lactulose for constipation. Zofran for nausea. 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 Not a candidate for AC due to previous esophageal varices. Appreciate GI Recs. Elevated Trops (0.05) This appears to be the patient's baseline. Will not trend. GERD Pantoprazole 40mg PO daily. Dispo- Son is visiting from [place] - he stated he was a physician, although it' s unclear if he's a resident or still a med student. Hospice has been discussed with the patient - this is worse having another discussion. Admit to Med Surg, Full Diet. DNR - confirmed with son and patient. Attending addendum: I have physically seen this patient, have supervised the medical residents activities, and agree with the H&P unless as otherwise noted. Assessment and Plan: Abdominal pain/metastatic cholangiocarcinoma/chronic hepatitis C/liver cirrhosis /splenic infarction status post embolization/progressive superior mesenteric vein thrombosis/ascites-- The patient will be admitted to the medical surgical floor Her pain may be due to the underlying cholangiocarcinoma, splenic infarction, or pressure from ascites, or other. She did have 2 L removed via ultrasound-guided paracentesis with radiology on June 22 and had improvement in symptoms. Consult radiology for guided therapeutic paracentesis. If there is significant ascites developed in this short interval, she may benefit from placement of a catheter for drainage as an outpatient. Consult Dr. Rebolledo from GI. Consult Dr. Galeana her oncologist Dilaudid 0.5 mg IV every 2 hours when necessary Bowel prep with MiraLAX and lactulose Zofran for nausea Continue with Lasix, Aldactone and nadolol Progressive thrombosis of superior mesenteric vein and branches-- She was deemed to not be a candidate for anticoagulation when she had recent banding of esophageal varices Radiology brought up the concern for possible ischemic involvement of small bowel enteritis, however, mesenteric Dopplers were negative. We'll get the opinion of Dr. Rebolledo and Dr. Galeana. GERD-- Continue pantoprazole Longer-term disposition-- Discussion has been made with patient at last hospitalization from May 26 through May 31 regarding consideration for palliative care and hospice. Further conversation in this regard should be considered Consult protective services social worker Level of Care Med/Surg Advanced Directives Existing Advance Directive: Yes Existing Living Will: Yes Existing Power of Clerical Dentist Assistant: Yes Resuscitation Status DO NOT RESUSCITATE VTE Prophylaxis VTE Risk Assessment Done? Y/N: Yes Risk Level: High Given or contraindicated: SCD's, Contraindicated Social Service Consult Cancer Patient Under [place] Resident Involvement: Resident Care Provided Care Provided: Adult Hospital Medicine
[2017-07-03] MEDS ORDERED: HYDROmorphone INJ 0.5 MG/0.5 ML SYR IV PRN (03:45)
[2017-07-03] MEDS ORDERED: POLYETHYLENE (MIRALAX) 17 GM PACK PO PRN (03:45)
[2017-07-03] MEDS ORDERED: TRAMADOL HCL 50 MG TAB PO PRN (03:45)
[2017-07-03] MEDS ORDERED: ALUMINUM/MAGNESIUM/SIMETH (MAALOX MAX) 30 ML UDC PO PRN (03:45)
[2017-07-03] MEDS ORDERED: MAGNESIUM HYDROXIDE SUSP 30 ML UDC PO PRN (03:45)
[2017-07-03] MEDS ORDERED: ACETAMINOPHEN 325 MG TAB PO PRN (03:45)
[2017-07-03] MEDS ORDERED: NON-FORMULARY MEDICATION (Polyethylene Glycol 3350 (Miralax) 17 GM) PO PRN (03:45)
[2017-07-03] MEDS ORDERED: ZOLPIDEM TARTRATE 5 MG TAB PO PRN ×2 (03:45)
[2017-07-03] MEDS ORDERED: ONDANSETRON 4MG OD TAB PO PRN (04:15)
[2017-07-03] MEDS ORDERED: LACTULOSE SYRUP 30 GM/45 ML UDP PO PRN (04:15)
[2017-07-03 04:20] VITALS: BP 116/80; PULSE 91; TEMP 36.9; O2SAT 94; Ht 157.5 cm; Wt 77.9 kg
[2017-07-03] MEDS: ONDANSETRON INJ 2 MG/ML 2 ML VIAL IV PRN ×3 (05:24→14:51)
--- NOTE | 2017-07-03 05:27 | EMERGENCY ROOM VISIT NOTE ---
History First contact with patient: 21:50 Chief Complaint: ABDOMINAL PAIN Stated Complaint: ABDOMINAL PAIN History of Present Illness The patient is a 72 year old female who presents to the Emergency Room with complaints of generalized abdominal pain that she rates a 10/10. The patient states that she has never had pain this severe in the past. Her symptoms began slowly worsening over the course of today. She has a significant medical history of ascending cholangitis, cholangiocarcinoma, hepatitis C, and metastatic cancer. The patient was last admitted to this facility about one month ago for a possible venous thrombosis. The patient states that she has had or chills. She is now vomiting, and had active emesis in triage. The patient is not having difficulty using the bathroom. No chest pain, chest tightness, or shortness of breath. She has not taken anything [id number] for her symptoms. She is accompanied by family who assists in the history. Review of Systems More than 10 systems were reviewed and otherwise negative with the exception of history of present illness. Past Medical/Surgical History Medical Problems: (1) Abdominal pain (2) Ascending cholangitis (3) Hepatitis C (4) Jaundice Family History FHx: cancer Social History Smoking Status: Former Smoker Drug Use: none Marital Status: Housing Status: lives with family Occupation Status: employed Current/Historical Medications Scheduled Calcium/Vitamin D (Os-Alexis 500 Plus D), 1 TAB PO BID Docusate Sodium (Docusate Sodium), 100 MG PO BID Furosemide (Lasix), 40 MG PO QAM Multivitamins/Minerals (Mvi With Minerals), 1 TAB PO QAM Nadolol (Corgard), 20 MG PO QPM Omeprazole (Prilosec), 20 MG PO QAM Spironolactone (Aldactone), 50 MG PO BID Scheduled PRN Polyethylene Glycol 3350 (Miralax), 17 GM PO DAILY PRN for Constipation Tramadol (Ultram), 50 MG PO Q4H PRN for Pain Physical Exam Vital Signs Date Time Temp Pulse Resp B/P (MAP) Pulse Ox O2 Delivery O2 Flow Rate FiO2 07/03/17 03:08 94 20 112/64 93 Room Air 07/03/17 02:02 87 07/03/17 01:48 89 18 108/67 91 Room Air 07/03/17 01:27 78 18 125/70 98 Room Air 12/16/17 23:44 87 18 105/61 96 Room Air 07/02/17 22:05 83 07/02/17 22:02 95 Room Air 07/02/17 21:44 36.7 68 18 99/63 100 Room Air Physical Exam VITALS: Vitals are noted on the nurse's note and reviewed by myself. Vital signs stable. GENERAL: Elderly-appearing female who is in moderate to severe discomfort secondary to her stated complaint. She is splinting her abdomen with her right hand. She is dry heaving and appears unwell. HEART: Regular rate with systolic murmur LUNGS: Clear to auscultation bilaterally without wheezes, rales or rhonchi. No retractions or accessory muscle use. ABDOMEN: Positive normal bowel sounds x 4. Soft with diffuse tenderness that appears to be slightly worse on the right side abdomen than the left MUSCULOSKELETAL: Lower extremity 2+ edema noted NEURO: Patient was alert and oriented to person place and time. CN II through XII grossly intact. Medical Decision & Procedures ER Provider Diagnostic Interpretation: ABDOMEN AND PELVIS CT WITHOUT CONTRAST CT DOSE: 462.57 mGy.cm HISTORY: Generalized abdominal pain. Nausea. Vomiting. TECHNIQUE: Multiaxial CT images of the abdomen and pelvis were performed without contrast. A dose lowering technique was utilized adhering to the principles of ALARA. COMPARISON STUDY: Abdomen and pelvis CT 05/20/2017. FINDINGS: Small left pleural effusion has increased in size. Left lower lobe consolidation has also progressed. Left basilar patchy densities likely represent atelectasis from the pleural fluid. A pneumonia could also have a similar appearance. Again noted are multiple bilateral pulmonary nodules. Dominant nodule within the right lower lobe measures 1.6 cm. These are similar to the prior study. No pneumoperitoneum. No pneumatosis. No suspicious lytic or blastic osseous lesions. Near diffuse hypodensity within the spleen persists and is consistent with a large splenic infarct. The spleen has slightly decreased in size. Cirrhotic liver with intrahepatic bile duct dilatation most pronounced on the left. Portal vein thrombosis is not well visualized due to the lack of intravenous contrast. Mild distended gallbladder. The unenhanced pancreas and kidneys are unremarkable. There appears to be increase in diameter of the superior mesenteric vein which measures 2 cm. This suggests progressive thrombosis. There is progressive edema along the mesenteric veins within the left side the abdomen. The mesenteric veins at this location also demonstrate slight increased density. This is also suggests extensive thrombus within the branches of the mesenteric veins. There is also a long segment of bowel wall thickening of small bowel within the left side the abdomen best seen on images 244 through 327. This favors a jejunal loop. This could be due to ischemia given the suggestive progressive venous thrombosis. There is also slight progression of the moderate ascites. The bladder is unremarkable. Calcified uterine masses are again noted. No evidence for bowel obstruction. Moderate well-formed stool seen throughout the colon. Multiple venous collaterals seen within the abdomen. No retroperitoneal lymphadenopathy. IMPRESSION: 1. There is suggestion of progressive thrombosis of the majority of the superior mesenteric vein and its branches. 2. There is moderate to severe bowel wall thickening involving a long segment of small bowel within the left side the abdomen consistent with a nonspecific enteritis. However, given the suspected findings of progressive superior mesenteric vein thrombosis at this location, this favors ischemia as the underlying etiology. An infectious or inflammatory process could also have a similar appearance. 3. The small left pleural effusion and ascites have slightly progressed. 4. Pulmonary metastatic disease is again noted. 5. 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 The spleen has decreased in size. 6. Additional findings as described above. Preliminary Findings Only See Final Report For Complete Findings US OTHER - DUPLEX MESENTERIC: No evidence of hemodynamically significant luminal stenosis regarding the proximal celiac artery or SMA distal SMA obscured by overlying bowel gas. GAVIN not profiled. Preliminary Findings Only See Final Report For Complete Findings US RUQ: Cirrhotic appearance of liver with superimposed ascites. Main portal vein remains patent. Gallbladder wall edema noted with luminal sludge; common bile duct measures 6 mm. Intrahepatic ductal dilatation suggested in the left lobe. No hydronephrosis right kidney. Pancreas obscured by overlying bowel gas Laboratory Results 07/02/17 22:05 Red Blood Count 4.36, Mean Corpuscular Volume 96.8, Mean Corpuscular Hemoglobin 32.3, Mean Corpuscular Hemoglobin Concent 33.4, Mean Platelet Volume 10.1, Neutrophils (%) (Auto) 70.0, Lymphocytes (%) (Auto) 9.7, Monocytes (%) (Auto) 18.0, Eosinophils (%) (Auto) 1.1, Basophils (%) (Auto) 0.4, Neutrophils # (Auto ) 8.90, Lymphocytes # (Auto) 1.23, Monocytes # (Auto) 2.29, Eosinophils # (Auto ) 0.14, Basophils # (Auto) 0.05 07/02/17 22:05 Test 07/02/17 22:05 07/02/17 22:08 07/02/17 23:29 White Blood Count 12.71 K/uL (4.8-10.8) Red Blood Count 4.36 M/uL (4.2-5.4) Hemoglobin 14.1 g/dL (12.0-16.0) Hematocrit 42.2 % (37-47) Mean Corpuscular Volume 96.8 fL (80-100) Mean Corpuscular Hemoglobin 32.3 pg (25-34) Mean Corpuscular Hemoglobin Concent 33.4 g/dl (32-36) Platelet Count 116 K/uL (130-400) Mean Platelet Volume 10.1 fL (7.4-10.4) Neutrophils (%) (Auto) 70.0 % Lymphocytes (%) (Auto) 9.7 % Monocytes (%) (Auto) 18.0 % Eosinophils (%) (Auto) 1.1 % Basophils (%) (Auto) 0.4 % Neutrophils # (Auto) 8.90 K/uL (1.4-6.5) Lymphocytes # (Auto) 1.23 K/uL (1.2-3.4) Monocytes # (Auto) 2.29 K/uL (0.11-0.59) Eosinophils # (Auto) 0.14 K/uL (0-0.5) Basophils # (Auto) 0.05 K/uL (0-0.2) RDW Standard Deviation 53.7 fL (36.4-46.3) RDW Coefficient of Variation 15.4 % (11.5-14.5) Immature Granulocyte % (Auto) 0.8 % Immature Granulocyte # (Auto) 0.10 K/uL (0.00-0.02) Anion Gap 5.0 mmol/L (3-11) Est Creatinine Clear Calc Drug Dose 73.1 ml/min Estimated GFR () 102.2 Estimated GFR (Non- 88.2 BUN/Creatinine Ratio 24.9 (10-20) Calcium Level 8.6 mg/dl (8.5-10.1) Total Bilirubin 2.3 mg/dl (0.2-1) Aspartate Amino Transf (AST/SGOT) 150 U/L (15-37) Alanine Aminotransferase (ALT/SGPT) 87 U/L (12-78) Alkaline Phosphatase 126 U/L (45-117) Total Protein 7.4 gm/dl (6.4-8.2) Albumin 1.9 gm/dl (3.4-5.0) Globulin 5.5 gm/dl (2.5-4.0) Albumin/Globulin Ratio 0.3 (0.9-2) Lipase 134 U/L (73-393) Bedside Troponin I 0.050 ng/ml (0-0.045) Lactic Acid Level 1.6 mmol/L (0.4-2.0) Medications Administered Medications (Trade) Dose Ordered Sig/Tigist Route Start Time Stop Time Status Last Admin Dose Admin Sodium Chloride 1,000 ml @ 999 mls/hr Q1H1M ONCE IV 07/02/17 22:00 07/02/17 23:00 DC 07/02/17 22:00 999 MLS/HR Morphine Sulfate (MoRPHine SULFATE INJ) 4 mg NOW ONCE IV 07/02/17 22:00 07/02/17 22:01 DC 07/02/17 22:04 4 MG Ondansetron HCl (Zofran Inj) 4 mg NOW STAT IV 07/02/17 21:55 07/02/17 21:57 DC 07/02/17 22:04 4 MG Hydromorphone HCl (Dilaudid Inj) 0.5 mg NOW STAT IV 07/02/17 22:53 07/02/17 22:54 DC 07/02/17 22:57 0.5 MG ED Course Physical exam and history were performed. Nursing notes, EMR, and Medication List were personally reviewed. Patient appears to have acute onset abdominal pain that she describes as the worst she has ever had. The patient appears very uncomfortable on examination. IV access was established and labs were obtained. The patient was hydrated and medicated as above. She was sent to CT scan emergently as her symptoms and presentation was very concerning. The case was discussed with my attending physician, Dr. Choudhury, who also remain closely involved in care and decision making. The patient's blood work is as above and was reviewed. She does have a slightly elevated white blood cell count of 12.7. She does not have a significant anemia or bandemia. Transaminases are elevated, however this appears chronic. She also has a slightly elevated troponin, but this is not significantly different from her baseline. Her EKG is nonischemic. The patient 's lactic acid is negative. Blood cultures are pending. CT scan of the abdomen and pelvis is as above, and there appears to be increase clot in the superior mesenteric vein. There is also bowel wall thickening, and this does raise concern for the possibility of ischemic colitis versus other etiology. I did elect to perform both liver and mesenteric ultrasound. The mesenteric ultrasound shows patency of the superior mesenteric artery, which was the most concerning part of the patient's presentation. Liver ultrasound is as above. I had a very lengthy conversation with the family, spending greater than 45 minutes in total discussing options of care. The patient is very ill and is approaching end-of-life. She does not yet wish to be a hospice patient, however I feel this is imminent. I explained full options of care to the family , and at this point they are not comfortable taking her home tonight, as she lives at home with her who is also elderly. The patient herself feels much more comfortable after pain and nausea medication, but does indicate a preference to be admitted to the facility. I discussed the case with the on- call [facility] hospitalist who agreed to evaluate the patient here in the department. Please see their dictation for further patient course, plan, and disposition. The chart was completed utilizing [employer] Speech Voice Recognition Software. Grammatical errors, random word insertions, pronoun errors, and incomplete sentences are an occasional consequence of this system due to software limitations, ambient noise, and hardware issues. Any formal questions or concerns about the content, text, or information contained within the body of this dictation should be directly addressed to the provider for clarification. . Medical Decision Differential diagnosis: Etiologies such as appendicitis, diverticulitis, PUD, biliary pathology, UTI, pancreatitis, obstruction, mesenteric ischemia, aortic pathology, infections, inflammatory bowel disease, renal colic, as well as others were entertained. Impression Primary Impression: Abdominal pain Departure Information Dispostion Still a Patient Condition FAIR Referrals Sheng Lopez M.D. (PCP) Forms Call Back Authorization, HOME CARE DOCUMENTATION FORM, IMPORTANT VISIT INFORMATION Patient Instructions My [facility]
--- NOTE | 2017-07-03 05:32 | DIAGNOSTIC IMAGING REPORT ---
(LIVER) ABDOMEN LIMITED CLINICAL HISTORY: 72 years-old Female presenting with Right side abd pain. TECHNIQUE: Real-time grayscale and limited color and spectral Doppler ultrasound imaging of the abdomen limited to the right upper quadrant was performed. COMPARISON: CT performed on 07/02/2017. FINDINGS: Pancreas: Largely obscured due to overlying bowel gas. Liver: Nodular contour with hyperechogenic parenchyma and heterogeneous echotexture, consistent with cirrhosis. The liver measures 18 cm in maximal sagittal dimension. No sonographic evidence of hepatic mass. Main portal vein patent with normal directional flow with normal gentle undulating waveforms and peak velocity of 10 to 15 cm/s. Biliary: There is intrahepatic biliary ductal dilatation within the left lobe. Common bile duct measures up to 6 mm in diameter. Gallbladder: Gallbladder sludge noted. Minimal gallbladder wall thickening is nonspecific. No gallstones, pericholecystic fluid or inflammatory change. Right kidney: Normal in appearance. No hydronephrosis. Ascites: Small volume ascites. IMPRESSION: 1. Cirrhosis. 2. The main portal vein is patent with normal directional flow and velocity. 3. Small volume ascites. 4. Left intrahepatic biliary ductal dilatation. A central obstructing mass is not excluded. Electronically signed by: Laurent Thornton M.D. 07/03/2017 5:31 AM Dictated Date/Time: 07/03/2017 5:26 AM
--- NOTE | 2017-07-03 06:37 | DIAGNOSTIC IMAGING REPORT ---
DUPLEX MESENTERIC CLINICAL HISTORY: 72 years-old Female presenting with Possible mesenteric ischemia. TECHNIQUE: Real-time grayscale and color and spectral Doppler ultrasound imaging of the aorta and mesenteric vessels was performed. COMPARISON: Noncontrast CT from 07/02/2017. FINDINGS: The examination was limited due to mobility of the patient perform deep inspiration as well as overlying bowel gas and abdominal tenderness. Aorta: Patent. Normal waveforms. Peak systolic velocity 63 cm/s. Celiac axis: Patent. Normal waveforms. Peak systolic velocity 63 cm/s. Hepatic artery: Not visualized. Splenic artery: Not visualized. Superior mesenteric artery: Patent. Normal waveforms. Peak systolic velocity 101 cm/s. Inferior mesenteric artery: Not visualized. Venous structures were not evaluated. Reference ranges: Celiac artery: PSV ? 240 cm/s suggests stenosis ? 50%; PSV ? 320 cm/s suggests stenosis ? 70%. Superior mesenteric artery: PSV ? 295 cm/s suggests stenosis ? 50%; PSV ? 400 cm/s suggests stenosis ? 70%. IMPRESSION: 1. Patent proximal abdominal aorta and branch vessels. 2. The venous structures were not evaluated. The previously suggested superior mesenteric venous thrombus could be assessed with subsequent venous Doppler ultrasound of the abdomen. Electronically signed by: Laurent Thornton M.D. 07/03/2017 6:36 AM Dictated Date/Time: 07/03/2017 6:33 AM
[2017-07-03 07:27] VITALS: BP 108/71; PULSE 97; TEMP 36.7; O2SAT 96
[2017-07-03] MEDS ORDERED: PANTOprazole SOD 40 MG TAB PO SCH (08:00)
[2017-07-03] MEDS ORDERED: FUROSEMIDE 40 MG TAB PO SCH (08:00)
[2017-07-03] MEDS ORDERED: SPIRONOLACTONE 25 MG TAB PO SCH (09:00)
[2017-07-03] MEDS ORDERED: HYDROmorphone INJ 1 MG/ML SYR IV PRN (11:15)
[2017-07-03] MEDS ORDERED: ENOXAPARIN 1 MG/KG SQ SCH (11:15)
--- NOTE | 2017-07-03 11:41 | Discharge Instructions ---
Discharge Instructions Date of Service Jul 03, 2017. Admission Reason for Admission: Abdominal Pain Discharge Discharge Diagnosis / Problem: Possible Small Bowel Ischemia Discharge Goals Goal(s): Decrease discomfort, Improve function, Increase independence Activity Recommendations Activity Level: Assistance Required . Additional Information Patient informed of condition: Yes Advance Directives: Yes DNR: Yes Level of Care: Other Communicable Disease: No Prognosis: Stable Instructions / Follow-Up Instructions / Follow-Up Abdominal Pain with Suggestion of Ischemic Small Bowel: - Patient has extensive history of metastatic cholangiocarcinoma (treated with chemo/radiation - November-Apr 2016) with mets to lung and peritoneum; splenic artery embolization Apr 2017; portal vein thrombosis; chronic Hep C treated with interferon in the past - CT Abd/Pelvis - progressive thrombosis of majority of superior mesenteric vein and branches with mod-severe wall thickening suggesting possible ischemic bowel - Does receive therapeutic paracentesis - CT suggests some progression of ascites - Currently vomiting bile emesis - placed NGT for comfort - LFTs chronically elevated and ammonia at 73 - she is alert and oriented but sluggish and likely related to the hyperammonemia - Does have esophageal varices and on previous admission anticoagulation on hold due to platelets at 28. Platelets improved to 116 and will start Lovenox 1 mg/kg BID pending changes when arriving to [facility] [place] - Fluids of 1/2 NSS + 20 mEq KCL at 75 mL/hr with Dilaudid 1 mg IV Q2H and PRN Lactulose and Miralax ordered in ED - Med reconciliation is of home medications - could hold diuretics with fluid replacement - Hospice/Palliative care bridged in the past and discussed with patient today - she understands that a possible surgical intervention may be needed and does want to have any and all interventions done at this time - Patient sees Dr. Fawn Houser as her GI specialist - Discussed with on-call Onc Surgeon - Dr. Costello and will transfer to [facility] [place] Chronic Elevated Trops: - Baseline around 0.05 and no ischemic changes on EKG or c/o CP Code Status: DO NOT RESUSCITATE Current Hospital Diet Patient's current hospital diet: AHA Diet (Heart Healthy) Discharge Diet Recommended Diet: AHA Diet (Heart Healthy) Pending Studies Studies pending at discharge: no Medical Emergencies . Who to Call and When: Medical Emergencies: If at any time you feel your situation is an emergency, please call 911 immediately. . Non-Emergent Contact Non-Emergency issues call your: Primary Care Provider . . "Provider Documentation" section prepared by Yolanda Duenas. . Core Measure Problem Core Measures: None
[2017-07-03] MEDS ORDERED: SODIUM CHLOR 0.45% + 20MEQ KCL 1,000 ML IV SCH (11:45)
[2017-07-03] MEDS ORDERED: ENOXAPARIN 80 MG/0.8 ML SYR SQ SCH (12:00)
[2017-07-03 12:06] LABS: INR 1.4 (0.9-1.1); PROTHROMBIN TIME (PATIENT) 14.8 SECONDS (9.0-12.0)
--- NOTE | 2017-07-03 12:21 | Oncology Consultation ---
Oncology/Heme Consultation Date of Consultation: Jul 03, 2017. Attending Physician: Sebas Yee D.O. Reason for Consultation: Treated metastatic cholangiocarcinoma History of Present Illness Ms. Crespo is a 72-year-old female with a history of hepatitis C dating back to the 1990s. She also has findings consistent with cirrhosis on imaging. In September 2015 she had presented with symptoms of possible cholangitis. MRCP would reveal a left intrahepatic ductal dilatation and a subsequent diagnostic workup at [facility] with an FNAs revealed atypical glandular cells suspicious for adenocarcinoma. She underwent an attempt at left hepatectomy at [facility]. The procedure was aborted because a definite lesion was not identified in her left hepatic lobe. A wedge biopsy of the liver was obtained and revealed cirrhosis but no evidence of malignancy. October 2015 there are 1.9 cm soft tissue mass was noted in the bryson hepatis with severe narrowing of the left branch of the portal vein. There were clusters of mildly enlarged gastrohepatic celiac and retroperitoneal lymph nodes. In November 2015 she underwent an FNA of the liver and biopsies obtained from the left lobe of the liver were consistent with mucinous cytoplasm and focal gland formation highly suspicious for adenocarcinoma. Consultation at [facility] discussed possible resection however because of her underlying cirrhosis it was felt she was not a surgical candidate. December 2015 she was started on gemcitabine and cisplatin and received 2 cycles but the treatment had to be aborted due to persistent cytopenias. In February 2016 she began concurrent chemoradiation with Xeloda again there were issues with thrombocytopenia and she only received about 2 weeks of Xeloda during the course of radiation. She finished radiation in March 2016. By June 2016 multiple subcentimeter lung nodules were noted. She was observed for several serial scans for most of 2016 and had slowly progressive but asymptomatic small-volume metastatic disease. She did have splenic embolization in attempt to improve her platelets prior to chemotherapy and this occurred. in April 2017. An abdominal ultrasound in May of this year revealed new portal venous thrombosis she was initially anticoagulated but heparin was held due to worsening esophageal varices.. Apparently these variceswere banded during her recent hospital stay. She was admitted now with rather abrupt severe abdominal pain midepigastric area with CT scan evidence of progressive from mesenteric thrombosis underlying probables small bowel ischemia. She denies any fever or obvious bleeding altjough emesis is dark brown. Past Medical/Surgical History Medical Problems: (1) Abdominal discomfort Status: Acute (2) Ascites Status: Acute (3) Atelectasis of left lung Status: Acute (4) Constipation Status: Acute (5) Elevated troponin I level Status: Acute (6) Hyponatremia Status: Acute (7) Intractable abdominal pain Status: Acute (8) Portal vein thrombosis Status: Acute Family History FHx: cancer Social History Smoking Status: Former Smoker Smokeless Tobacco Use: No Alcohol Use: none Drug Use: none Marital Status: Housing Status: lives with family Occupation Status: employed Allergies Coded Allergies: Clam (Verified Allergy, Severe, ANAPHYLAXIS, 05/26/17) Iodinated Diagnostic Agents (Verified Allergy, Mild, SNEEZING, ITCHY NOSE , 05/26/17) Home Medications Scheduled Calcium/Vitamin D (Os-Alexis 500 Plus D), 1 TAB PO BID Docusate Sodium (Docusate Sodium), 100 MG PO BID Furosemide (Lasix), 40 MG PO QAM Multivitamins/Minerals (Mvi With Minerals), 1 TAB PO QAM Nadolol (Corgard), 20 MG PO QPM Omeprazole (Prilosec), 20 MG PO QAM Spironolactone (Aldactone), 50 MG PO BID Scheduled PRN Polyethylene Glycol 3350 (Miralax), 17 GM PO DAILY PRN for Constipation Tramadol (Ultram), 50 MG PO Q4H PRN for Pain Current Inpatient Medications Current Inpatient Medications Medications (Trade) Dose Ordered Sig/Tigist Route Start Time Stop Time Status Last Admin Dose Admin Acetaminophen (Tylenol Tab) 650 mg Q4H PRN PO 07/03/17 03:45 08/02/17 03:44 Al Hydrox/Mg Hydrox/Simethicone (Maalox Max Susp) 15 ml Q4H PRN PO 07/03/17 03:45 08/02/17 03:44 Magnesium Hydroxide (Milk Of Magnesia Susp) 30 ml Q6H PRN PO 07/03/17 03:45 08/02/17 03:44 Polyethylene (Miralax Powder Packet) 17 gm DAILY PRN PO 07/03/17 03:45 08/02/17 03:44 Zolpidem Tartrate (Ambien Tab) 5 mg HSZ PRN PO 07/03/17 03:45 08/02/17 03:44 Ondansetron HCl (Zofran Inj) 4 mg Q6H PRN IV 07/03/17 03:45 08/02/17 03:44 07/03/17 09:12 4 MG Furosemide (Lasix Tab) 40 mg QAM PO 07/03/17 08:00 08/02/17 08:59 Nadolol (Corgard Tab) 20 mg QPM PO 07/03/17 21:00 08/02/17 20:59 Tramadol HCl (Ultram Tab) 50 mg Q4H PRN PO 07/03/17 03:45 08/02/17 03:44 Pantoprazole Sodium (Protonix Tab) 40 mg QAM PO 07/03/17 08:00 08/02/17 07:59 Spironolactone (Aldactone Tab) 50 mg BID17 PO 07/03/17 09:00 08/02/17 08:59 Ondansetron HCl (Zofran Odt) 4 mg Q6H PRN PO 07/03/17 04:15 08/02/17 04:14 Lactulose (Chronulac Syrup) 30 gm DAILY PRN PO 07/03/17 04:15 08/02/17 04:14 Hydromorphone HCl (Dilaudid Inj) 1 mg Q2H PRN IV 07/03/17 11:15 07/17/17 03:44 07/03/17 12:05 1 MG Enoxaparin Sodium (Lovenox Inj) 80 mg Q12 SQ 07/03/17 12:00 08/02/17 11:59 Potassium Chloride/Sodium Chloride 1,000 ml @ 75 mls/hr [id number] IV 07/03/17 11:45 08/02/17 11:44 07/03/17 12:01 75 MLS/HR Review of Systems Constitutional: Negative for weight loss, night sweats, or fever Eyes: Negative for event change of vision ENT: Negative for epistaxis, nasal discharge, sore throat, or deafness Cardiovascular: Negative for chest pain, palpitations, dizziness, diaphoresis Respiratory: Negative for new shortness of breath,hemoptysis, or purulent cough Gastrointestinal: Positive for abdominal pain along with nausea and vomiting Integumentary (skin): Negative for rash or jaundice discoloration Genitourinary: Negative for urinary frequency, hematuria, or dysuria Neurological: Negative for weakness, seizure activity, headache, or dizziness Lymphatic/Hematologic: Negative for petechiae, bleeding or new adenopathy Musculoskeletal: Negative for new joint or back pain Allergic/Immunologic: Negative for unusual rash or pruritis. Physical Exam Date Time Temp Pulse Resp B/P (MAP) Pulse Ox O2 Delivery O2 Flow Rate FiO2 07/03/17 07:27 36.7 97 18 108/71 (83) 96 Nasal Cannula 1.0 07/03/17 04:20 36.9 91 18 116/80 94 Nasal Cannula 1.0 07/03/17 04:05 87 18 104/62 07/03/17 03:08 94 20 112/64 93 Room Air 07/03/17 02:02 87 07/03/17 01:48 89 18 108/67 91 Room Air 07/03/17 01:27 78 18 125/70 98 Room Air 07/02/17 23:44 87 18 105/61 96 Room Air 07/02/17 22:05 83 07/02/17 22:02 95 Room Air 07/02/17 21:44 36.7 68 18 99/63 100 Room Air Constitutional: vitals are stable. very uncomfortable due to abdominal pain. Eyes: Eyes are CLEMENTINE EOMI without conjuctival erythema or icterus. ENT: External examination was negative for masses. Neck: Negative for masses or palpable thyromegaly Respiratory: Lung sounds were generally clear bilaterally Cardiovascular: Heart was RRR without significant murmur, gallops aoe rubs Gastrointestinal: No palpable hepatic or splenomegaly. The abdomen was distended with decreased bowel sounds. Lymphatic system: there was no palpable peripheral lymphadenopathy Musculoskeletal System: The musculoskeletal system seemed concordant with age. Skin: The skin was negative for jaundice. Neurologic exam: The exam was negative for any focal findings. Deep tendon reflexes were equal and symmetrical. Psychiatric exam: Was essentially negative with normal mood and effect. Breast exam: Not done Extremities: without edema Laboratory Results Last 24 Hours Test 07/02/17 22:05 07/02/17 22:08 07/02/17 23:29 07/03/17 08:54 White Blood Count 12.71 K/uL Red Blood Count 4.36 M/uL Hemoglobin 14.1 g/dL Hematocrit 42.2 % Mean Corpuscular Volume 96.8 fL Mean Corpuscular Hemoglobin 32.3 pg Mean Corpuscular Hemoglobin Concent 33.4 g/dl Platelet Count 116 K/uL Mean Platelet Volume 10.1 fL Neutrophils (%) (Auto) 70.0 % Lymphocytes (%) (Auto) 9.7 % Monocytes (%) (Auto) 18.0 % Eosinophils (%) (Auto) 1.1 % Basophils (%) (Auto) 0.4 % Neutrophils # (Auto) 8.90 K/uL Lymphocytes # (Auto) 1.23 K/uL Monocytes # (Auto) 2.29 K/uL Eosinophils # (Auto) 0.14 K/uL Basophils # (Auto) 0.05 K/uL RDW Standard Deviation 53.7 fL RDW Coefficient of Variation 15.4 % Immature Granulocyte % (Auto) 0.8 % Immature Granulocyte # (Auto) 0.10 K/uL Sodium Level 130 mmol/L Potassium Level 4.7 mmol/L Chloride Level 97 mmol/L Carbon Dioxide Level 28 mmol/L Anion Gap 5.0 mmol/L Blood Urea Nitrogen 17 mg/dl Creatinine 0.69 mg/dl Est Creatinine Clear Calc Drug Dose 73.1 ml/min Estimated GFR () 102.2 Estimated GFR (Non- 88.2 BUN/Creatinine Ratio 24.9 Random Glucose 125 mg/dl Calcium Level 8.6 mg/dl Total Bilirubin 2.3 mg/dl Aspartate Amino Transf (AST/SGOT) 150 U/L Alanine Aminotransferase (ALT/SGPT) 87 U/L Alkaline Phosphatase 126 U/L Total Protein 7.4 gm/dl Albumin 1.9 gm/dl Globulin 5.5 gm/dl Albumin/Globulin Ratio 0.3 Lipase 134 U/L Bedside Troponin I 0.050 ng/ml Lactic Acid Level 1.6 mmol/L Ammonia 73.9 umol/L Test 07/03/17 11:48 Assessment & Plan Metastatic cholangiocarcinoma Last night's CT suggested worsening mesenteric venous thrombosis with resultant small bowel edema. There have been converstions with the patient and she would like to pursue a surgical procedure if possible I understand calls have been placed for transfer to [facility]. PT and PTT prolonged and will need product support (FFP) of course around, during and after any surgical procedure.
--- NOTE | 2017-07-03 13:28 | Discharge Summary ---
Discharge Summary Date of Service Jul 03, 2017. Discharge Summary Admission Date: Jul 03, 2017 at 03:42 Discharge Date: Jul 03, 2017 Discharge Disposition: Acute care facility Principal Diagnosis: Possible Small Bowel Ischemia Problems/Secondary Diagnoses: 1. Metastatic Cholangiocarcinoma 2. Portal Vein Thrombosis 3. Cirrhosis with Chronic Hep C 4. Esophageal Varices 5. Splenic Infarct 6. Splenic Artery Embolization (Apr 2017) 7. Thrombocytopenia Immunizations: Have You Had Influenza Vaccine: Yes Influenza Vaccine Date: May 05, 2015 History of Tetanus Vaccine?: Yes History of Pneumococcal: Unknown History of Hepatitis B Vaccine: Unknown Consultations: 1. Gastroenterology 2. Oncology Medication Reconciliation Continued Medications: Calcium/Vitamin D (Os-Alexis 500 Plus D) Tab 1 TAB PO BID, TAB Docusate Sodium (Docusate Sodium) 100 Mg Cap 100 MG PO BID, CAP Furosemide (Lasix) 40 Mg Tab 40 MG PO QAM, TAB Multivitamins/Minerals (Mvi With Minerals) Tab 1 TAB PO QAM, TAB Nadolol (Corgard) 20 Mg Tab 20 MG PO QPM Omeprazole (Prilosec) 20 Mg Capcr 20 MG PO QAM, CAP Polyethylene Glycol 3350 (Miralax) 1 Pow Pow 17 GM PO DAILY PRN for Constipation Spironolactone (Aldactone) 50 Mg Tab 50 MG PO BID, TAB Tramadol (Ultram) 50 Mg Tab 50 MG PO Q4H PRN for Pain, TAB Discharge Exam Review of Systems: Constitutional: No fever, No chills Respiratory: No cough, No shortness of breath Cardiovascular: No chest pain, No palpitations Abdomen: + pain (L mid-lower abdomen), + nausea, + vomiting, No diarrhea, No constipation Musculoskeletal: No swelling, No calf pain Genitourinary - Female: No dysuria Physical Exam: General Appearance: no apparent distress, + pertinent finding (drowsy) ENT: hearing grossly normal Neck: supple, no JVD, trachea midline Respiratory/Chest: lungs clear, normal breath sounds, no respiratory distress, no accessory muscle use Cardiovascular: regular rate, rhythm, no gallop, no murmur Abdomen / GI: + tenderness, + abnormal bowel sounds (hypactive), + distended Extremities: no calf tenderness, no pedal edema Neurologic/Psychiatric: alert, oriented x 3, + pertinent finding (drowsy) Hospital Course ADMISSION: 72F with a PMHx of metastatic cholangiocarcinoma with portal vein thrombosis and esophageal varices, liver cirrhosis 2/2 chronic Hep C and splenic artery embolization p/w a half day history of severe abdominal pain - the worst pain of her life. Her last BM was two days ago and she has been intermittently vomiting. The patient describes the pain as constant and goes across her abdomen. Patient is somnolent during exam, son who is a physician was visiting from [place] for the holidays, helped with the history. He describes his mother's baseline as walking, taking care of her and doing regular activities of daily living. Patient and son are aware of the terminal condition of the patient and would like a DNR code status (confirmed separately with patient). Hospice care was broached with the patient and family at the last admission for abdominal pain however the pt wanted to see her son get which he did. From chart review there are several recent admissions for similar abdominal pain and the patient has received therapeutic paracentesis. Pt does not like to take PO pain medication because it constipates her. Patient has had thoracocentesis in the past most recently in early May that drained only 100cc of fluid. PMHx: Spontaneous Bacterial Peritonitis, Portal vein thrombosis, splenic artery embolization [facility] on 05/12/17 HOSPITAL COURSE: Ms. Crespo was admitted for suspected small bowel ischemia complicated by progressive thrombosis of the majority of the superior mesenteric vein and branches. CT Abd/Pelvis showed moderate to sever wall thickening that may be a non-specific enteritis but given progressive thrombosis ischemic bowel likely. Dr. Rebolledo evaluated patient and is concerned that this is more of an ischemic bowel picture and discussed with patient and family. Recommending transfer to [facility] for ongoing evaluation and care. She follows with Dr. Fawn Houser from GI. On previous admission, hospice/palliative care discussed but patient stating she would want all interventions done at this time but is a DNR. She is hemodynamically stable. LFTS and troponins stable and chronically elevated. Ammonia elevated at 73. Due to nausea/vomiting she was not able to take oral meds. She is having dark brown/bile-like emesis. She does have esophageal varices that were banded in May. Placed NGT with immediate return of 530 cc. Discussed with on-call oncology surgeon at [facility] and willing to accept transfer for ongoing evaluated. Does express concern for long- term outcome if surgical intervention necessary. Recommended anticoagulation and will place on therapeutic Lovenox 1 mg/kg BID at this time pending further intervention by [facility]. Oncology recommending since PT and PTT prolonged she would need product support (FFP) of course around, during and after any surgical procedure. HISTORY: - Hepatitis C (1990s) - treated with interferon in the past with findings of Cirrhosis - September 2015 - MRCP with L intrahepatic ductal dilatation and further workup revealed atypical glandular cells for adenocarcinoma - October 2015 - 1.9 cm soft tissue mass in bryson hepatis with severe narrowing of L branch of portal vein with clusters of gastrohepatic celiac and retroperitoneal lymph nodes - November 2015 - FNA of liver - mucinous cytoplasm and focal gland formation - suspicious for adenocarcinoma - December 2015 - 2 cycles of Gemcitabine and Cisplatin but stopped due to persistent cytopenias - February 2016 - Chemoradiation with Xeloda but continued cytopenias and radiation stopped MarchJune 2016 - lung nodules noted and evidence of metastasis - April 2017 - splenic embolization to improve platelets - May 2017 - new portal venous thrombosis and worsening esophageal varices - banding completed i personally examined pt and verified all diaz points w A Henrique PAC abdominal pain - appearing ischemic small bowel vitals noted abdomen distended no guarding ischemic bowel - for transfer to [facility] as she would like surgical interventions if warranted Total Time Spent: Greater than 30 minutes This includes examination of the patient, discharge planning, medication reconciliation, and communication with other providers. Discharge Instructions Please refer to the electronic Patient Visit Report (Discharge Instructions) for additional information. Additional Copies To Sheng Lopez M.D.
[2017-07-03] MEDS ORDERED: ENOXAPARIN 80 MG/0.8 ML SYR SQ ONE (14:30)
[2017-07-03 14:39] VITALS: BP 108/71; PULSE 97; TEMP 36.7; O2SAT 96
--- NOTE | 2017-07-03 15:21 | GASTROINTESTINAL CONSULTATION ---
DATE OF CONSULTATION: 07/03/2017 REASON FOR EVALUATION: Abdominal pain. HISTORY OF PRESENT ILLNESS: The patient is a 72-year-old with cholangiocarcinoma with metastatic disease. The patient also has underlying cirrhosis due to chronic hepatitis C. Her course has been complicated by esophageal varices and splenic artery embolism with splenic infarct. The patient was recently hospitalized and discharged only to return last night with severe pain throughout her abdomen, which is the worst pain she has had in her life. She is somewhat somnolent with an elevated ammonia level. The patient has been vomiting as well. On ultrasound and CT evaluation, her portal vein is patent, but her splenic vein is thrombosed. There is minimal ascites present. PAST MEDICAL HISTORY: Remarkable for hepatitis C, cholangiocarcinoma, and splenic infarct. MEDICATIONS: Per list. ALLERGIES: IODINE AND CLAMS. SOCIAL HISTORY: The patient is . Her son is a physician. She lives at home. Does not smoke. Does not use alcohol. REVIEW OF SYSTEMS: Not reliable as the patient is somewhat disoriented and somnolent. PHYSICAL EXAMINATION: VITAL SIGNS: Blood pressure is 112/64, pulse 94, respirations 20, and room air saturation 93%. HEART: Showed normal S1 and S2 with a regular rate and rhythm. ABDOMEN: Shows abdominal scar with abdomen being markedly distended and tender just to light touch with percussion tenderness indicating peritoneal irritation. NEUROLOGIC: Exam shows the patient to be sleepy and unable to follow a train of thought. IMPRESSION: The patient has encephalopathy and what appears to be peritonitis, possibly from intestinal ischemia from superior mesenteric vein thrombosis. I discussed the case with her and her . I think her prognosis at this point is very guarded, and I think that comfort measures would be an option, but the only chance for improvement I think otherwise would be aggressive vascular intervention or surgery and arrangements will be made for her to be transferred to [facility] per the family request.
[2017-07-03] MEDS ORDERED: NADOLOL 40 MG TAB PO SCH (21:00)
== END 2017-07-03 15:13 | disposition short-term general hospital (02) | DRG 393 ==
LOC: C.EDB 21:43 → C.4E 07-03 03:42 → ENRESERV 07-03 03:58
PROVIDERS: ADMIT Family Medicine; ATTEND Family Medicine
DX: K55.8 Other vascular disorders of intestine (principal); I81 Portal vein thrombosis; G93.40 Encephalopathy, unspecified; C22.1 Intrahepatic bile duct carcinoma; C78.00 Secondary malignant neoplasm of unspecified lung; R18.8 Other ascites; I85.10 Secondary esophageal varices without bleeding; K74.60 Unspecified cirrhosis of liver; B18.2 Chronic viral hepatitis C; R74.8 Abnormal levels of other serum enzymes; K21.9 Gastro-esophageal reflux disease without esophagitis; D69.6 Thrombocytopenia, unspecified; Z66 Do not resuscitate; Z87.891 Personal history of nicotine dependence; Z79.891 Long term (current) use of opiate analgesic; Z79.899 Other long term (current) drug therapy

== ENCOUNTER → 2017-09-05 | Outpatient (CLI) | payer BC ==
[~2017-09-05] MED LIST changes: -AMOX1TAB43 PO; -CDN15 PO; -CLC100 PO; +DOCU100C31 PO; -OXYC-609 PO; -POLY1POW2 PO; +POLY335019 PO; +TRAM-10 PO; -ULT50X PO; +[UNRECOGNIZED DRUG - REMARK] INH
== END | disposition home or self-care (01) ==
LOC: C.LABSPEC 10:52
PROVIDERS: ATTEND Internal Medicine
DX: N39.0 Urinary tract infection, site not specified (principal)